=== PATIENT | female | born 1985 | race Two or more races ===

== ENCOUNTER 2024-11-06 15:22 | Emergency (ER) | payer OTHER, SELFPAY ==
[2024-11-06 15:45] VITALS: BP 145/86; PULSE 90; RESP 18; TEMP 36.6; O2SAT 98; BMI 23.2
--- NOTE | 2024-11-06 15:46 | ED_ITS ---
HPI - Eye Problem General Chief complaint: Burn/Smoke Inhalation Stated complaint: eye pain Time Seen by Provider: 11/06/24 16:39 Source: patient Mode of arrival: ambulatory Limitations: language barrier (Jenni speaking, user interface developer utilized) History of Present Illness ED Provider: Jo Ann Victor NP HPI Narrative: Patient is a 39-year-old female who presents emergency department for eval uation. She reports that a proximally 14:00 today she was cooking when hot oil had splattered up from the valentine to her face reports that there was a few areas on her forehead and her nose which were burning initially but she rinsed with cold water and has since stopped. She is complaining particularly of a burning sensation to the right eye with blurred vision. Does not wear contact lenses. She denies history of prior injury or blurred vision to this eye. Related Data Previous Rx's ?Medication ?Instructions ?Recorded ofloxacin 0.3 % eye drops 2 drp ophthalmic (eye) QID 5 days 11/06/24 #5 mL Allergies Allergy/AdvReac Type Severity Reaction Status Date / Time No Known Allergies Allergy Verified 11/06/24 15:50 Review of Systems Review of Systems: Yes all other systems are reviewed and are negative PMFSH Past Medical History Attestation statement: The following information was validated with the patient. Source: old records reviewed Physical Exam Vital Signs: Vital Signs: Last Vital Signs Temp 98 F 11/06/24 15:45 Pulse 90 11/06/24 15:45 Resp 18 11/06/24 15:45 BP 145/86 H 11/06/24 15:45 Pulse Ox 98 11/06/24 15:45 O2 Del Method Room Air 11/06/24 15:45 BMI result Body Mass Index 23.2 Appearance: Alert.?Oriented to person, place and time. No acute distress.?Normal affect. Eyes: Pupils equal, round and reactive to light.? EOMI. No nystagmus. Conjunctival normal. Sclera normal. IOP: Left - 17, Right -18. Visual acuity: Not able to be obtained, she is unable to read Snellen eye chart. Fluorescein staining with uptake at 7-8 o'clock. No chemosis. No hyphema. ENT: Pharynx normal.?? Neck: Normal inspection.? Neck supple.?? CVS: Heart sounds normal. Normal heart rate and rhythm.? Pulses normal.?? Respiratory: No respiratory distress.? Lung sounds clear to auscultation bilaterally?? Skin: Skin warm and dry.? Normal skin color.? Extremities: No lower extremity edema.? Neuro: Moves all extremities spontaneously. Sensation intact bilaterally. CN II- XII intact. No focal neuro deficits. Ambulates with normal steady gait. Course Course Course Narrative: This is an RME: Additional HPI, ROS, PE not included below will be deferred to primary provider. RME assessment and note performed by: Geraldine Wolf PA-C This is a [id number] who presents to the ER with complaints of facial pain. Pt states that while she was cooking, oil splattered up into her right eye and into the right side of her face. No abnormality seen on examination, she states burning sensation in her right eye. States that she does not take any medications at home to treat any medical problems. Plan: Eye examination, visual acuity Medical Decision Making Medical Decision Making MDM Narrative: Patient is a 39-year-old female who presents emergency department for evaluation after having cooking oil splash onto the face resulting in a burning pain to the right eye that is constant. On examination she has a corneal abrasion at 07:00 o'clock-08:00 o'clock. Normal IOP. Conjunctivae normal. No painful hordeolum o r painless chalazion on examination. No evidence of foreign body on examination, lid eversion is negative. No subconjunctival hemorrhage. No associated unilateral headache, fixed pupil, associated vomiting, or increased intra-ocular pressure to suggest acute angle glaucoma. No periorbital edema erythema or warmth to suggest periorbital cellulitis, no painful EOMI to suggest orbital cellulitis. Not described as a severe constant boring pain worse at night in the morning, nonradiating, to suggest scleritis. No ciliary flushing or consensual photophobia to suggest uveitis/iritis. On examination does not have corneal opacity or infiltrate with foreign body sensation, mucopurulent discharge or hypopyon in the setting of a presumed recent conjunctivitis to suggest keratitis. No painless acute loss of vision to suggest retinal detachment, vitreous detachment for hemorrhage. Differential Diagnosis Differential Diagnoses: The differential diagnosis associated with the presentation includes (See narrative above) Independent Historian Clinical information obtained from an independent historian. History obtained from or confirmed by: Spouse External Record Review External record reviewed: Outpatient record Prescription Management I considered prescription management with: Antibiotic Discharge Plan Discharge Clinical Impression: Abrasion, corneal Qualifiers: Encounter type: initial encounter Laterality: right Qualified Code(s): S05.01XA - Injury of conjunctiva and corneal abrasion without foreign body, right eye, initial encounter Patient Disposition: Home, Self-Care Instructions: Corneal Abrasion (ED) Additional Instructions: Examination today indicates that you have a corneal abrasion which is a scratch on the surface of the eye/the cornea. For this you have been given a prescription for antibiotic eyedrops. Place 2 drops into the right eye 4 times daily every 4-6 hours. Be sure that you do not touch the tip of the eyedrop to the surface of the eye. You will need to follow-up with an eye doctor to assure that things are healing normally. I provided contact information for the eye doctor associated with our hospital, Dr. Marie, contact their office on Friday. Return to emergency department with new or worsening symptoms or concerns Prescriptions: New ofloxacin 0.3 % drops 2 drp ophthalmic (eye) QID 5 Days Qty: 5 0RF Referrals: Santos Marie [Physician] - Print Language: Other
[2024-11-06] MEDS: Fluorescein Sodium STRIP 1 STRIP EYE-RIGHT (16:56)
[2024-11-06] MEDS: Tetracaine HCl/PF 0.5% Oph Sol 4 ML DROPS 1 DROP EYE-RIGHT (16:56)
[2024-11-06 18:04] VITALS: BP 146/88; PULSE 88; RESP 18; TEMP 36.8; O2SAT 98
[2024-11-06 18:15] VITALS: BP 146/88; PULSE 88; RESP 18; TEMP 36.8; O2SAT 98
== END 2024-11-06 18:16 | disposition home or self-care (01) ==
PROVIDERS: Emergency Provider Emergency Medicine
DX: S05.01XA Injury of conjunctiva and corneal abrasion without foreign body, right eye, initial encounter (principal); X10.2XXA Contact with fats and cooking oils, initial encounter; H57.11 Ocular pain, right eye; Y93.G3 Activity, cooking and baking; Y92.9 Unspecified place or not applicable; Y99.9 Unspecified external cause status
CPT/HCPCS: 99282; 99283

== ENCOUNTER 2024-11-28 11:55 | Emergency (ER) | payer OTHER, SELFPAY ==
[2024-11-28 11:56] VITALS: BP 115/74; PULSE 92; RESP 18; TEMP 36.9; O2SAT 99; BMI 22.4
--- NOTE | 2024-11-28 11:57 | ED_ITS ---
HPI - General Adult General Chief complaint: General Medical Stated complaint: nausea Time Seen by Provider: 11/28/24 15:19 Source: patient and procedures analyst (Farsi) Mode of arrival: ambulatory Limitations: no limitations History of Present Illness ED Provider: Brandon Herrera HPI narrative: 39-year-old female with pmh of TB and anemia presents to the ED for nausea, vomitting, diarrhea since last night and also had a syncopal episode last night due to diarrhea. patient denies having any chest pain, shortness of breath,headache, or abdominal pain before passing out last night. patient states syncopal episode occurred after having diarrhea. Patient denies hitting head, nausea, or vomiting. Related Data Previous Rx's ?Medication ?Instructions ?Recorded ofloxacin 0.3 % eye drops 2 drp ophthalmic (eye) QID 5 days 11/06/24 #5 mL cephalexin 500 mg capsule 500 mg PO QID 7 days #28 caps 11/28/24 ibuprofen 400 mg tablet 400 mg PO Q6H PRN fever or pain 7 11/28/24 days #28 tabs Allergies Allergy/AdvReac Type Severity Reaction Status Date / Time No Known Allergies Allergy Verified 11/28/24 12:15 Review of Systems 2 Review of Systems: nausea, vomitting, diarrhea, syncope ( last night) Yes all other systems are reviewed and are negative PMFSH Social History Social History Advance Directives: No Advance Directives Information Provided: Yes Physical Exam ED Vital Signs: Vital Signs - 24 hr 11/28/24 11:56 11/28/24 15:59 11/28/24 16:45 Temperature 98.4 F 98.5 F 98.5 F Pulse Rate 92 80 80 Respiratory Rate 18 16 16 Blood Pressure 115/74 112/63 112/63 Pulse Oximetry 99 99 99 Oxygen Delivery Method Room Air Room Air Room Air BMI result Body Mass Index 22.4 Const General: cooperative, healthy appearing, comfortable, no acute distress, well developed, alert, awake and Physically active [facility] Head: Yes normal to inspection, Yes No palpable skull fracture present, Yes normocephalic and Yes atraumatic Ears: hearing grossly normal bilaterally, external ears normal, TM's normal bilaterally, TM normal on the right, TM normal on the left, EAC's normal, mastoids normal and no periauricular adenopathy Throat: Yes posterior oropharynx normal, Yes tonsils normal and Yes uvula midline Eyes General: appearance normal, both eyes and all related structures Neck Neck: Yes normal visual inspection, Yes full ROM, Yes no lymphadenopathy, Yes no meningeal signs, Yes trachea midline, Yes supple, No anterior neck swelling and No tender Chest Chest palpation & inspection: normal inspection of the chest and normal palpation of entire chest wall Resp Effort & Inspection: normal respiratory effort and able to speak in complete sentences Auscultation: clear to auscultation bilaterally Cardio Jugular venous distension: no JVD Heart sounds: S1 normal heart sound present and S2 normal heart sound present GI Inspection: Yes normal to inspection Palpation (GI): Soft to palpation, not firm, nontender, no guarding and not rigid General: Yes no CVA tenderness Back/Spine/Pelvis Back: no CVA tenderness and No back tenderness Skin General skin exam: no rashes or lesions noted, elasticity normal and turgor normal Neuro General: gait normal, tone normal, moves all extremities, Normal light touch and pain sensation, no meningeal signs, no focal motor deficits, CN's II-XI intact bilaterally and normal sensation to monofilament Extrem General: Yes normal to inspection, Yes full ROM and Yes capillary refill normal Psych Appearance: grossly normal, well kempt and not disheveled Course Course Course Narrative: This is an RME performed by Sid Victor CNP: Additional HPI, ROS, PE not included below will be deferred to primary provider. Patient is a 39-year-old female Farsi speaking, with no pertinent past medical history, presents for evaluation of nausea, dizziness, generalized unwell feeling since last night. She reports at 23:00 she went to the bathroom had diarrhea upon getting up she felt weak in her legs and arms she tried to wash her face with cold water and ?then I fell?, believes that she was able to get herself back to bed. Due to language barrier her children were unable to call for EMS. She forgot that this is happened and her child reminded her this morning of what had happened. Remains with dizziness, nausea, and a headache. Denies chest pain or shortness of breath. Denies her children being ill with similar gastrointestinal symptoms. Denies possibility for , reporting last menstrual cycle 5 years ago, reports she was receiving hormonal injections up until 5 months ago when she arrived here from [facility]. Plan: EKG, serum labs, viral serologies, urinalysis, hCG Medical Decision Making Medical Decision Making [facility] Narrative: 39-year-old female presents to ED for nausea vomiting diarrhea and a vasovagal syncopal episode occurred last night. Horseheads head CT score is 0 no need for head CT scan. Not suspecting cervical spine fracture. EKG negative STEMI. Troponin after syncopal episode last night negative. Hear Score 0 Not suspecting PE, myocardial infarction, pericarditis, myocarditis, CHF, cardiac tamponade, or any life threatening etiologies. Patient positive Covid. Patient explained worrisome signs and informed to return to the ED immediately. P Differential Diagnosis Differential Diagnoses: The differential diagnosis associated with the presentation includes (COVID, influenza, RSV, strep, for ectopic , UTI) Admission/Observation Consideration of admission/observation: Escalation of care including admission/observation considered Lab Data [facility] Lab Attestation statement: I reviewed the patient's lab results. 11/28/24 12:29 11/28/24 12:29 Labs: Lab Results 11/28/24 Range/Units 12:29 WBC 6.4 (4.8-10.8) X10*3/uL RBC 4.38 (4.20-5.50) X10*6/uL Hgb 12.9 (12.0-16.0) g/dl Hct 37.3 (37.0-47.0) % MCV 85.2 (80.0-98.0) fL MCH 29.5 (27.0-33.0) pg MCHC 34.6 (31.0-35.0) g/dl RDW 11.2 (11.0-16.0) % Plt Count 334 (160-400) X10*3/uL MPV 9.7 (9.4-12.3) fL Immature Gran % (Auto) 0.3 (0.0-0.4) % Neut % (Auto) 59.9 (45-73) % Lymph % (Auto) 30.7 (20-40) % [place] % (Auto) 6.9 (2-11) % Eos % (Auto) 1.7 (0-4) % Baso % (Auto) 0.5 (0-2) % Lymph # (Auto) 2.0 (1.2-4.9) X10*3/uL [place] # (Auto) 0.4 (0.1-1.2) X10*3/uL Eos # (Auto) 0.1 (0.0-0.4) X10*3/uL Baso # (Auto) 0.0 (0.0-0.2) X10*3/uL Abs Immat Gran (auto) 0.02 (0.00-0.03) X10*3/uL Absolute Neuts (auto) 3.8 (2.0-8.3) x10*3/uL Absolute Nucleated RBC 0.000 (0.0-0.012) X10*3/uL Nucleated RBC % (auto) 0.0 (0.0-0.2) /100WBC PT 12.1 (10.9-12.4) SEC INR 1.0 (0.9-1.1) Sodium 140 (135-145) mmol/L Potassium 4.1 (3.3-5.1) mmol/L Chloride 111 H (96-108) mmol/L Carbon Dioxide 21 L (22-29) mmol/L Anion Gap 12 (12-20) BUN 18 H (9-16) mg/dL Creatinine 0.61 (0.5-1.4) mg/dL Estim Creat Clear Calc 89.8 Estimated GFR > 60 Random Glucose 91 (60-115) mg/dL Calcium 9.3 (8.4-10.2) mg/dL Magnesium 2.0 (1.6-2.6) mg/dL Total Bilirubin 0.5 (0.0-1.0) mg/dL AST 28 (5-31) U/L ALT 20 (0-31) U/L Alkaline Phosphatase 63 (39-117) U/L Troponin I High Sens < 2.7 (<3.5-17.0) ng/L B-Natriuretic Peptide < 10 (<100) pg/mL Total Protein 7.7 (6.5-8.0) g/dL Albumin 4.2 (3.5-5.0) g/dL Lipase 17 (8-78) U/L Urine Color Yellow Urine Appearance Clear Urine pH 6.0 (5.0-9.0) Ur Specific [place] 1.025 (1.005-1.025) Urine Protein Trace (Neg-Trace) mg/dL Urine Glucose (UA) Negative (Negative) mg/dL Urine Ketones Negative (Negative) mg/dL Urine Blood Negative (Negative) Urine Nitrite Negative (Negative) Ur Leukocyte Esterase Moderate (2+) H (Negative) Urine RBC 0-2 (0-2) /HPF Urine WBC 21-50 H (0-5) /HPF Ur Squamous Epith Cells 3-5 (0-2) /HPF Urine Bacteria 1+ (None Seen) Hyaline Casts 0-2 (0-2) /LPF Urine Test NEGATIVE (NEGATIVE) Influenza Type A (PCR) NEGATIVE (Negative) Influenza Type B (PCR) NEGATIVE (Negative) RSV RNA Qual (PCR) NEGATIVE (Negative) SARS-CoV-2 RNA (RT-PCR) POSITIVE A (Negative) Independent Interpretation I performed an independent interpretation of an: EKG (Negative Stemi) Independent Historian Clinical information obtained from an independent historian. History obtained from or confirmed by: Other (patient) Prescription Management I considered prescription management with: Antibiotic Discharge Plan Discharge Clinical Impression: COVID-19, Syncope, UTI (urinary tract infection) Patient Disposition: Home, Self-Care Instructions: Urinary Tract Infection in Women (ED), Syncope (ED), COVID-19 (Coronavirus Disease 2019) (ED) Additional Instructions: Recommend follow-up with primary care provider. Return to the ED immediately for any chest pain, shortness of breath, coughing up blood, leg swelling, calf pain, weakness, severe headache, neck pain, or any other concerning symptoms. Prescriptions: New cephalexin 500 mg capsule 500 mg PO QID 7 Days Qty: 28 0RF ibuprofen 400 mg tablet 400 mg PO Q6H PRN (Reason: fever or pain) 7 Days Qty: 28 0RF No Action ofloxacin 0.3 % drops 2 drp ophthalmic (eye) QID 5 Days Qty: 5 0RF Referrals: [facility] [Provider Group] (COVID) Interventions: ED Discharge Assessment Last Done: 11/28/24 16:45 Discharge Date/Time: 11/28/24 16:45 Print Language: Other
--- NOTE | 2024-11-28 12:16 | ECG_ITS ---
Test Reason : PALPITATIONS Blood Pressure : */* mmHG Vent. Rate : 90 BPM Atrial Rate : 90 BPM P-R Int : 140 ms QRS Dur : 72 ms QT Int : 350 ms P-R-T Axes : 72 81 48 degrees QTcB Int : 428 ms Normal sinus rhythm Normal ECG No previous ECGs available Referred By: Jo Ann Victor Electronically Signed By: MEHUL HERNANDEZ MD
[2024-11-28 12:35] LABS: MANUAL DIFF FLAG NO
[2024-11-28 12:37] LABS: Appearance Urine Clear; Basophils Percent Auto 0.5 % (0-2); Color Urine Yellow; Eosinophils Absolute Auto 0.1 X10*3/uL (0.0-0.4); Eosinophils Percent Auto 1.7 % (0-4); Glucose Urine UA Negative (Negative); Hematocrit 37.3 % (37.0-47.0); Hemoglobin 12.9 g/dl (12.0-16.0); Imm Gran Abs Auto 0.02 X10*3/uL (0.00-0.03); Imm Gran Pct Auto 0.3 % (0.0-0.4); Leukocyte Esterase Urine Moderate (2+) (Negative); Lymphocytes Percent Auto 30.7 % (20-40); Mean Corpuscular HGB Conc 34.6 g/dl (31.0-35.0); Mean Corpuscular Hemoglobin 29.5 pg (27.0-33.0); Mean Corpuscular Volume 85.2 fL (80.0-98.0); Mean Platelet Volume 9.7 fL (9.4-12.3); Monocytes Absolute Auto 0.4 X10*3/uL (0.1-1.2); Monocytes Percent Auto 6.9 % (2-11); Neutrophils Absolute Auto 3.8 x10*3/uL (2.0-8.3); Neutrophils Percent Auto 59.9 % (45-73); Nitrite Urine Negative (Negative); Platelet Count 334 X10*3/uL (160-400); Red Blood Count 4.38 X10*6/uL (4.20-5.50); Red Cell Distribution Width 11.2 % (11.0-16.0); Specific Gravity - Urine 1.025 (1.005-1.025); UMIC TRIGGER UACC YES; UPreg QC Valid YES; Urine Blood Negative (Negative); Urine Ketones Negative (Negative); Urine Protein Trace mg/dL (Neg-Trace); White Blood Count 6.4 X10*3/uL (4.8-10.8)
[2024-11-28 12:39] LABS: Bacteria Urine 1+ (None Seen); Hyaline Casts Urine 0-2 /LPF (0-2); RBC Urine 0-2 /HPF (0-2); UACC Culture Trigger YES; Urine Pregnancy NEGATIVE (NEGATIVE); WBC Urine 21-50 /HPF (0-5)
[2024-11-28 12:42] LABS: Prothrombin Time 12.1 SEC (10.9-12.4)
[2024-11-28 12:52] LABS: Alanine Aminotransferase 20 U/L (0-31); Albumin Level 4.2 g/dL (3.5-5.0); Alkaline Phosphatase 63 U/L (39-117); Anion Gap 12 (12-20); Aspartate Amino Transferase 28 U/L (5-31); Bilirubin Total 0.5 mg/dL (0.0-1.0); Blood Urea Nitrogen 18 mg/dL (9-16); Calcium 9.3 mg/dL (8.4-10.2); Carbon Dioxide 21 mmol/L (22-29); Chloride 111 mmol/L (96-108); Creatinine Clr Calc Pharmacy 89.8; Estimated Glomerular Filt Rate > 60; Glucose Random 91 mg/dL (60-115); Lipase 17 U/L (8-78); Potassium 4.1 mmol/L (3.3-5.1); Sodium 140 mmol/L (135-145); Total Protein 7.7 g/dL (6.5-8.0)
[2024-11-28 12:58] LABS: B Type Natriuretic Peptide < 10 pg/mL (<100)
[2024-11-28 13:01] LABS: Troponin-I High Sensitivity < 2.7 ng/L (<3.5-17.0)
[2024-11-28 13:13] LABS: Influenza A PCR NEGATIVE (Negative); Influenza B PCR NEGATIVE (Negative); Resp Syncy Virus RNA Qual PCR NEGATIVE (Negative); SARS COV2 PCR INHOUSE POSITIVE (Negative)
--- OUTSIDE RECORDS SUMMARY | 2024-11-28 13:43 | XMS_ITS | Encounter Summary ---
Author Organization [facility] Address [address] [place] [address] Care Team Providers Care Flanging Operator Name Role Phone Unavailable Primary Care Provider Unavailabl e Reason for Referral * Ophthalmology (Routine) - Pending Review Specialty Diagnoses / Procedures Referred By Angle t Referred To Contact Ophthalmology Diagnoses Abrasion of right cornea, subsequent encounter Kaylin Thayer FNP-C [address] [place] [phone] Phone: tel: fax: [facility] [address] [place] [address] Phone: tel: fax: Referral ID Status Reason Start Date Expiration Date Visits Requested Visits Authorized [id number] Pending Review Specialty Services Required 11/19/2024 11/19/2025 1 1 Comments Corneal abrasion Reason for Visit * Reason Comments Refugee Follow-Up Encounter Details Date Type Department Care Team (Late st Contact Info) Description 11/19/2024 2:00 PM EST Office Visit [address] [phone] Kaylin Thayer FNP-C [address] [place] [id number] Refugee health examination (Primary Dx); Abrasion of right cornea, subsequent encounter; Nonintractable episodic headache, unspecified headache type; Immunization due Social History Tobacco Use Types Packs/Day Years Used Date Smoking Tobacco: Never Passive Smoke Exposure: Never Smokeless Tobacco: Never Alcohol Use Standard Drinks/Week Comments Never 0 (1 standard drink = 0.6 oz pur e alcohol) Social Connections Answer Date Recorded Connectedness 0 06/23/2024 Financial Resource Strain Answer Date R ecorded Financial Resource Strain 0 2023 Stress Answer Date Recorded Stress 0 06/21/2024 Physical Activity Answer Date Recorded Physical Activity 0 06/21/2024 Food Insecurity Answer Date Recorded Food 0 07/16/2024 Transportation Needs Answer Date Record ed Transportation 0 06/21/2024 Housing Stability Answer Date Recorded Housing 0 06/21/2024 Safety and Environment Answer Date Chong rded Safety 1 06/23/2024 Utilities Answer Date Recorded Utilities 0 06/21/2024 Employment Answer Date Recorded Stress 0 06/23/2024 Comments No Sex and Gender Information Value Date Recorded Sex Assigned at Female 06/23/2024 10:24 AM PDT Legal Sex Female 8:04 AM PDT Gender Identity Female 06/23/2024 10:24 AM PDT Sexual Orientation Straight 06/23/2024 10 :24 AM PDT documented as of this encounter Last Filed Vital Signs Vital Sign Reading Time Taken Comments Blood Pressure 100/70 11/19/2024 2:29 PM EST Pulse 80 11/19/2024 2:29 PM EST Temperature - - Respiratory Rate 16 11/19/2024 2:29 PM EST Oxygen Saturation 98% 11/19/2024 2:29 PM EST Inhaled Oxygen Concentration - - Weight 55.3 kg (122 lb) 11/19/2024 2:29 PM EST Height 152.4 cm (5') 11/19/2024 2:29 PM EST Body Mass Index 23.83 11/19/2024 2:29 PM EST documented in this encounter Progress Notes * GALE Calabrese - 11/19/2024 2:29 PM EST Ursula Alexandre is a 39 year old female who presents for her second refugee visit. Accompanied by self. 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 Concerns: Went to urgent care/emergency room for redness in eye. Diagnosis of corneal abrasion. She never received medications. Vision and EOM intact. Reports redness. Reports chronic headaches, no n/v/d. Reports tension squeezing frontal bilateral Has been off depo for 6 months, and is interested in having her periods return Travel-related: No fever, chills, or malaise No vomiting or diarrhea No rash No cough or night sweats. Interim events: No Belarusian classes: Yes Work: No Health insurance:Yes S-15 completed and reviewed. BP 100/70 (Right Arm, Sitting, Regular Adult) Pulse 80 Resp 16 Ht 5' (1.524 m) Wt 122 lb (55.3 kg) LMP 06/20/2020 (Approximate) SpO2 98% BMI 23.83 kg/m?? OB Status Having periods Smoking Status Never BSA 1.53 m?? Physical Exam Constitutional: General: She is not in acute distress. HENT: Right Ear: Tympanic membrane normal. Left Ear: Tympanic membrane normal. Eyes: General: Scleral icterus present. Right eye: No discharge. Left eye: No discharge. Extraocular Movements: Extraocular movements intact. Conjunctiva/sclera: Conjunctivae normal. Pupils: Pupils are equal, round, and reactive to light. Cardiovascular: Rate and Rhythm: Normal rate and regular rhythm. Pulses: Normal pulses. Heart sounds: Normal heart sounds. Pulmonary: Effort: Pulmonary effort is normal. No respiratory distress. Breath sounds: Normal breath sounds. Abdominal: General: Bowel sounds are normal. Palpations: Abdomen is soft. 1. Adjusting well to life in the [place]: Yes. Referral to : No 2. Nutritional status: Body mass index is 23.83 kg/m??. 4. Patient advised to schedule dental evaluation and cleaning. Referral placed: No 5. Screening labs: Review of labs: Giardia: pending TB screening: positive - asymptomatic Referral placed: Yes HIV screening: negative Urinalysis: negative Hep B:: immune Hep C: negative Varicella immune: immune GC/Chlamydia: negative Syphilis: negative Review of CBC: negative 6. Catch up immunizations underway 7. Health education provided: -dental education -encouraged focus on school success/ learning Belarusian -how to address medical emergencies -health Screening and strategies for managing chronic conditions 8. Family planning discussed/ contraception offered: Yes, declined. Discussed return of periods maytake 1-2 years after penitentiary depo use Follow up for complete physical exam in 3 months or PRN Z02.89 Refugee health examination (primary encounter diagnosis) Plan : HCG URINE MCKESSON (POCT) S05.01XD Abrasion of right cornea, subsequent encounter Plan : OFLOXACIN 0.3 % EYE DROPS - Place 3 Drops into the right eye 4 (four) times daily for 5 days REFERRAL TO OPHTHALMOLOGY R51.9 Nonintractable episodic headache, unspecified headache type Plan : ACETAMINOPHEN 500 MG TABLET - Take 1 Tablet by mouth every 6 (six) hours as needed for pain Z23 Immunization due Plan : SARSCOV2 VACC 30MCG/0.3ML JAHAIRA-SUCROSE IM USE documented in this encounter Miscellaneous Notes * Patient Instructions - GALE Calabrese - 11/19/2024 2:56 PM EST If you are not able to keep your appointment please call 24-48 hours before your appointment to cancel or reschedule. documented in this encounter Plan of Treatment Scheduled Referrals Name Type Priority Associated Diagnoses Orde r Schedule REFERRAL TO OPHTHALMOLOGY Referral Routine Abrasion of right cornea, subsequent encounter Ordered: 11/19/2024 documented as of this encounter Procedures Procedure Name Priority Date/Time Associated Diagnosis Comments HCG URINE MCKESSON (POCT) Routine 11/19/2024 3:19 PM EST Refugee health examination documented in this encounter Results * HCG URINE MCKESSON (POCT) (11/19/2024 3:19 PM EST) URINE HCG NEGATIVE NEGATIVE [facility] BACK OFFICE POCT INTERNAL CONTROL PASS PASS [facility] BACK OFF[facility] POCT Urine Urine specimen / Unknown 11/19/2024 3:19 PM EST [facility] - NO BLOOD DRAW Final Result [facility]- BACK OFFICE POCT documented in this encounter Visit Diagnoses Diagnosis Refugee health examination- Primary Health examination of defined subpopulation Abrasion of right cornea, subsequent encounter Nonintractable episodic headache, unspecified headache type Immunization due Need for prophylactic vaccination and inoculation against unspecified single disease documented in this encounter Additional Health Concerns Assessment Noted Time PHQ-9 Depression Total Score: 0 11/19/19 25 2:30 PM PST documented as of this encounter
--- OUTSIDE RECORDS SUMMARY | 2024-11-28 13:43 | XMS_ITS | Clinical Summary ---
Author Organization [facility] Address [address] [place] [address] Care Team Providers Care Service Observer Chief Name Role Phone Unavailable Primary Care Provider Unavailabl e Source Comments PLEASE NOTE, if this patient is a minor, it may be UNLAWFUL to discuss sensitive information that is contained in these records (such as FAMILY PLANNING, MENTAL HEALTH or SUBSTANCE ABUSE) with the minor patient's parent or other person without the patient's specific authorization.[facility] Allergies No known active allergies Medications acetaminophen (TYLENOL) 500 mg tabletIndication s:Nonintractable episodic headache, unspecified headache type Take 1 Tablet by mouth every 6 (six) hours as needed for pain 30 Tablet 1 5 Active acetaminophen (TYLENOL) 500 mg tabletIndication s:Nonintractable episodic headache, unspecified headache type Take 1 Tablet by mouth every 6 (six) hours as needed for pain 30 Tablet 1 4 11/19/19 25 Discontinue d(Reorder (E-Cancel Not Sent)) ofloxacin (OCUFLOX) 0.3 % ophthalmic solutionIndicati ons:Abrasion of right cornea, subsequent encounter Place 3 Drops into the right eye 4 (four) times daily for 5 days 5 mL 5 11/24/19 25 Active Problems Problem Noted Date Diagnosed Date Hepatitis B immune 07/02/2024 Overview (07/02/2024): Per serology Positive QuantiFERON-TB Gold test 07/02/2024 Nonintractable episodic headache 06/23/2024 Hx of tuberculosis Overview (07/07/2024): 15 years ago positive for TB and took meds. Not hospitalized. Class B; abnormal Chest Xray; there are reticular and nodular opacities in both upper lobes, associated with upward traction of both hilia per refugee paperwork. Encounters Date Type Department Care Team Description 11/19/2024 2:00 PM EST Office Visit [address] [id number] Kaylin Thayer FNP-C Refugee health examination (Primary Dx); Abrasion of right cornea, subsequent encounter; Nonintractable episodic headache, unspecified headache type; Immunization due from Last 3 Months Immunizations Name Administration Dates Next Due COVID-19,SARS-COV-2 VACCINE, UNSPECIFIED (US Adm in) 06/07/2024 HEP B, PED/ADOL 06/07/2024,02/03/2024 INFLUENZA, SEASONAL, INJECTABLE 02/03/2024 IPV 02/03/2024 Influenza (FLUBLOK),recombinant,injectable,preservative Free 06/23/2024 [email or web address] COVID-19 VACCINE 02/03/2024 MMR (MMR II/Priorix) 06/07/2024,02/03/2024 Retroficiency COVID-19 (Comirnaty), Mrna, Lnp-s, Pf, Chidi-sucrose, 30 Mcg/0.3 Ml, 12yr+ 11/19/2024 TDAP 06/07/2024 Td (adult) unspecified 02/03/2024 Varicella, Live Vaccine 06/07/2024,02/03/2024 Family History Medical History Relation Name Comments Other (See Comments) Father killed in war No Known Problems Mother Relation Name Status Comments Father Mother Alive Social History Tobacco Use Types Packs/Day Years Used Date Smoking Tobacco: Never Passive Smoke Exposure: Never Smokeless Tobacco: Never Tobacco Cessation:Counseling Given: Not Answered Alcohol Use Standard Drinks/Week Comments Never 0 [...] Orientation Straight 06/23/2024 10 :24 AM PDT Last Filed Vital Signs Vital Sign Reading Time Taken Comments Blood Pressure 100/70 11/19/2024 2:29 PM EST Pulse 80 11/19/2024 2:29 PM EST Temperature 36.9 ??C (98.4 ??F) 06/23/2024 1:21 PM ED T Respiratory Rate 16 11/19/2024 2:29 PM EST Oxygen Saturation 98% 11/19/2024 2:29 PM EST Inhaled Oxygen Concentration - - Weight 55.3 kg (122 lb) 11/19/2024 2:29 PM EST Height 152.4 cm (5') 11/19/2024 2:29 PM EST Body Mass Index 23.83 11/19/2024 2:29 PM EST Plan of Treatment Health Maintenance Due Date Last Done Comments Diabetes Screening 1986 HPV Screening 1986 Pap + HPV 1986 Cervical Cancer Screening 2007 Pap Smear 2007 Relationship Safety Screening/Counseling 06/23/2025 06/23/2024 Tobacco Screening 11/19/2025 11/19/2024 Hypertension Screening (#1) 11/19/2027 Imm-DTaP/Tdap/Td (2 - Td or Tdap) 06/07/2034 024, 02/03/2024 Imm-Hepatitis B Discontinued 06/07/2024, 02/03/2024 HIV Screening Completed 06/23/2024 Hepatitis B Screening Completed 06/23/2024, Hepatitis C Screening Completed 06/23/2024, Imm-Influenza Completed 06/23/2024, 02/03/2024 Alcohol and Drug Screen Completed 11/19/2024, 06/23 Depression Annual Screen Completed 11/19/2024 [id number] Completed 11/19/2024, 05/20, 02/03/2024 Cervical Ablation/Cold-Knife Conization Discontinued Cervical Cryotherapy Discontinued Colposcopy Discontinued Endometrial Biopsy Discontinued Excision/Leep Discontinued HPV Genotyping Discontinued Vaginal Pap Discontinued Vulvoscopy Discontinued Procedures Procedure Name Priority Date/Time Associated Diagnosis Comments HCG URINE MCKESSON (POCT) Routine 11/19/2024 3:19 PM EST Refugee health examination HIV 1/2 AG & AB W/RFLX (4TH GEN) Routine 06/23/2024 2:26 PM EDT Encounter for health examination of refugee HEPATITIS B SURF ANTIBODY HBSAB Routine 06/23/2024 2:26 PM EDT Encounter for health examination of refugee HEPATITIS C AB W/RFLX HCV RNA, QT, RT PCR Routine 06/23/2024 2:26 PM EDT Encounter for health examination of refugee from Last 3 Months or Most Recently Relevant to Health Maintenance Results * HCG URINE MCKESSON (POCT) (11/19/2024 3:19 PM EST) URINE HCG NEGATIVE NEGATIVE [facility] POCT INTERNAL CONTROL PASS PASS [facility] POCT Urine Urine specimen / Unknown 11/19/2024 3:19 PM EST Kaylin Thayer [employer] LAB - NO BLOOD DRAW Final Result [facility] POCT * HEPATITIS C AB W/RFLX HCV RNA, QT, RT PCR (06/23/2024 2:26 PM EDT) HEPATITIS C ANTIBODY NON-REACT EMILE NON-REACT EMILE [employer] [facility] Comment: HCV antibody was non-reactive. There is no laboratory evidence of HCV infection. In most cases, no further action is required. However, if recent HCV exposure is suspected, a test for HCV RNA (test code 54615) is suggested. For additional information please refer to http://education.Flat.to/faq/XMG43i0 (This link is being provided for informational/ educational purposes only.) Blood Blood / Unknown 06/23/2024 2 :26 PM EDT 06/23/2024 2:27 PM EDT Narrative [facility] - 07/03/2024 1:31 AM EDT SPLIT 06/23/2024 FROM [id number] COLLECTION KIT GIVEN TO PATIENT. PATIENT ADVISED TO RETURN. Teodora Elder [facility] - BLOOD DRAW Edited Result - Final [employer] [address] [address], [employer] [address] [address] * HIV 1/2 AG & AB W/RFLX (4TH GEN) (06/23/2024 2:26 PM EDT) [facility] HIV AG/AB, 4TH GEN NON-REAC TIVE NON-REAC TIVE [facility] [employer] [facility] Comment: HIV-1 antigen and HIV-1/HIV-2 antibodies were not detected. There is no laboratory evidence of HIV infection. PLEASE NOTE: This information has been disclosed to you from records whose confidentiality may be protected by state law. ??If your state requires such protection, then the state law prohibits you from making any further disclosure of the information without the specific written consent of the person to whom it pertains, or as otherwise permitted by law. A general authorization for the release of medical or other information is NOT sufficient for this purpose. ?? For additional information please refer to http://education.Genophen.ActSocial/faq/XDE252 (This link is being provided for informational/ educational purposes only.) The performance of this assay has not been clinically validated in patients less than 2 years old. Blood Blood / Unknown 06/23/2024 2 :26 PM EDT 06/23/2024 2:27 PM EDT Narrative [facility] - 07/03/2024 1:31 AM EDT SPLIT 06/23/2024 FROM [id number] COLLECTION KIT GIVEN TO PATIENT. PATIENT ADVISED TO RETURN. [facility] - BLOOD DRAW Final Result Performing Organization Address City/[facility]/ZIP Co de Phone Number [employer] [address] [address], [employer] [facility] [address] [place] [address] * (ABNORMAL) HEPATITIS B SURF ANTIBODY HBSAB (06/23/2024 2:26 PM EDT) HEPATITIS B SURFACE ANTIBODY QL REACTIVE( A) NON-REACT EMILE [employer] Blood Blood / Unknown 06/23/2024 2 :26 PM EDT 06/23/2024 2:27 PM EDT Narrative [employer] - 07/03/2024 1:31 AM EDT SPLIT 06/23/2024 FROM [id number] COLLECTION KIT GIVEN TO PATIENT. PATIENT ADVISED TO RETURN. [employer] Elder [facility] - BLOOD DRAW Edited Result - Final Performing Organization Address City/[facility] Co de Phone Number [employer] [address] [address], [employer] [address] [address] from Last 3 Months or Most Recently Relevant to Health Maintenance Insurance [place] MEDICAID
--- NOTE | 2024-11-28 15:56 | PC.NURSE ---
Pt states a syncope episode last night, pt complains of fever and chills, NO LOC, No thinners during syncope episode per pt.
[2024-11-28 15:59] VITALS: BP 112/63; PULSE 80; RESP 16; TEMP 36.9; O2SAT 99
[2024-11-28 16:45] VITALS: BP 112/63; PULSE 80; RESP 16; TEMP 36.9; O2SAT 99
== END 2024-11-28 16:45 | disposition home or self-care (01) ==
PROVIDERS: Nurse Practitioner Family; Emergency Provider Emergency Medicine
DX: U07.1 COVID-19 (principal); N39.0 Urinary tract infection, site not specified; R11.2 Nausea with vomiting, unspecified; R00.2 Palpitations; R55 Syncope and collapse; Z51.81 Encounter for therapeutic drug level monitoring; Z79.899 Other long term (current) drug therapy
CPT/HCPCS: 0241U; 80053; 81001; 81025; 83690; 83735; 83880; 84484; 85025; 85610; 87086; 93005; 99283; 99284

== ENCOUNTER → 2024-11-28 12:16 | Outpatient (BNV) | payer OTHER, SELFPAY | PROVIDERS: Emergency Provider Emergency Medicine; Visit Provider Internal Medicine Cardiovascular Disease | DX: R00.2 Palpitations (principal) | CPT/HCPCS: 93010 ==

== ENCOUNTER 2025-01-06 22:44 | Emergency (ER) | payer MEDICAID, SELFPAY ==
--- NOTE | ~2025-01-06 | XR_ITS ---
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 No displaced fracture or dislocation. Mild atelectasis in the [id number]. Also question mild pneumonitis in the left lung apex. No radiopaque retained foreign body. IMPRESSION: 1. No acute fracture or dislocation of the left shoulder. 2. Mild atelectasis and/or pneumonitis in partially imaged left upper lobe. This document has been electronically signed by: Drake Padilla MD on 01/07/2025 01:03:40
--- NOTE | ~2025-01-06 | XR_ITS ---
CLINICAL HISTORY: fall, left elbow pain 3 view left elbow Comparison: None Findings: No acute displaced fractures or dislocations. Small effusion suggested. No erosions. No large effusion. No radiopaque foreign body. IMPRESSION: 1. No acute fracture or dislocation. This document has been electronically signed by: Drake Padilla MD on 01/06/2025 23:34:12
[2025-01-06 22:49] VITALS: BP 124/81; PULSE 72; RESP 16; TEMP 36.6; O2SAT 99; BMI 18.9
[2025-01-06 23:33] VITALS: BP 110/71; PULSE 86; RESP 16; O2SAT 97
--- NOTE | 2025-01-07 00:08 | PC.NURSE ---
MD at bedside. Plan for shoulder xray.
[2025-01-07] MEDS: Acetaminophen 325 MG TABLET 975 MG PO (00:09)
[2025-01-07] MEDS: Ibuprofen 400 MG TABLET PO (00:09)
--- NOTE | 2025-01-07 00:14 | PC.NURSE ---
XRay at bedside for imaging of shoulder.
--- NOTE | 2025-01-07 00:37 | ED_ITS ---
HPI - Extremity Problem General Chief complaint: Extremity Injury, Upper Stated complaint: left arm inj Time Seen by Provider: 01/06/25 23:50 Source: patient Mode of arrival: ambulatory Limitations: no limitations History of Present Illness ED Provider: JUAREZ HPI Narrative: 39 yo female with no PMH and not on thinners states she tripped and fell on her stairs while taking out trash. She had no LOC or headstrike she states all of her weight went on L shoulder and L elbow - she is R handed. She has no chest / abdomen / back pain. She did not take any medications prior to arrival - denies any other trauma able to walk. MD Complaint: extremity pain and joint pain Onset (ago): hour(s) (SALES INTERN) Pain Consistency: constant Location: left and upper extremity Quality: aching Radiation: distal Relieving factors: immobilization Exacerbating factors: range of motion and palpation Associated symptoms: denies other symptoms Context: other (trauma) Related Data Previous Rx's ?Medication ?Instructions ?Recorded ofloxacin 0.3 % eye drops 2 drp ophthalmic (eye) QID 5 days 11/06/24 #5 mL cephalexin 500 mg capsule 500 mg PO QID 7 days #28 caps 11/28/24 ibuprofen 400 mg tablet 400 mg PO Q6H PRN fever or pain 7 11/28/24 days #28 tabs Allergies Allergy/AdvReac Type Severity Reaction Status Date / Time No Known Allergies Allergy Verified 01/06/25 22:53 Review of Systems Review of Systems: Constitutional : No Fever, No Chills ENT/Mouth : No Ear Pain, No Hoarseness, No sore throat Eyes: No Eye Pain, No Swelling, No Redness, No Foreign Body Cardiovascular : No Chest Pain, No SOB Respiratory : No Cough, No Dyspnea Gastrointestinal : No Nausea, No Vomiting, No Diarrhea, No abdominal Pain Genitourinary : No Dysuria, No Hematuria Musculoskeletal : positive joint pain, No Myalgias, No Joint Swelling Skin : No Skin lacerations, No rash Neuro : No Weakness, No Numbness, No Loss of Consciousness, No Dizziness, No Headache All other systems reviewed and are negative [facility] Past Medical History Attestation statement: The following information was validated with the patient. Source: old records reviewed Medical History (Updated 01/07/25 @ 00:56 by Ambre Ware DO) COVID-19 Social History Social History (Updated 01/07/25 @ 00:39 by Amber Ware DO) Patient Tobacco Use Status: Never used Tobacco Advance Directives: No Do you have a plan to hurt others: No Plan Physical Exam Vital Signs: Vital Signs: Last Vital Signs Temp 97.8 F 01/06/25 22:49 Pulse 86 01/06/25 23:33 Resp 16 01/06/25 23:33 BP 110/71 01/06/25 23:33 Pulse Ox 97 01/06/25 23:33 O2 Del Method Room Air 01/06/25 23:33 BMI result Body Mass Index 18.9 Appearance: Alert. Oriented X3. No acute distress. Eyes: Pupils equal, round and reactive to light. ENT: Pharynx normal. Atraumatic Neck: Normal inspection. Neck supple. CVS: Normal heart rate and rhythm. Pulses normal. Respiratory: No respiratory distress. Breath sounds normal. Abdomen: Soft and non-tender. atraumtic Back: atraumatic Skin: Skin warm and dry. Normal skin color. Normal skin turgor. Extremities: No lower extremity edema. no pain/deformity to hand or wrist c/o pain posterior elbow - 2+ radial pulse, grasp and SILT intact, L shoulder pain no clavicular pain. Neuro: Oriented X 3. No motor deficit. No sensory deficit. CN2-12 intact Course Course Course Narrative: shoulder read - no chest pain/dyspnea, clear lungs and she has no chest wall trauma doubt pneumonitis/contusion Medications Administered Discontinued Medications Generic Name Dose Route Start Last Admin Trade Name Nayanq PRN Reason Stop Dose Admin Acetaminophen 975 mg 01/07/25 00:05 01/07/25 00:09 Acetaminophen 325 Mg Tablet PO 01/07/25 00:06 975 mg ONCE ONE Administration Ibuprofen 400 mg 01/07/25 00:05 01/07/25 00:09 Ibuprofen 400 Mg Tablet PO 01/07/25 00:06 400 mg ONCE ONE Administration Medical Decision Making Medical Decision Making [facility] Narrative: 39 yo female with fall no headstrike no neck pain she has isolated L elbow and shoulder pain she is NV intact, denies trunk injury or leg injury at this time xrays of L elbow and shoulder and place in sling - she is NV intact, PO pain control Differential Diagnosis Differential Diagnoses: The differential diagnosis associated with the presentation includes sprain, strain, fracture Admission/Observation Consideration of admission/observation: Escalation of care including admission/observation considered xrays negative Independent Interpretation I performed an independent interpretation of an: Plain X-Ray (no fracture) Radiology Impression Discussion of test interpretation with radiology: I have reviewed the radiologist's reading. Prescription Management I considered prescription management with: Pain Medication Procedures Orthopedic Splinting/Casting Injury #1: Side: left Upper Extremity Injury Location: shoulder and elbow Upper Extremity Immobilizer: sling/shoulder immobilizer Additional Comments: NV intact Discharge Plan Discharge Clinical Impression: Elbow sprain Qualifiers: Encounter type: initial encounter Laterality: left Qualified Code(s): S53.402A - Unspecified sprain of left elbow, initial encounter Shoulder sprain Qualifiers: Encounter type: initial encounter Shoulder sprain type: unspecified sprain Laterality: left Qualified Code(s): S43.402A - Unspecified sprain of left shoulder joint, initial encounter Patient Disposition: Home, Self-Care Instructions: Elbow Sprain (ED), Shoulder Sprain (ED) Additional Instructions: negative xrays for broken bones please wear sling for 5 days for pain - move wrist and hand return for numbness, weakness or any other concerns call orthopedics in morning to follow up Prescriptions: No Action ofloxacin 0.3 % drops 2 drp ophthalmic (eye) QID 5 Days Qty: 5 0RF cephalexin 500 mg capsule 500 mg PO QID 7 Days Qty: 28 0RF ibuprofen 400 mg tablet 400 mg PO Q6H PRN (Reason: fever or pain) 7 Days Qty: 28 0RF Referrals: [facility] [place] Orthopedic Surgeons [Provider Group] Print Language: Other
[2025-01-07 01:19] VITALS: BP 112/74; PULSE 74; RESP 16; O2SAT 97
--- NOTE | 2025-01-07 01:19 | PC.NURSE ---
Paul applied. [place] paperwork provided.
[2025-01-07 01:20] VITALS: BP 0/0; PULSE 0; RESP 0; TEMP -17.7; TEMP 0; O2SAT 0
== END 2025-01-07 01:21 | disposition home or self-care (01) ==
PROVIDERS: Emergency Provider Emergency Medicine
DX: S53.402A Unspecified sprain of left elbow, initial encounter (principal); S43.402A Unspecified sprain of left shoulder joint, initial encounter; W10.8XXA Fall (on) (from) other stairs and steps, initial encounter; Y93.E9 Activity, other interior property and clothing maintenance; Y92.018 Other place in single-family (private) house as the place of occurrence of the external cause; Y99.9 Unspecified external cause status
CPT/HCPCS: 73030; 73080; 99283; 99284

== ENCOUNTER → 2025-01-06 23:13 | Outpatient (BNV) | payer MEDICAID, SELFPAY | PROVIDERS: Emergency Provider Emergency Medicine; Visit Provider Radiology Neuroradiology | DX: M25.522 Pain in left elbow (principal); W19.XXXA Unspecified fall, initial encounter | CPT/HCPCS: 73080 ==

== ENCOUNTER → 2025-01-07 00:05 | Outpatient (BNV) | payer MEDICAID, SELFPAY | PROVIDERS: Emergency Provider Emergency Medicine; Visit Provider Radiology Neuroradiology | DX: M25.512 Pain in left shoulder (principal); W19.XXXA Unspecified fall, initial encounter | CPT/HCPCS: 73030 ==

== ENCOUNTER 2025-01-31 14:56 | Emergency (ER) | payer MEDICAID, SELFPAY ==
--- NOTE | ~2025-01-31 | CT_ITS ---
CLINICAL HISTORY: L mastoid tenderness, decreased tearing CT temporal bones without contrast Comparison: None Findings: Right temporal bone: The middle ear cavity ossicles are surrounded with inflammatory tissue which extends into the epi tympanum and petrous bone. The posterior tympanic tympanic membrane, and internal auditory canals are unremarkable. The scutum is sharp. There is erosion of the left facial nerve canal. There is erosion of the semicircular canals. Visualized paranasal sinuses and mastoid air cells are clear. Temporomandibular joints are intact. No acute fracture or dislocation. Left temporal bone: The middle ear ossicles are surrounded with soft tissue inflammatory soft tissue which extends into the epitympanum , hypotympanum and petrous bone. The tympanic membranes are unremarkable. There is erosion of the facial nerve canal There is erosion of semicircular canals with inflammatory soft tissue extending to the middle ear cavity, image 76 -77/289, series 2, and image 123/289, series 2. Scutum is sharp. Visualized paranasal sinuses and mastoid air cells are clear. Temporomandibular joints are intact. No acute fracture or dislocation. Impression: Left otitis media. Right otitis media. 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
[2025-01-31 15:08] VITALS: BP 120/81; PULSE 96; RESP 16; TEMP 36.6; O2SAT 98; BMI 21.1
--- NOTE | 2025-01-31 15:13 | ED.GENADULT ---
HPI - General Adult General Chief complaint: Ear Problems Stated complaint: Severe Ear Pain Time Seen by Provider: 01/31/25 19:10 Source: patient Mode of arrival: ambulatory Limitations: language barrier (Patient was from [place] and speaks [place]) History of Present Illness ED Provider: Dr. Chip Donis HPI narrative: 39-year-old female with no significant past medical history who presents emergency department for evaluation of bilateral ear pain with decreased hearing since last night. She states that she was having pain in both ears right greater than left. She states that she has significant decreased hearing in her right ear compared to her left ear. The patient states that while she was in [place], she was having problems with her ears over to your. With intermittent pain and intermittent loss of hearing but she never had any treatment. She states that last night the pain in both ears came on gradually but became severe. She denied fever, chills, headache, nausea, vomiting or diarrhea. Provider at triage noted the following: PE/vitals: pain on manipulation of left pinna. +mastoid tenderness, no fluctuance. no protrusion of the auricle. left EAC erythematous, partially visualize left TM erythematous CT scan of the Head/mastoids was obtained with the radiology impression below: Impression: Left otitis media. Right otitis media. 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 This document has been electronically signed by: Michael Ray MD on 01/31/2025 18:05:01 Related Data Previous Rx's ?Medication ?Instructions ?Recorded ofloxacin 0.3 % eye drops 2 drp ophthalmic (eye) QID 5 days 11/06/24 #5 mL cephalexin 500 mg capsule 500 mg PO QID 7 days #28 caps 11/28/24 ibuprofen 400 mg tablet 400 mg PO Q6H PRN fever or pain 7 11/28/24 days #28 tabs acetaminophen 500 mg tablet 1,000 mg (2 x 500 mg) PO Q6H PRN 01/31/25 (Tylenol Extra Strength) pain #20 tabs amoxicillin 875 mg-potassium 1 tab PO Q12H 14 days #28 tabs 01/31/25 clavulanate 125 mg tablet ibuprofen 400 mg tablet 400 mg PO TID PRN fever or pain 01/31/25 #30 tabs Allergies Allergy/AdvReac Type Severity Reaction Status Date / Time No Known Allergies Allergy Verified 01/31/25 15:16 Review of Systems Review of Systems: Yes all other systems are reviewed and are negative [facility] Past Medical History Medical History (Updated 01/31/25 @ 21:56 by Chip Donis MD) COVID-19 Social History Social History (Updated 01/07/25 @ 00:39 by Amber Ware DO) Patient Tobacco Use Status: Never used Tobacco Smoked in Last 30 Days: No Use of substances other than those prescribed or required for medical reasons: No Advance Directives: No Advance Directives Information Provided: No Do you have a plan to hurt others: No Plan Physical Exam ED Vital Signs: Vital Signs - 24 hr 01/31/25 15:08 01/31/25 19:18 Temperature 98 F 98.6 F Pulse Rate 96 87 Respiratory Rate 16 16 Blood Pressure 120/81 109/65 Pulse Oximetry 98 98 Oxygen Delivery Method Room Air Room Air BMI result Body Mass Index 21.1 Vital signs were normal Exam: General: Awake, alert in no distress Head: Normocephalic, atraumatic EENT: Mouth revealed moist membranes with no erythema or exudates. External ears appear to be normal. Patient does have tenderness palpation pinna left ear as well as tenderness palpation of the left mastoid area. Both tympanic membranes appear to very erythematous with loss of landmarks. Hearing tuning fork test: Yuen exam: Localizes to the left ear Air versus bone conduction: Bone conduction greater than air conduction in both ears. Neck: Supple with no adenopathy Lungs: Breath sounds symmetric bilaterally, no wheezing, rales or rhonchi Chest: symmetric movement, nontender Heart: regular rate and rhythm, normal S1, S2 no murmurs or rubs Abdomen: soft, non-tender, nondistended, normal bowel sounds Back: no vertebral tenderness, no CVAT Extremities: no deformities, moves all extremities symmetrically Neuro: Awake, alert, oriented, normal speech, cranial nerves intact, moves all extremities symmetrically Psych: Pleasant, cooperative Course Course Course Narrative: This is a Rapid Medical Examination (RME) performed by Bela Fernandes PA-C in triage. Full HPI, ROS, assessment and treatment plan per primary provider in the Main ED. 01/31/25 [id number] JADIEL Miles Hx: 39 yo jenni speaking female here for eval of severe left ear pain and decreased hearing since last night. pain to entire ear. reports posterior ear pain. 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 PE/vitals: pain on manipulation of left pinna. +mastoid tenderness, no fluctuance. no protrusion of the auricle. left EAC erythematous, partially visualize left TM erythematous Plan: ct mastoid Medications Administered Generic Name Dose Route Start Last Admin Trade Name Freq PRN Reason Stop Dose Admin Azithromycin 500 mg/ Sodium 250 mls @ 125 mls/hr 01/31/25 19:55 01/31/25 20:27 Chloride IV 01/31/25 21:54 125 mls/hr ONCE ONE Administration Discontinued Medications Generic Name Dose Route Start Last Admin Trade Name Freq PRN Reason Stop Dose Admin Ceftriaxone Sodium 1 gm 01/31/25 19:55 01/31/25 20:27 Ceftriaxone Sodium 1 Gm Vial IVPUSH 01/31/25 19:56 1 gm ONCE ONE Administration Ketorolac Tromethamine 30 mg 01/31/25 19:55 01/31/25 20:27 Ketorolac Tromethamine 15 Mg/Ml Vial IVPUSH 01/31/25 19:56 30 mg ONCE STA Administration Medical Decision Making Medical Decision Making MDM Narrative: 39-year-old female with no significant past medical history who presents emergency department for evaluation of bilateral ear pain with decreased hearing since last night. She states that she was having pain in both ears right greater than left. She states that she has significant decreased hearing in her right ear compared to her left ear. The patient states that while she was in [place], she was having problems with her ears over to your. With intermittent pain and intermittent loss of hearing but she never had any treatment. She states that last night the pain in both ears came on gradually but became severe. Review of systems were negative. Vital signs were normal. Both tympanic membranes were erythematous with loss of landmarks, patient did have tenderness palpation of the pinna of the left ear and tenderness over the left mastoid area. Yuen test localized to the left ear. Bone conduction was louder than your conduction in both ears. Differential diagnosis: ?Includes but is not limited to bilateral otitis media, left otitis externa, left mastoiditis, anemia, electrolyte abnormalities Course: 20:[address] scan of the patient's head and mastoids was concerning for both left and right otitis media with the erosion of the bilateral facial nerve canals and semicircular canals. I ordered ceftriaxone 1 g IV and Toradol 15 mg IV for the patient. Given the unexpected finding on the CT scan, I will contact [facility] to try to discuss this finding with their ENT since we do not have ENT coverage. 21:49 I did discuss the patient was presentation with the ENT at [facility], Dr. Knight. After this discussion, it was felt that the patient can be treated as an outpatient with close follow-up. The patient will be started on Augmentin 875/125 q.12 hours times 14 days. She was also prescribed Tylenol and ibuprofen for pain. Dr. Knight recommended against steroids at this time. The patient has an appointment in the [facility], [address] [place] [address] at 09:00. I did discuss this with the patient, she was not sure if she can get a ride to the office. I did have our case assistant talk to the patient to see if we can facilitate a ride for her. Admission/Observation Consideration of admission/observation: Escalation of care including admission/observation considered (Yes) Consult Healthcare Provider Management of the patient was discussed with: Lumber Tallier (EENT physician at [facility], Dr. Knight) Lab Data MDM Lab Attestation statement: I reviewed the patient's lab results. Labs: Lab Results 01/31/25 Range/Units 15:29 Beta HCG, Quant < 2 mIU/mL Radiology Impression Discussion of test interpretation with radiology: I have reviewed the radiologist's reading. Radiologist Impression: CLINICAL HISTORY: L mastoid tenderness, decreased tearing CT temporal bones without contrast Comparison: None Findings: Right temporal bone: The middle ear cavity ossicles are surrounded with inflammatory tissue which extends into the epi tympanum and petrous bone. The posterior tympanic tympanic membrane, and internal auditory canals are unremarkable. The scutum is sharp. There is erosion of the left facial nerve canal. There is erosion of the semicircular canals. Visualized paranasal sinuses and mastoid air cells are clear. Temporomandibular joints are intact. No acute fracture or dislocation. Left temporal bone: The middle ear ossicles are surrounded with soft tissue inflammatory soft tissue which extends into the epitympanum , hypotympanum and petrous bone. The tympanic membranes are unremarkable. There is erosion of the facial nerve canal There is erosion of semicircular canals with inflammatory soft tissue extending to the middle ear cavity, image 76 -77/289, series 2, and image 123/289, series 2. Scutum is sharp. Visualized paranasal sinuses and mastoid air cells are clear. Temporomandibular joints are intact. No acute fracture or dislocation. Impression: Left otitis media. Right otitis media. 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 You do have erosions of the facial nerve and semicircular canal bone around your ears. Take Augmentin 875/125, 1 pill every 12 hours for 14 days Take ibuprofen 400 mg pills, 1 pills every 6 hours as needed for pain or fever. Take Tylenol (acetaminophen) 500 mg pills, 2 pills every 6 hours as needed for pain or fever. I spoke to the [facility] ENT physician,Dr. Valenzuela. She made you an appointment in her office for 09:00 a.m. in [address] I gave her your contact phone number of CT scan had/mastoid Impression: Left otitis media. Right otitis media. 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 This document has been electronically signed by: Michael Ray MD on 01/31/2025 18:05:01 Prescriptions: New acetaminophen [Tylenol Extra Strength] 500 mg tablet 1,000 mg PO Q6H PRN (Reason: pain) Qty: 20 0RF ibuprofen 400 mg tablet 400 mg PO TID PRN (Reason: fever or pain) Qty: 30 0RF amoxicillin-pot clavulanate 875-125 mg tablet 1 tab PO Q12H 14 Days Qty: 28 0RF No Action ofloxacin 0.3 % drops 2 drp ophthalmic (eye) QID 5 Days Qty: 5 0RF cephalexin 500 mg capsule 500 mg PO QID 7 Days Qty: 28 0RF ibuprofen 400 mg tablet 400 mg PO Q6H PRN (Reason: fever or pain) 7 Days Qty: 28 0RF Print Language: Other
[2025-01-31 16:01] LABS: HCG Quantitative < 2 mIU/mL
[2025-01-31 19:18] VITALS: BP 109/65; PULSE 87; RESP 16; TEMP 37; O2SAT 98
[2025-01-31] MEDS: cefTRIAXone sodium 1 GM VIAL IVPUSH (20:27)
[2025-01-31] MEDS: Ketorolac Tromethamine 15 MG/ML VIAL 30 MG IVPUSH (20:27)
[2025-01-31] MEDS: Azithromycin 500 MG in 0.9 % Sodium Chloride 250 ML 125 MG IV (20:27)
[2025-01-31 22:51] VITALS: BP 106/71; PULSE 81; RESP 16; TEMP 36.6; O2SAT 99
== END 2025-01-31 22:52 | disposition home or self-care (01) ==
PROVIDERS: Physician Assistant Medical; Emergency Provider Emergency Medicine Emergency Medical Services
DX: H66.93 Otitis media, unspecified, bilateral (principal); R10.2 Pelvic and perineal pain; H92.03 Otalgia, bilateral; Z79.899 Other long term (current) drug therapy
CPT/HCPCS: 36415; 70481; 84702; 96374; 96375; 99284; J0456; J0696; J1885

== ENCOUNTER → 2025-01-31 15:18 | Outpatient (BNV) | payer MEDICAID, SELFPAY | PROVIDERS: Visit Provider Radiology Diagnostic Radiology | DX: H66.93 Otitis media, unspecified, bilateral (principal); G51.8 Other disorders of facial nerve; H83.8X3 Other specified diseases of inner ear, bilateral | CPT/HCPCS: 70481 ==

== ENCOUNTER 2025-02-08 16:12 | Emergency (ER) | payer MEDICAID, SELFPAY ==
[2025-02-08 17:16] VITALS: BP 115/73; PULSE 78; RESP 16; TEMP 36.7; O2SAT 98; BMI 20.4
--- NOTE | 2025-02-08 17:33 | ED.GENADULT ---
HPI - General Adult General Chief complaint: Vaginal Bleeding Stated complaint: Vaginal bleeding History of Present Illness HPI narrative: Seen by Dr. Brown. Related Data Previous Rx's ?Medication ?Instructions ?Recorded ofloxacin 0.3 % eye drops 2 drp ophthalmic (eye) QID 5 days 11/06/24 #5 mL cephalexin 500 mg capsule 500 mg PO QID 7 days #28 caps 11/28/24 ibuprofen 400 mg tablet 400 mg PO Q6H PRN fever or pain 7 11/28/24 days #28 tabs acetaminophen 500 mg tablet 1,000 mg (2 x 500 mg) PO Q6H PRN 01/31/25 (Tylenol Extra Strength) pain #20 tabs amoxicillin 875 mg-potassium 1 tab PO Q12H 14 days #28 tabs 01/31/25 clavulanate 125 mg tablet ibuprofen 400 mg tablet 400 mg PO TID PRN fever or pain 01/31/25 #30 tabs Allergies Allergy/AdvReac Type Severity Reaction Status Date / Time No Known Allergies Allergy Verified 02/08/25 23:14 [facility] Past Medical History Medical History COVID-19 Social History Social History Patient Tobacco Use Status: Never used Tobacco Smoked in Last 30 Days: No Use of substances other than those prescribed or required for medical reasons: No Advance Directives: No Do you have a plan to hurt others: No Plan Patient : No Physical Exam ED Vital Signs: Vital Signs - 24 hr 02/08/25 17:16 Temperature 98.1 F Pulse Rate 78 Respiratory Rate 16 Blood Pressure 115/73 Pulse Oximetry 98 Oxygen Delivery Method Room Air BMI result Body Mass Index 20.4 Course Course Course Narrative: RME: 39-year-old female presents to ED for abdominal pain and vaginal bleeding for the past 3 weeks. Patient states last menstruation was 2 weeks ago and now she is bleeding again. Patient states this happened before in the past. Labs ordered. Medical Decision Making Lab Data 02/08/25 17:40 02/08/25 17:40 Labs: Lab Results 02/08/25 Range/Units 17:40 WBC 6.8 (4.8-10.8) X10*3/uL RBC 4.21 (4.20-5.50) X10*6/uL Hgb 12.2 (12.0-16.0) g/dl Hct 36.2 L (37.0-47.0) % MCV 86.0 (80.0-98.0) fL MCH 29.0 (27.0-33.0) pg MCHC 33.7 (31.0-35.0) g/dl RDW 11.9 (11.0-16.0) % Plt Count 306 (160-400) X10*3/uL MPV 10.1 (9.4-12.3) fL Immature Gran % (Auto) 0.3 (0.0-0.4) % Neut % (Auto) 58.8 (45-73) % Lymph % (Auto) 31.8 (20-40) % [place] % (Auto) 6.6 (2-11) % Eos % (Auto) 1.8 (0-4) % Baso % (Auto) 0.7 (0-2) % Lymph # (Auto) 2.2 (1.2-4.9) X10*3/uL [place] # (Auto) 0.5 (0.1-1.2) X10*3/uL Eos # (Auto) 0.1 (0.0-0.4) X10*3/uL Baso # (Auto) 0.1 (0.0-0.2) X10*3/uL Abs Immat Gran (auto) 0.02 (0.00-0.03) X10*3/uL Absolute Neuts (auto) 4.0 (2.0-8.3) x10*3/uL Absolute Nucleated RBC 0.000 (0.0-0.012) X10*3/uL Nucleated RBC % (auto) 0.0 (0.0-0.2) /100WBC PT 11.6 (10.9-12.4) SEC INR 1.0 (0.9-1.1) APTT 31.6 (26.0-36.8) SEC Sodium 138 (135-145) mmol/L Potassium 4.3 (3.3-5.1) mmol/L Chloride 106 (96-108) mmol/L Carbon Dioxide 25 (22-29) mmol/L Anion Gap 11 L (12-20) BUN 19 H (9-16) mg/dL Creatinine 0.61 (0.5-1.4) mg/dL Estim Creat Clear Calc 102.9 Estimated GFR > 60 Random Glucose 95 (60-115) mg/dL Calcium 9.6 (8.4-10.2) mg/dL Total Bilirubin 0.3 (0.0-1.0) mg/dL AST 23 (5-31) U/L ALT 17 (0-31) U/L Alkaline Phosphatase 54 (39-117) U/L Total Protein 7.5 (6.5-8.0) g/dL Albumin 4.4 (3.5-5.0) g/dL Beta HCG, Quant < 2 mIU/mL Discharge Plan Discharge Clinical Impression: Dysfunctional uterine bleeding, Abnormal vaginal bleeding Patient Disposition: Home, Self-Care Prescriptions: No Action ofloxacin 0.3 % drops 2 drp ophthalmic (eye) QID 5 Days Qty: 5 0RF acetaminophen [Tylenol Extra Strength] 500 mg tablet 1,000 mg PO Q6H PRN (Reason: pain) Qty: 20 0RF ibuprofen 400 mg tablet 400 mg PO TID PRN (Reason: fever or pain) Qty: 30 0RF amoxicillin-pot clavulanate 875-125 mg tablet 1 tab PO Q12H 14 Days Qty: 28 0RF cephalexin 500 mg capsule 500 mg PO QID 7 Days Qty: 28 0RF ibuprofen 400 mg tablet 400 mg PO Q6H PRN (Reason: fever or pain) 7 Days Qty: 28 0RF Discharge Date/Time: 02/08/25 20:14 Print Language: Other
[2025-02-08 17:44] LABS: MANUAL DIFF FLAG NO
[2025-02-08 17:46] LABS: Basophils Absolute Auto 0.1 X10*3/uL (0.0-0.2); Basophils Percent Auto 0.7 % (0-2); Eosinophils Absolute Auto 0.1 X10*3/uL (0.0-0.4); Eosinophils Percent Auto 1.8 % (0-4); Hematocrit 36.2 % (37.0-47.0); Hemoglobin 12.2 g/dl (12.0-16.0); Imm Gran Abs Auto 0.02 X10*3/uL (0.00-0.03); Imm Gran Pct Auto 0.3 % (0.0-0.4); Lymphocytes Absolute Auto 2.2 X10*3/uL (1.2-4.9); Lymphocytes Percent Auto 31.8 % (20-40); Mean Corpuscular HGB Conc 33.7 g/dl (31.0-35.0); Mean Platelet Volume 10.1 fL (9.4-12.3); Monocytes Absolute Auto 0.5 X10*3/uL (0.1-1.2); Monocytes Percent Auto 6.6 % (2-11); Neutrophils Percent Auto 58.8 % (45-73); Platelet Count 306 X10*3/uL (160-400); Red Blood Count 4.21 X10*6/uL (4.20-5.50); Red Cell Distribution Width 11.9 % (11.0-16.0); White Blood Count 6.8 X10*3/uL (4.8-10.8)
[2025-02-08 17:55] LABS: Prothrombin Time 11.6 SEC (10.9-12.4)
[2025-02-08 17:57] LABS: Partial Thromboplastin Time 31.6 SEC (26.0-36.8)
[2025-02-08 18:17] LABS: Alanine Aminotransferase 17 U/L (0-31); Albumin Level 4.4 g/dL (3.5-5.0); Anion Gap 11 (12-20); Aspartate Amino Transferase 23 U/L (5-31); Bilirubin Total 0.3 mg/dL (0.0-1.0); Blood Urea Nitrogen 19 mg/dL (9-16); Calcium 9.6 mg/dL (8.4-10.2); Carbon Dioxide 25 mmol/L (22-29); Chloride 106 mmol/L (96-108); Creatinine Clr Calc Pharmacy 102.9; Estimated Glomerular Filt Rate > 60; Glucose Random 95 mg/dL (60-115); HCG Quantitative < 2 mIU/mL; Potassium 4.3 mmol/L (3.3-5.1); Sodium 138 mmol/L (135-145); Total Protein 7.5 g/dL (6.5-8.0)
--- OUTSIDE RECORDS SUMMARY | 2025-02-08 19:24 | XMS_ITS | Data Portability ---
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 Primary Care Provider Assessment Encounter Date Assessment Date Assessment LastModified by Organization Details LastModified Time 02/01/2025 02/01/2025 39-year-old female with longstanding recurrent ear infections and pain which have not always been treated, presents with worsening right-sided otalgia and hearing loss, not associated with dizziness, for which she was seen in the emergency department at [place] with CT showing otitis media with erosion of the bilateral facial nerve canals and semicircular canals. She was started on Augmentin. On exam today, she is well-appearing. There is no facial nerve weakness. She has TM perforations bilaterally, larger on the right, without any active drainage. There is some tenderness to palpation over the right mastoid without any underlying fluctuance or erythema with the pain extending into the neck. On review of the imaging, there was no erosion of the outer cortex of the mastoid. Audiometric testing showed a mixed loss bilaterally, worse on the right, with primarily conductive components. I recommended continuing the antibiotics. I sent in some otic topical drops with steroids in hopes this may provide some symptomatic relief. Will see her back in the short-term to ensure symptomatic improvement. I recmmended strict dry ear precautions. I suspect most of the CT findings are chronic given her history. In the long-term, recommend evaluation with Dr. Stuart. The perforations are likely physiologic. She will probably benefit from amplification whether with standard hearing aids or [place]. [email or web address] Not available 02/03/2025 16:52:54 Plan of Treatment Reminders Order Date Submit Date Provider Last Modified By Organization Details Last Modified Time Details Appointments Establish ed 15 2024 02:00P M DAISY YOUNGER PA-C Not available Not available Not available Otology Referral 2024 01:00P M PAKO STUART MD Not available Not available Not available Lab None recorded. Referral None recorded. Procedures None recorded. Surgeries None recorded. Imaging None recorded. Medication Orders TobraDex 0.3 %-0.1 % eye drops,woo pension 2024 025 [id number] [employer], [address] [place], [address], 02/01/2025 11:16:22 Patient TargetsNo targets recorded. Patient InstructionsNo instructions recorded. Reason for Referral None Reported. Results Created Date Observation Date Name Description Value Unit Range Abnormal Flag Note LastModifiedBy Organization Detail LastModifiedTime 02/02/2001/31/2025 CT, tempo ral bone, w/o contr ast No observ ation record ed. [facility] Radiology ([facility]) [address] [facility] [address], [place], [address], 02/02/2025 10:16:19 02/09/2001/31/2025 CT, tempo ral bone, w/o contr ast No observ ation record ed. [email or web address] Not Available 01/19 10:39:51 Result Notes None recorded. Problems Name Problem SNOMED Code Status Onset Date Resolution Date Notes Provider Name and Address Organization Details Recorded Time Marginal perforation of right tympanic membrane 5388822551336 109 Active 2024 PAYTON OVALLES MD [address] [address], [place], [address], [facility] - [facility] 5 11:14:41 Central perforation of left tympanic membrane 2217679995599 107 Active 2024 PAYTON OVALLES MD 100 [facility] [address], [place], [address], [facility] - [facility] 5 11:14:46 Central perforation of right tympanic membrane 5999669260965 101 Active 2024 PAYTON OVALLES MD 100 [facility] [address], [place], [address], [facility] 11:14:51 Mixed conductive and sensorineur al hearing loss, bilateral 659628107 Active 2024 ACACIA KAHN, AuD [address] [facility] [address], [place], [address], [facility] 11:36:16 Problem Notes None recorded. Procedures Surgical History Date Name Laterality Status Provider Name and Address Organization Details Recorded Time 02/02/20 25 Tympanometry (35884) completed ACACIA KAHN, [facility] [address] [facility],[address] [address], [place], [address], [facility] 02/01/2025 11:31:13 02/02/20 25 [employer] (99392) completed ACACIA KAHN [facility] [address] [facility],[address] [address], [place], [address], [facility] 02/01/2025 11:30:45 Imaging Results Imaging Date Name Status LastModified by Organiz ation Details LastModified Time 01/31/2025 CT, temporal bone, w/o contrast completed [facility] Radiology (Centralized) [address] [facility] [address], [place], [address], 02/02/2025 10:16:19 01/31/2025 CT, temporal bone, w/o contrast [facility] Information not available 02/08/2025 10:39:51 Procedure Notes None recorded. Medical Equipment None Reported. Medications Name Sig Start Date Stop Date Status Note LastModified by Organization Details LastModified Time ofloxacin 0.3 % eye drops PLACE THREE DROP IN THE RIGHT EYE FOUR TIMES DAILY FOR FIVE DAYS 02/01 completed Not Available Not Available Not Available acetaminophe n 500 mg tablet TAKE ONE TABLET BY MOUTH EVERY 6 HOURS NEEDED FOR PAIN active Not Available Not Available No t Available cephalexin 500 mg capsule TAKE ONE CAPSULE BY MOUTH FOUR TIMES DAILY 02/01 completed Not Available Not Available Not Available ibuprofen 400 mg tablet TAKE 1 TABLET BY MOUTH EVERY 6 HOURS NEEDED FOR FEVER OR PAIN active Not Available Not Available No t Available TobraDex 0.3 %-0.1 % eye drops,suspen jack 3 drops into each ear twice a day for 2 weeks 2024 active Not Available Not Available Not Avai lable Vitals Date Recorded Body height Body mass index (BMI) Body weight Provider Name and Address Organization Details Last Updated DateTime 02/01/2025 157.48 cm 20.1 kg/m2 60556.16 g Oly Melissa [place] - [facility] 02/01/2025 10:45:54 Social History None recorded. Functional Status None recorded. Mental Status None recorded. Family History Nothing Reported. Medical History No medical history recorded. Gynecological HistoryNo gynecological history recorded. Obstetrics History GPAL:G 0 P 0 0 0 0 Past Encounters Encounter ID Performer Location Encounter Start Date Encounter Closed Date Diagnosis/Indication Diagnosis SNOMED-CT Code Diagnosis ICD10 Code Diagnosis Note [id number] PAYTON OVALLES MD [facility] [address] [address] 02/01/2025 10:33:32 02/01/2025 12:10:44 Central perforation of left tympanic membrane 4562769904 896538 H72.02 Central pe rforation of right tympanic membrane 0588662895 835814 H72.01 Mixed cond uctive and sensorineural hearing loss, bilateral 547854296 H90.6 Audiologic al evaluation results:Ri ght ear:{{Norm al Normal through 2 kHz Mild M oderate Mo derately-s evere Emily re* Profou nd}} {{hearing hearing. s loping to a mild slopi ng to a moderate s loping to moderately severe slo ping to severe slo ping to profound f lat* high frequency low frequency mid frequency cookie bite phillips curve}} {{with sen sorineural hearing loss with condu ctive hearing loss with mixed hearing loss with mixed hearing loss.#}}Le ft ear:{{Norm al Normal through 2 kHz Mild M oderate Mo derately-s evere Emily re* Profou nd}} {{hearing hearing. s loping to a mild slopi ng to a moderate s loping to moderately severe slo ping to severe slo ping to profound f lat high frequency low frequency mid frequency cookie bite phillips curve risi ng to a moderate#} } {{with sen sorineural hearing loss with condu ctive hearing loss with mixed hearing loss with mixed hearing loss.#}} Tympanomet ry:Right Ear:{{Type A Type A with rounded peak Type A with double peak Type As Type As with rounded peak Type Ad Type C Type C, shallow & rounded peak Type B* Type B with large volume Cou ld not maintain a hermetic seal}}Left Ear:{{Type A Type A with rounded peak Type A with double peak Type As Type As with rounded peak Type Ad Type C Type C, shallow & rounded peak Type B* Type B with large volume Cou ld not maintain a hermetic seal}} Health Concerns Section Related Observation LastModified by Organization Detai ls LastModified Time None Recorded Concern Status LastModified by Organization Details LastModified Time None Recorded Advance Directives Directive None Recorded Payers Encounter Date Sequence Insurance Name Policy Number Policy Sanchez Covered Member ID Sanchez Member ID Guarantor Name 02/01/2025 1 [place] [facility] Ursula Alexandre [id number] Ursula Alexandre Notes Date Note Type Note Provider Name and Address Organization Details Recorded Time 02/01/2025 text/html 39-year-old dewey moreira presents today for ear painED last night in [place] with hearing loss and painShe had a CT of the temporal bone showing left otitis media, right otitis media with erosion of bilateral facial nerve canals and semicircular canals There is inflammatory tissue surrounding the middle ear ossicles extending to the epitympanum and petrous boneImaging reviewed through [facility] showing contracted mastoid bones bilaterally had some drainage from the bilateral ears, right is worse has had trouble with the ears for years, had multiple infections in [place] hearing poor at baseline has not been treated for the infections no ear surgeryhad infections in childhood tinnitus more on the rightdoes not remember how longno dizzinessno headaches still ear pain worse on the right PAYTON OVALLES MD [address] [place] [address],[address] [address], [place], [address], [place] - [facility] 02/03/2025 16:54:07 OBGyn Episode No OBEpisode recorded.
[2025-02-08 19:25] LABS: Alkaline Phosphatase 54 U/L (39-117)
== END 2025-02-08 20:14 | disposition home or self-care (01) ==
PROVIDERS: Physician Assistant; Emergency Provider Emergency Medicine
DX: N93.8 Other specified abnormal uterine and vaginal bleeding (principal); R10.2 Pelvic and perineal pain
CPT/HCPCS: 36415; 80053; 84702; 85025; 85610; 85730; 99281; 99283

== ENCOUNTER 2025-02-08 22:45 | Emergency (ER) | payer MEDICAID, SELFPAY ==
[2025-02-08 23:12] VITALS: BP 107/72; PULSE 81; RESP 16; TEMP 36.6; O2SAT 99; BMI 21.1
[2025-02-09 00:32] VITALS: BP 114/69; PULSE 78; RESP 16; TEMP 36.6; O2SAT 98
[2025-02-09 00:48] LABS: Appearance Urine Clear; Color Urine Yellow; Glucose Urine UA Negative (Negative); Leukocyte Esterase Urine Negative (Negative); Nitrite Urine Negative (Negative); PH 5.5 (5.0-9.0); Specific Gravity - Urine 1.025 (1.005-1.025); UMIC TRIGGER UACC YES; Urine Blood Trace (Negative); Urine Ketones Trace mg/dL (Negative); Urine Protein Negative (Neg-Trace)
[2025-02-09 00:53] LABS: Bacteria Urine None Seen (None Seen); Hyaline Casts Urine 0-2 /LPF (0-2); Squamous Epithelial Cell Urine 0-2 /HPF (0-2); WBC Urine 0-5 /HPF (0-5)
--- NOTE | 2025-02-09 01:57 | ED_ITS ---
HPI - Female Genitourinary General Chief complaint: Urogenital-Female Stated complaint: Vaginal bleeding Time Seen by Provider: 02/09/25 01:24 Source: patient and associate professor of chemistry (Faroese) Mode of arrival: ambulatory Limitations: no limitations History of Present Illness ED Provider: DR. Sandhu HPI Narrative: 39-year-old female who speak belarusian came in for evaluation of abnormal vaginal bleeding for the past 3 days, no CP, no SOB, no dizziness, stated that she change about 5 pads this morning, patient just moved to the [facility] from [place] used to take contraception injection every 3 months that she did not take it for the last 7 months. Patient has no doctor or OBGYN yet. Declined chance of being . Related Data Previous Rx's ?Medication ?Instructions ?Recorded ofloxacin 0.3 % eye drops 2 drp ophthalmic (eye) QID 5 days 11/06/24 #5 mL cephalexin 500 mg capsule 500 mg PO QID 7 days #28 caps 11/28/24 ibuprofen 400 mg tablet 400 mg PO Q6H PRN fever or pain 7 11/28/24 days #28 tabs acetaminophen 500 mg tablet 1,000 mg (2 x 500 mg) PO Q6H PRN 01/31/25 (Tylenol Extra Strength) pain #20 tabs amoxicillin 875 mg-potassium 1 tab PO Q12H 14 days #28 tabs 01/31/25 clavulanate 125 mg tablet ibuprofen 400 mg tablet 400 mg PO TID PRN fever or pain 01/31/25 #30 tabs Allergies Allergy/AdvReac Type Severity Reaction Status Date / Time No Known Allergies Allergy Verified 02/08/25 23:14 Review of Systems Review of Systems: All other systems are reviewed and are negative Constitutional: Reports as per HPI and Reports no additional constitutional complaints Eyes: Reports as per HPI and Reports no additional eye complaints Reports system reviewed and no additional complaints, except as documented Cardiovascular: Reports as per HPI and Reports no additional cardiovascular complaints Respiratory: Reports as per HPI and Reports no additional respiratory complaints Gastrointestinal: Reports as per HPI and Reports no additional gastrointestinal complaints Genitourinary: Reports no additional female genitourinary complaints Musculoskeletal: Reports no additional musculoskeletal complaints Skin/Breast: Reports system reviewed and no additional complaints, except as docu Psychiatric: Reports no additional psychiatric complaints Endocrine: Reports no additional endocrine complaints Hematologic/Lymphatic: Reports no additional hematologic/lymphatic complaints Allergic/Immunologic: Reports no additional allergic/immunologic complaints Reports system reviewed and no additional complaints, except as documented and Reports Abnormal speech present [facility] Past Medical History Medical History COVID-19 Social History Social History Patient Tobacco Use Status: Never used Tobacco Smoked in Last 30 Days: No Use of substances other than those prescribed or required for medical reasons: No Advance Directives: No Do you have a plan to hurt others: No Plan Patient : No Physical Exam Vital Signs: Vital Signs: Last Vital Signs Temp 97.9 F 02/09/25 00:32 Pulse 78 02/09/25 00:32 Resp 16 02/09/25 00:32 BP 114/69 02/09/25 00:32 Pulse Ox 98 02/09/25 00:32 O2 Del Method Room Air 02/09/25 00:32 BMI result Body Mass Index 21.1 Vital signs have been reviewed and appear to be correct. Blood pressure elevated. Heart rate normal. Respiratory rate normal. Temperature normal. Oxygen saturation normal. Appearance: Alert. Oriented X3. No acute distress. Head: Normal external exam. Normocephalic. Atraumatic. No Masterson signs noted. No raccoon eyes noted Eyes: PERRLA. EOMI. Conjunctiva and sclera normal. Eyelids normal. ENT: TM's Normal. Pharynx normal. Uvula midline. Moist mucous membranes. No trismus noted. No drooling noted. No muffled voice noted. Neck: Normal inspection. Neck supple. FROM. No adenopathy. Thyroid Normal. No meningeal signs. No neck mass noted. CVS: Normal heart rate and rhythm. Heart sound normal. No murmurs noted. Pulses normal throughout. Respiratory: No respiratory distress. Painless inspiration. Breath sounds norm al. No wheezes/rales/rhonchi noted. Chest nontender. No accessory muscle usage noted or decreased air movement noted. Abdomen: Soft and nontender. Bowel sounds normal in all 4 quadrants. No distenti on noted. No organomegaly noted. No visible injury noted. Pelvic exam: Patient declined pelvic exam and will follow-up with OBGYN. Back: No CVA tenderness. Full range of motion noted. Skin: Skin warm and dry. Normal skin color. Normal skin turgor. No rashes/lesions/lacerations noted. Extremities: No lower extremity edema. Extremities exhibit normal range of motion. Extremities nontender. Neuro: Oriented X 3. Cranial nerve exam: II-XII are grossly intact No motor deficit. No sensory deficit. Reflexes normal. Course Reevaluation(s) Reevaluation #1: Abnormal vaginal bleeding, hemodynamically, CBC is at baseline. Patient declined pelvic exam tonight hand will follow-up with Dr. Cruz. Faroese associate professor of chemistry was used throughout the evaluation made sure patient fully understand instruction. Time: 02:05 Medical Decision Making Differential Diagnosis Differential Diagnoses: The differential diagnosis associated with the presentation includes (, abnormal vaginal bleeding, severe anemia, hemodynamic instability) Admission/Observation Consideration of admission/observation: Escalation of care including adm ission/observation considered Lab Data MDM Lab Attestation statement: I reviewed the patient's lab results. Labs: Lab Results 02/09/25 Range/Units 00:40 Urine Color Yellow Urine Appearance Clear Urine pH 5.5 (5.0-9.0) Ur Specific [place] 1.025 (1.005-1.025) Urine Protein Negative (Neg-Trace) mg/dL Urine Glucose (UA) Negative (Negative) mg/dL Urine Ketones Trace (Negative) mg/dL Urine Blood Trace H (Negative) Urine Nitrite Negative (Negative) Ur Leukocyte Esterase Negative (Negative) Urine RBC 3-5 H (0-2) /HPF Urine WBC 0-5 (0-5) /HPF Ur Squamous Epith Cells 0-2 (0-2) /HPF Urine Bacteria None Seen (None Seen) Hyaline Casts 0-2 (0-2) /LPF Discharge Plan Discharge Clinical Impression: Abnormal vaginal bleeding Patient Disposition: Home, Self-Care Instructions: Menorrhagia (ED) Prescriptions: No Action ofloxacin 0.3 % drops 2 drp ophthalmic (eye) QID 5 Days Qty: 5 0RF acetaminophen [Tylenol Extra Strength] 500 mg tablet 1,000 mg PO Q6H PRN (Reason: pain) Qty: 20 0RF ibuprofen 400 mg tablet 400 mg PO TID PRN (Reason: fever or pain) Qty: 30 0RF amoxicillin-pot clavulanate 875-125 mg tablet 1 tab PO Q12H 14 Days Qty: 28 0RF cephalexin 500 mg capsule 500 mg PO QID 7 Days Qty: 28 0RF ibuprofen 400 mg tablet 400 mg PO Q6H PRN (Reason: fever or pain) 7 Days Qty: 28 0RF Referrals: Felipe Cruz MD [Physician] - Print Language: Other
[2025-02-09 02:20] VITALS: BP 116/79; PULSE 78; RESP 16; TEMP 36.4; O2SAT 98
== END 2025-02-09 02:22 | disposition home or self-care (01) ==
PROVIDERS: Emergency Provider Emergency Medicine
DX: N93.9 Abnormal uterine and vaginal bleeding, unspecified (principal)
CPT/HCPCS: 81001; 99283; 99284

== ENCOUNTER 2025-02-16 17:11 | Emergency (ER) | payer MEDICAID, SELFPAY ==
--- NOTE | ~2025-02-16 | XR_ITS ---
CLINICAL HISTORY: fall right ankle pain swelling Radiographs of the right ankle, 3 views Comparison: None Findings: There is no fracture or dislocation. The ankle mortise is congruent. The joint spaces are preserved without osteophytosis. Bone mineralization is normal. Soft tissue swelling. Impression: No fracture. This document has been electronically signed by: Bee Woodruff MD on 02/16/2025 18:28:22
--- NOTE | ~2025-02-16 | XR_ITS ---
CLINICAL HISTORY: fall right knee pain Radiographs of the right knee, 4 views Comparison: None Findings: There is no fracture or dislocation. No joint space narrowing or osteophytosis. Bone mineralization is normal. No knee joint effusion. Soft tissue swelling. Impression: No fracture or joint effusion. This document has been electronically signed by: Bee Woodruff MD on 02/16/2025 18:27:25
--- NOTE | ~2025-02-16 | XR_ITS ---
CLINICAL HISTORY: fall right foot pain swelling Radiographs of the right foot, 3 views Comparison: None Findings: No fracture or dislocation. The joint spaces are preserved without osteophytosis. Bone mineralization is normal. Soft tissue swelling. Impression: No fracture. This document has been electronically signed by: Bee Woodruff MD on 02/16/2025 18:27:05
[2025-02-16 17:20] VITALS: BP 107/69; PULSE 73; RESP 16; TEMP 36.3; O2SAT 99; BMI 21.5
--- NOTE | 2025-02-16 17:24 | ED.LOWEXIN ---
HPI - Extremity Injury (Lower) General Chief Complaint: Extremity Injury, Lower Stated Complaint: Right foot pain (Fall) Time Seen by Provider: 02/16/25 17:51 Source: patient Mode of arrival: wheelchair Limitations: no limitations History of Present Illness ED Provider: Dr. 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 Patient only speaks Jenni. According to the patient, yesterday patient states that she was feeling a bit weak which she usually does when she does not eat the whole day. Patient states that when she was walking down the stairs, patient missed a step and fell down the stairs. Patient states that she injured her right ankle and has been unable to bear weight since then. According to the patient she did not have any other injuries. She did not hit her head and did not lose consciousness. Patient denies any chest pain or shortness of breath. Related Data Previous Rx's ?Medication ?Instructions ?Recorded ofloxacin 0.3 % eye drops 2 drp ophthalmic (eye) QID 5 days 11/06/24 #5 mL cephalexin 500 mg capsule 500 mg PO QID 7 days #28 caps 11/28/24 ibuprofen 400 mg tablet 400 mg PO Q6H PRN fever or pain 7 11/28/24 days #28 tabs acetaminophen 500 mg tablet 1,000 mg (2 x 500 mg) PO Q6H PRN 01/31/25 (Tylenol Extra Strength) pain #20 tabs amoxicillin 875 mg-potassium 1 tab PO Q12H 14 days #28 tabs 01/31/25 clavulanate 125 mg tablet ibuprofen 400 mg tablet 400 mg PO TID PRN fever or pain 01/31/25 #30 tabs acetaminophen 500 mg tablet 500 mg PO Q6H PRN fever or pain 02/16/25 #20 tabs ibuprofen 600 mg tablet 600 mg PO TID PRN pain #14 tabs 02/16/25 Allergies Allergy/AdvReac Type Severity Reaction Status Date / Time No Known Allergies Allergy Verified 02/16/25 17:21 Review of Systems Review of Systems: Constitutional : No Weight loss, No Fever, No Chills, No Night Sweats, No Fatigue, No Malaise ENT/Mouth : No Hearing loss, No Ear Pain, No Nasal Congestion, No Sinus Pain, No Hoarseness, No sore throat, No Rhinorrhea, No Swallowing Difficulty Eyes: No Eye Pain, No Swelling, No Redness, No Foreign Body, No Discharge, No Vision Changes Cardiovascular : No Chest Pain, No SOB, No Dyspnea on Exertion, No Orthopnea, No Edema, No Palpitations Respiratory : No Cough, No Sputum, No Wheezing, No Smoke Exposure, No Dyspnea Gastrointestinal : No Nausea, No Vomiting, No Diarrhea, No Constipation, No abdominal Pain, No Hematochezia, No Melena Genitourinary : no irregular bleeding, No Dysuria, No Urinary Frequency, No Hematuria, No Urinary Incontinence, No Urgency, No Flank Pain, No Urinary Flow Changes, No Hesitancy Musculoskeletal : Complaining of right ankle pain No Myalgias, No Joint Swelling Skin : No Skin Lesions, No rash Neuro : No Weakness, No Numbness, No Paresthesias, No Loss of Consciousness, No Dizziness, No Headache Psych : No Anxiety/Panic, No Depression, No SI/HI/AH/VH, No Social Issues, Heme/Lymph: No Bruising, No Bleeding,No Lymphadenopathy Endocrine : No Polyuria, No Polydipsia, No Temperature Intolerance [facility] Past Medical History Medical History COVID-19 Social History Social History Patient Tobacco Use Status: Never used Tobacco Advance Directives: No Advance Directives Information Provided: Yes Physical Exam Vital Signs: Vital Signs: Last Vital Signs Temp 97.4 F 02/16/25 17:20 Pulse 86 02/16/25 18:58 Resp 16 02/16/25 17:20 BP 122/72 02/16/25 18:58 Pulse Ox 99 02/16/25 17:20 O2 Del Method Room Air 02/16/25 17:20 BMI result Body Mass Index 21.5 Const: Other: Appearance: Alert. Oriented X3. No acute distress. Eyes: Pupils equal, round and reactive to light. ENT: Pharynx normal. Neck: Normal inspection. Neck supple. No lymph nodes noted. No crepitus CVS: Normal heart rate and rhythm. Pulses normal. Normal S1 and S2 Respiratory: No respiratory distress. Breath sounds normal. No Wheezing. No rales Abdomen: Soft and nontender. No rigidity. No distention. Skin: Skin warm and dry. Normal skin color. Normal skin turgor. Extremities: Pain to palpation over the lateral malleolus of the right foot, patient unable to bear weight, minimal swelling over the malleolus, little ecchymosis Neuro: Oriented X 3. No motor deficit. No sensory deficit. Moving all extremities. No slurred speech. CN 2 through 12 grossly intact Psych: calm, cooperative, normal affect Course Course Course Narrative: This is a Rapid Medical Examination (RME) performed by Bela Fernandes PA-C in triage. Full HPI, ROS, assessment and treatment plan per primary provider in the Main ED. 02/16/25 1725 JADIEL Miles Hx: 39 yo jenni speaking female here for eval of right ankle/foot/knee and low back pain s/p fall down 13 stairs last night. Patient states that she was descending the stairs in her home when her vision went black causing her to fall down the stairs. She denies head strike or LOC. Reports pain to her right lower extremity and low back. No thinners. Patient states she had blood work done yesterday. States her blood pressure may have been affected causing her to fall. PE/vitals: Tender to palpation over right ankle and right knee. Ambulating with limping gait. Neurovascularly intact distally. Tender to palpation of midline lumbar spine without palpable step-off deformity Plan: Labs, ortho vitals, EKG, imaging Medical Decision Making Medical Decision Making [facility] Narrative: My interpretation of labs: No significant abnormality in patient's hematology and chemistry, hCG negative, troponin negative EKG: Sinus rhythm, heart rate 72, no ST segment depression or elevation, no T-wave inversion, QTC 422 X-rays negative for fracture I discussed the above findings with the patient, patient will follow-up with orthopedics if she does not improve within a week. Patient was giving a dose of IM ketorolac Patient was provided with crutches and taught how to use them Differential Diagnosis Differential Diagnoses: The differential diagnosis associated with the presentation includes (Ankle fracture, contusion, dislocation, sprain) Lab Data [facility] Lab Attestation statement: I reviewed the patient's lab results. 02/16/25 18:04 02/16/25 18:04 Labs: Lab Results 02/16/25 Range/Units 18:04 WBC 8.4 (4.8-10.8) X10*3/uL RBC 3.96 L (4.20-5.50) X10*6/uL Hgb 11.4 L (12.0-16.0) g/dl Hct 34.1 L (37.0-47.0) % MCV 86.1 (80.0-98.0) fL MCH 28.8 (27.0-33.0) pg MCHC 33.4 (31.0-35.0) g/dl RDW 11.7 (11.0-16.0) % Plt Count 306 (160-400) X10*3/uL MPV 10.2 (9.4-12.3) fL Immature Gran % (Auto) 0.2 (0.0-0.4) % Neut % (Auto) 60.4 (45-73) % Lymph % (Auto) 31.3 (20-40) % [place] % (Auto) 6.1 (2-11) % Eos % (Auto) 1.4 (0-4) % Baso % (Auto) 0.6 (0-2) % Lymph # (Auto) 2.6 (1.2-4.9) X10*3/uL [place] # (Auto) 0.5 (0.1-1.2) X10*3/uL Eos # (Auto) 0.1 (0.0-0.4) X10*3/uL Baso # (Auto) 0.1 (0.0-0.2) X10*3/uL Abs Immat Gran (auto) 0.02 (0.00-0.03) X10*3/uL Absolute Neuts (auto) 5.0 (2.0-8.3) x10*3/uL Absolute Nucleated RBC 0.000 (0.0-0.012) X10*3/uL Nucleated RBC % (auto) 0.0 (0.0-0.2) /100WBC Sodium 140 (135-145) mmol/L Potassium 4.5 (3.3-5.1) mmol/L Chloride 109 H (96-108) mmol/L Carbon Dioxide 24 (22-29) mmol/L Anion Gap 12 (12-20) BUN 26 H (9-16) mg/dL Creatinine 0.60 (0.5-1.4) mg/dL Estim Creat Clear Calc 91.3 Estimated GFR > 60 Random Glucose 90 (60-115) mg/dL Calcium 9.4 (8.4-10.2) mg/dL Magnesium 2.0 (1.6-2.6) mg/dL Total Bilirubin 0.2 (0.0-1.0) mg/dL AST 29 (5-31) U/L ALT 23 (0-31) U/L Alkaline Phosphatase 51 (39-117) U/L Troponin I High Sens < 2.7 (<3.5-17.0) ng/L Total Protein 7.1 (6.5-8.0) g/dL Albumin 4.3 (3.5-5.0) g/dL Beta HCG, Quant < 2 mIU/mL Independent Interpretation I performed an independent interpretation of an: Plain X-Ray Radiology Impression Discussion of test interpretation with radiology: I have reviewed the radiologist's reading. Radiologist Impression: There is no fracture or dislocation. The ankle mortise is congruent. The joint spaces are preserved without osteophytosis. Bone mineralization is normal. Soft tissue swelling. There is no fracture or dislocation. No joint space narrowing or osteophytosis. Bone mineralization is normal. No knee joint effusion. Soft tissue swelling. No fracture or dislocation. The joint spaces are preserved without osteophytosis. Bone mineralization is normal. Soft tissue swelling. Discharge Plan Discharge Clinical Impression: Ankle sprain and strain Patient Disposition: Home, Self-Care Instructions: Ankle Sprain (ED) Additional Instructions: Please follow-up with your primary care physician tomorrow. If you have any worsening or new symptoms, please return to the emergency room or call 911 Prescriptions: New ibuprofen 600 mg tablet 600 mg PO TID PRN (Reason: pain) Qty: 14 0RF acetaminophen 500 mg tablet 500 mg PO Q6H PRN (Reason: fever or pain) Qty: 20 0RF No Action ofloxacin 0.3 % drops 2 drp ophthalmic (eye) QID 5 Days Qty: 5 0RF acetaminophen [Tylenol Extra Strength] 500 mg tablet 1,000 mg PO Q6H PRN (Reason: pain) Qty: 20 0RF ibuprofen 400 mg tablet 400 mg PO TID PRN (Reason: fever or pain) Qty: 30 0RF amoxicillin-pot clavulanate 875-125 mg tablet 1 tab PO Q12H 14 Days Qty: 28 0RF cephalexin 500 mg capsule 500 mg PO QID 7 Days Qty: 28 0RF ibuprofen 400 mg tablet 400 mg PO Q6H PRN (Reason: fever or pain) 7 Days Qty: 28 0RF Referrals: Junie Munoz PA-C [Physician Shirt Finisher] - 1 week Print Language: Other
--- NOTE | 2025-02-16 17:39 | ECG_ITS ---
Test Reason : DIZZNESS Blood Pressure : */* mmHG Vent. Rate : 72 BPM Atrial Rate : 72 BPM P-R Int : 152 ms QRS Dur : 76 ms QT Int : 386 ms P-R-T Axes : 64 81 63 degrees QTcB Int : 422 ms Normal sinus rhythm with sinus arrhythmia Normal ECG When compared with ECG of 28-Nov-2024 12:25, No significant change was found Referred By: Enid Fernandes Electronically Signed By: Hayes Herrera
[2025-02-16 18:09] LABS: MANUAL DIFF FLAG NO
--- OUTSIDE RECORDS SUMMARY | 2025-02-16 18:09 | XMS_ITS | Data Portability ---
Author Organization [place] - [facility], Allergy Address [address] [address] Care Team Providers Care Dough Catcher Name Role Phone [facility] Primary Care Provider Assessment Encounter Date Assessment Date Assessment LastModified by Organization Details LastModified Time 02/01/2025 02/01/2025 39-year-old female with longstanding recurrent ear infections and pain which have not always been treated, presents with worsening right-sided otalgia and hearing loss, not associated with dizziness, for which she was seen in the emergency department at [place] with CT showing otitis media with erosion [...] eye drops,woo pension 2024 025 [id number] [employer], [address] [place], [address], 02/01/2025 11:16:22 Patient TargetsNo targets recorded. Patient InstructionsNo instructions recorded. Reason for Referral None Reported. Results Created Date Observation Date Name Description Value Unit Range Abnormal Flag Note LastModifiedBy Organization Detail LastModifiedTime 02/02/2001/31/2025 CT, tempo ral bone, w/o contr ast No observ ation record ed. [facility] ([facility]) [address] [facility] [address], [place], [address], 02/02/2025 10:16:19 02/09/2001/31/2025 CT, tempo ral bone, w/o contr ast No observ ation record ed. [email or web address] Not Available 01/19 10:39:51 Result Notes None recorded. Problems Name Problem SNOMED Code Status Onset Date Resolution Date Notes Provider Name and Address Organization Details Recorded Time Marginal perforation of right tympanic membrane 9764512006968 109 Active 2024 PAYTON OVALLES MD [address] [address], [place], [address], [facility] - [facility] 5 11:14:41 Central perforation of left tympanic membrane 4996505751885 107 Active 2024 PAYTON OVALLES MD [address] [facility] [address], [facility] [place], [address], [facility] - [facility] 5 11:14:46 Central perforation of right tympanic membrane 1999773020355 101 Active 2024 PAYTON OVALLES MD [address] [facility] [address], [place], [address], [facility] 11:14:51 Mixed conductive and sensorineur al hearing loss, bilateral 243671028 Active 2024 ACACIA KAHN, AuD [address] [facility] [address], [place], [address], [facility] 11:36:16 Problem Notes None recorded. Procedures Surgical History Date Name Laterality Status Provider Name and Address Organization Details Recorded Time 02/02/20 25 Tympanometry (03230) completed ACACIA KAHN, [facility] [address] [facility],[address] [address], [place], [address], [facility] 02/01/2025 11:31:13 02/02/20 [employer] (70544) completed ACACIA KAHN [facility] [address] [facility],[address] [address], [place], [address], [facility] 02/01/2025 11:30:45 Imaging Results Imaging Date Name Status LastModified by Organiz ation Details LastModified Time 01/31/2025 CT, temporal bone, w/o contrast completed [facility] ([facility]) [address] [facility] [address], [place], [address], 02/02/2025 10:16:19 01/31/2025 CT, [facility], w/[facility] Information not available 02/08/2025 10:39:51 Procedure Notes [...] ibuprofen 400 mg tablet TAKE 1 TABLET ORALLY 3 TIMES A DAY NEEDED FOR FEVER OR PAIN active Not Available Not Available No t Available amoxicillin 875 mg-potassium clavulanate 125 mg tablet TAKE 1 TABLET BY MOUTH EVERY 12 HOURS FOR 14 DAYS active Not Available Not Available No t Available tobramycin 0.3 %-dexamethas one 0.1 % eye drops,suspen jack INSTILL 3 DROPS INTO EACH EAR TWICE A DAY FOR 2 WEEKS active Not Available Not Available No t Available Vitals Date Recorded Body height Body mass index (BMI) Body weight Provider Name and Address Organization Details Last Updated DateTime 02/01/2025 157.48 cm 20.1 kg/m2 01976.16 g Oly Melissa [place] - [facility] 02/01/2025 10:45:54 Social History None recorded. Functional Status None recorded. Mental Status None recorded. Family History Nothing Reported. Medical History No medical history recorded. Gynecological HistoryNo gynecological history recorded. Obstetrics History GPAL:G 0 P 0 0 0 0 Past Encounters Encounter ID Performer Location Encounter Start Date Encounter Closed Date Diagnosis/Indication Diagnosis SNOMED-CT Code Diagnosis ICD10 Code Diagnosis Note [id number] PAYTON OVALLES MD [facility] on [address] [place] [address] 02/01/2025 10:33:32 02/01/2025 12:10:44 Central perforation of left tympanic membrane 4173293246 330718 H72.02 Central pe rforation of right tympanic membrane 4554407463 621397 H72.01 Mixed cond uctive and sensorineural hearing loss, bilateral 246528824 H90.6 Audiologic al evaluation results:Ri ght ear:{{Norm [...] Sanchez Member ID Guarantor Name 02/01/2025 1 [place]: [facility] Ursula Alexandre [id number] Ursula Alexandre Notes Date Note Type Note Provider Name and Address Organization Details Recorded Time 02/01/2025 text/html 39-year-old dewey moreira presents today for ear painED last night in [place] with hearing loss and painShe had a [...] worse on the right PAYTON OVALLES MD [address] [place] [address],[address] [address], [place], [address], [place] - [facility] 02/03/2025 16:54:07 OBGyn Episode No OBEpisode recorded.
--- OUTSIDE RECORDS SUMMARY | 2025-02-16 18:09 | XMS_ITS | Encounter Summary ---
Author Organization [facility] Address [address] [place] [address] Care Team Providers Care Porcelain Technician Name Role Phone Kaylin Thayer Primary Care Provider [phone] Reason for Referral * Gynecology (Routine) - Authorized Specialty Diagnoses / Procedures Referred By Angle sanderson Referred To Contact Obstetrics & Gynecology / Family Practice Diagnoses Irregular menstrual bleeding Kaylin Thayer FNP-C [address] [place] [address] Phone: tel: fax: [facility] [address] [place] [phone] Phone: tel: fax: Referral ID Status Reason Start Date Expiration Date Visits Requested Visits Authorized [id number] Authorized Continuity of Care 02/15/2025 02/15/2026 1 1 Comments Reason for Referral: CONTRACEPTION: N/A COUNSELING/TESTING: N/A EVALUATION/TREATMENT: Pap Smear/Cervical Cancer Screening, Menstrual Pain/Irregularity, and Abnormal Bleeding Comments/Additional Information: Irregular bleeding - also due for PAP smear Reason for Visit * Reason Comments Complete Physical Exam Encounter Details Date Type Department Care Team (Latest Contact Info) Description 02/15/2025 3:00 PM EDT Office Visit [facility] [address] [place] [phone] Kaylin Thayer FNP-C [address] [place] [phone] Routine general medical examination at a health care facility (Primary Dx); Irregular menstrual bleeding; Dysuria; Encounter for Depo-Provera contraception Social History Tobacco Use Types Packs/Day Years [...] Sign Reading Time Taken Comments Blood Pressure 106/70 02/15/2025 2:32 PM EDT Pulse 76 02/15/2025 2:32 PM EDT Temperature 36.7 ??C (98.1 ??F) 02/15/2025 2:32 PM ED T Respiratory Rate 16 02/15/2025 2:32 PM EDT Oxygen Saturation - - Inhaled Oxygen Concentration - - Weight 50.8 kg (112 lb) 02/15/2025 2:32 PM EDT Height 152.4 cm (5') 02/15/2025 2:32 PM EDT Body Mass Index 21.87 02/15/2025 2:32 PM EDT documented in this encounter Progress Notes * Ondina Kelley RN - 02/15/2025 3:01 PM EDT Buy and bill stock used. [facility]: [id number] Lot: [id number] EXP: 10/19/2027 * Kaylin Thayer, TEST SPECIALIST-C - 02/15/2025 2:36 PM EDT SUBJECTIVE Interpreting services provided by Harry nitrator operator interpreted for today's visit. via telephone. HPI: Ursula Alexandre is a 39 year old female who presents to clinic today for annual physical. Reports abnormal menstrual bleeding- reports heavy bleeding. Reports in the last 2 month, had 3 periods. Each episode lasted 10 days. She reports bleeding was heavy the whole episode., with pelvic cramping She went to ER for this concern- she was neg for hcg and UA. She reports being on depo about 7 months ago Reports concern for urinary infection- reports this occurs every time when she starts her period Reports vaginal burning symptoms, no urgency or frequency. Health Maintenance: Patient's last menstrual period was 02/11/2025 (approximate). 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 Not hospitalized. Class B; abnormal Chest Xray; there are reticular and nodular opacities in both upper lobes, associated with upward traction of both hilia per refugee paperwork. Past Medical History: Diagnosis Date Hepatitis B immune 07/02/2024 Per serology Hx of tuberculosis 15 years ago positive for TB and took meds. Not hospitalized. Positive QuantiFERON-TB Gold test 07/02/2024 No past surgical history on file. Social Documentation as of 02/15/2025 None Social History Tobacco Use Smoking status: Never Passive exposure: Never Smokeless tobacco: Never Vaping Use Vaping status: Never Used Substance Use Topics Alcohol use: Never Drug use: Never Family History Problem Relation Name Age of Onset No Known Problems Mother Other (See Comments) Father killed in war Current Outpatient Medications Medication Sig Dispense Refill medroxyPROGESTERone (DEPO-PROVERA) 150 mg/mL syringe Inject 1 mL into the muscle every 3 (three) months 1 mL 3 acetaminophen (TYLENOL) 500 mg tablet Take 1 Tablet by mouth every 6 (six) hours as needed for pain30 Tablet 1 Current Facility-Administered Medications Medication Dose Route Frequency Provider Last Rate Last Admin medroxyPROGESTERone (Depo-Provera) injection syringe 150 mg 150 mg intramuscular Every 3 months Kaylin Thayer TEST SPECIALIST-C 150 mg at 02/15/25 1500 No Known Allergies Depression screen: PHQ-9 Total Score (Auto Calculated) 0 at 11/19/2024 2:30 PM 11/19/2024 2:30 PM How many times in the past year have you had 4 or more drinks in a day? NONE How many times in the past year have you used a recreational drug or used a prescription medicationfor nonmedical reasons? NONE Did patient decline PHQ screening? No Little interest or pleasure in doing things Not at all Feeling down, depressed or hopeless [include irritable if under 18] Not at all PHQ2 Score 0 Little interest or pleasure in doing things Not at all Feeling down, depressed or hopeless [include irritable if under 18] Not at all Trouble falling or staying asleep, or sleeping too much Not at all Feeling tired or having little energy Not at all Poor appetite or overeating Not at all Feeling bad about yourself - or that you are a failure or have let yourself or your family down Notat all Trouble concentrating on things, such as reading the newspaper or watching television? Not at all Moving or speaking so slowly that other people could have noticed? Or the opposite - being so fidgety or restless that you have been moving around a lot more than usual Not at all Thoughts you would be better off or of hurting yourself in some way Not at all If you checked off any problems, how difficult have these problems made it for you to do your work,take care of things at home, or get along with other people? Not difficult at all PHQ-9 Total Score (Auto Calculated) 0 Depression Severity: None-minimal Review of Systems: Remainder ROS: See HPI, systems reviewed and are otherwise negative or noncontributory. OBJECTIVE Vitals: BP 106/70 (Right Arm, Sitting, Regular Adult) Pulse 76 Temp 98.1 ??F (36.7 ??C) Resp 16 Ht 5' (1.524 m) Wt 112 lb (50.8 kg) LMP 02/11/2025 (Approximate) BMI 21.87 kg/m?? OB Status Having periods Smoking Status Never BSA 1.47 m?? Physical Exam: Vitals reviewed Physical Exam Constitutional: General: She is not in acute distress. Cardiovascular: Rate and Rhythm: Normal rate and regular rhythm. Pulses: Normal pulses. Heart sounds: Normal heart sounds. Pulmonary: Effort: Pulmonary effort is normal. Breath sounds: Normal breath sounds. Abdominal: General: Bowel sounds are normal. Palpations: Abdomen is soft. Musculoskeletal: General: Normal range of motion. Urinalysis: Lab Results Component Value Date URLEUK NEGATIVE 02/15/2025 URNITRITE NEGATIVE 02/15/2025 URPROT 30 (1+) (A) 02/15/2025 URBLOOD TRACE HEMOLYZED (A) 02/15/2025 URSPECGRAV 1.030 (A) 02/15/2025 URKETONES NEGATIVE 02/15/2025 URBILI NEGATIVE 02/15/2025 URGLUC NEGATIVE 02/15/2025 URCOLOR YELLOW 02/15/2025 Labs/Screenings: The ASCVD Risk score (Janna DK, et al., 2019) failed to calculate for the following reasons: The 2019 ASCVD risk score is only valid for ages 40 to 79 Lab Results Component Value Date HGB 13.4 06/23/2024 HCT 41.2 06/23/2024 No results found for: HGBA1C No results found for: TRIGLYC , CHOL , HDL , LDL , LDLHDL , CHOLHDL , VLDL , NONHDL No results found for: CREATININE , CREATININECL , EGFR ASSESSMENT/PLAN: Ursula Alexandre was seen today for complete physical exam. #1 Routine general medical examination at a health care facility (Primary) - BLOOD COUNT COMPLETE AUTO&AUTO DIFRNTL WBC - COMPREHENSIVE METABOLIC PANEL - THYROID CASCADING REFLEX PANEL - LIPID PANEL - HEMOGLOBIN GLYCOSYLATED A1C #2 Irregular menstrual bleeding - REF TO - FAMILY PLANNING - US PELVIC COMPLETE & TRANSVAG - medroxyPROGESTERone (DEPO-PROVERA) 150 mg/mL syringe; Inject 1 mL into the muscle every 3 (three)months Dispense: 1 mL; Refill: 3 - medroxyPROGESTERone (Depo-Provera) injection syringe 150 mg #3 Dysuria - URINALYSIS, MULTISTIX (POCT) - SURESWAB ADVANCED VAGINITIS PLUS, TMA #4 Encounter for Depo-Provera contraception - medroxyPROGESTERone (DEPO-PROVERA) 150 mg/mL syringe; Inject 1 mL into the muscle every 3 (three)months Dispense: 1 mL; Refill: 3 - medroxyPROGESTERone (Depo-Provera) injection syringe 150 mg - HCG URINE MCKESSON (POCT) The following were addressed in today's visit: Depression screening:DEPRESSION FU PROVIDED (MU CMS-2): Counseling / education in visit Weight management:BMI follow up plan: The patient was counseled regarding nutrition and physical activity. Tobacco Intervention:provided smoking cessation counseling Counselled for healthy lifestyle, Dietary habits, Physical activity and regular exercise. Discussed Medication adherence, safe sex, safe driving. Patient understands and agrees with plan. Encouraged to follow up with any questions or concerns. Return in about 6 months (around 08/17/2025) for follow up. documented in this encounter Miscellaneous Notes * Patient Instructions - GALE Calabrese - 02/15/2025 3:27 PM EDT If you are not able to keep your appointment please call 24-48 hours before your appointment to cancel or reschedule. documented in this encounter Plan of Treatment Upcoming Encounters Date Type Department Care Team (Late st Contact Info) Description 05/11/2025 2:20 PM EDT Office Visit [address] [phone] Scheduled Orders Name Type Priority Associated Diagnoses Orde r Schedule US PELVIC COMPLETE & TRANSVAG Imaging Routine Irregular menstrual bleeding Ordered: 02/15/2025 SURESWAB ADVANCED VAGINITIS PLUS, TMA Lab Routine Dysuria Ordered: 02/15/2025 Scheduled Referrals Name Type Priority Associated Diagnoses Orde r Schedule REF TO - FAMILY PLANNING Referral Routine Irregular menstrual bleeding Ordered: 02/15/2025 documented as of this encounter Procedures Procedure Name Priority Date/Time Associated Diagnosis Comments THYROID CASCADING REFLEX PANEL Routine 02/15/2025 3:22 PM EDT Routine general medical examination at a health care facility BLOOD COUNT COMPLETE AUTO&AUTO DIFRNTL WBC Routine 02/15/2025 3:22 PM EDT Routine general medical examination at a [facility] care facility HEMOGLOBIN GLYCOSYLATED A1C Routine 02/15/2025 3:22 PM EDT Routine general medical examination at a [facility] care facility LIPID PANEL Routine 02/15/2025 3:22 PM EDT Routine general medical examination at a [facility] care facility COMPREHENSIVE METABOLIC PANEL Routine 02/15/2025 3:22 PM EDT Routine general medical examination at a [facility] care facility HCG URINE MCKESSON (POCT) Routine 02/15/2025 3:12 PM EDT Encounter for Depo-Provera contraception URINALYSIS, MULTISTIX (POCT) Routine 02/15/2025 3:11 PM EDT Dysuria documented in this encounter Results * HEMOGLOBIN GLYCOSYLATED A1C (02/15/2025 3:22 PM EDT) HEMOGLOBIN A1C 5.2 <5.7 % [email or web address] Comment: For the purpose of screening for the presence of diabetes: <5.7% ? Consistent with the absence of diabetes 5.7-6.4% ?Consistent with increased risk for diabetes ?(prediabetes) > or =6.5% ??Consistent with diabetes This assay result is consistent with a decreased risk of diabetes. Currently, no consensus exists regarding use of hemoglobin A1c for diagnosis of diabetes in children. According to [place] [employer] (ADA) guidelines, hemoglobin A1c <7.0% represents optimal control in non- diabetic patients. Different metrics may apply to specific patient populations. Standards of Medical Care in Diabetes(ADA). ?? Blood Blood / Unknown 02/15/2025 3 :22 PM EDT 02/15/2025 3:22 PM EDT Narrative [employer] [facility] - 02/16/2025 5:14 PM EDT FASTING:UNKNOWN Kaylin Thayer TEST SPECIALIST-C LAB - BLOOD DRAW Final Re sult [facility] [address] [address], [facility] [address] [phone] * (ABNORMAL) LIPID PANEL (02/15/2025 3:22 PM EDT) [facility] CHOLESTEROL, TOTAL 170 <200 mg/dL [facility] HDL CHOLESTEROL 47(L) > OR = 50 mg/dL [facility] TRIGLYCERIDES 65 <150 mg/dL [facility] LDL-CHOLESTEROL 108(H) 99 mg/dL (calc) [facility] Comment: Reference range: <100 Desirable range <100 mg/dL for primary prevention; ?? <70 mg/dL for patients with CHD or diabetic patients with > or = 2 CHD risk factors. LDL-C is now calculated using the Enoch-Ashley calculation, which is a validated novel method providing better accuracy than the Friedewald equation in the estimation of LDL-C. Enoch SS et al. TYLER. 2013;310(19): 4794-3878 (http://education.[employer]/faq/FHS237) CHOL/HDLC RATIO 3.6 <5.0 (calc) [facility] NON-HDL CHOLESTEROL 123 <130 mg/dL (calc) [email or web address] Comment: For patients with diabetes plus 1 major ASCVD risk factor, treating to a non-HDL-C goal of <100 mg/dL (LDL-C of <70 mg/dL) is considered a therapeutic option. Blood Blood / Unknown 02/15/2025 3 :22 PM EDT 02/15/2025 3:22 PM EDT Narrative [facility] - 02/16/2025 5:14 PM EDT FASTING:UNKNOWN Kaylin Thayer TEST SPECIALIST-C LAB - BLOOD DRAW Final Re sult Performing Organization Address [facility] Co de Phone Number [facility] [address] [address], [employer] [address] [address] * THYROID CASCADING REFLEX PANEL (02/15/2025 3:22 PM EDT) TSH 1.64 0.40 - 4.50 mIU/L [email or web address] [facility] Comment: ?Reference Range ?> or = 20 Years ??0.40-4.50 ? Ranges ?First trimester ?0.26-2.66 ?Second trimester ?? 0.55-2.73 ?Third trimester ?0.43-2.91 Blood Blood / Unknown 02/15/2025 3 :22 PM EDT 02/15/2025 3:22 PM EDT Narrative [employer] [facility] - 02/16/2025 5:14 PM EDT FASTING:UNKNOWN Kaylin Thayer TEST SPECIALIST-C LAB - BLOOD DRAW Edited R esult - Final Performing Organization Address [facility] Co de Phone Number [employer] [address] [address], [facility] [address] [phone] * COMPREHENSIVE METABOLIC PANEL (02/15/2025 3:22 PM EDT) GLUCOSE 93 65 - 99 mg/dL [email or web address] Comment: ?Fasting reference interval UREA NITROGEN (BUN) 22 7 - 25 mg/dL [facility] CREATININE (blood) 0.51 0.50 - 0.97 mg/dL [email or web address] EGFR 122 > OR = 60 mL/min/1. 73m2 [email or web address] BUN/CREATININE RATIO SEE NOTE: [facility] Comment: ?? Not Reported: BUN and Creatinine are within ?? reference range. ? SODIUM 136 135 - 146 mmol/L [facility] POTASSIUM 4.9 3.5 - 5.3 mmol/L [facility] CHLORIDE 105 98 - 110 mmol/L [facility] CARBON DIOXIDE 25 20 - 32 mmol/L [facility] CALCIUM 9.3 8.6 - 10.2 mg/dL [facility] PROTEIN, TOTAL 7.1 6.1 - 8.1 g/dL [facility] ALBUMIN 4.4 3.6 - 5.1 g/dL [facility] GLOBULIN 2.7 1.9 - 3.7 g/dL (calc) [facility] ALBUMIN/GLOBULI N RATIO 1.6 1.0 - 2.5 (calc) [facility] BILIRUBIN, TOTAL 0.4 0.2 - 1.2 mg/dL [facility] ALKALINE PHOSPHATASE 47 31 - 125 U/L [facility] AST 17 10 - 30 U/L [facility] ALT 14 6 - 29 U/L [facility] Blood Blood / Unknown 02/15/2025 3 :22 PM EDT 02/15/2025 3:22 PM EDT Narrative [employer] [facility] - 02/16/2025 5:14 PM EDT FASTING:UNKNOWN Kaylin Thayer TEST SPECIALIST-C LAB - BLOOD DRAW Edited R esult - Final [facility] [address] [address], [facility] [address] [place] [address] * BLOOD COUNT COMPLETE AUTO&AUTO DIFRNTL WBC (02/15/2025 3:22 PM EDT) WHITE BLOOD CELL COUNT 6.5 3.8 - 10.8 Thousand/ uL [facility] RED BLOOD CELL COUNT 4.03 3.80 - 5.10 Million/u L [facility] HEMOGLOBIN 11.7 11.7 - 15.5 g/dL [facility] HEMATOCRIT 36.2 35.0 - 45.0 % [employer] MCV 89.8 80.0 - 100.0 fL [employer] MCH 29.0 27.0 - 33.0 pg [employer] MCHC 32.3 32.0 - 36.0 g/dL [employer] Comment: For adults, a slight decrease in the calculated MCHC value (in the range of 30 to 32 g/dL) is most likely not clinically significant; however, it should be interpreted with caution in correlation with other red cell parameters and the patient's clinical condition. RDW 11.4 11.0 - 15.0 % [employer] PLATELET COUNT 325 140 - 400 Thousand/ uL [employer] MPV 10.7 7.5 - 12.5 fL [employer] ABSOLUTE NEUTROPHILS 3,757 1,500 - 7,800 cells/uL [employer] ABSOLUTE LYMPHOCYTES 2,191 850 - 3,900 cells/uL [employer] ABSOLUTE MONOCYTES 429 200 - 950 cells/uL [employer] ABSOLUTE EOSINOPHILS 72 15 - 500 cells/uL [employer] ABSOLUTE BASOPHILS 52 0 - 200 cells/uL [facility] [place] [employer] NEUTROPHILS PCT 57.8 % [employer] [facility] LYMPHOCYTES 33.7 % [facility] [employer] [facility] MONOCYTES 6.6 % [facility] EOSINOPHILS 1.1 % [facility] [email or web address] BASOPHILS 0.8 % [employer] [facility] Blood Blood / Unknown 02/15/2025 3 :22 PM EDT 02/15/2025 3:22 PM EDT Narrative [employer] [facility] - 02/16/2025 5:14 PM EDT FASTING:UNKNOWN Kaylin Thayer TEST SPECIALIST-C LAB - BLOOD DRAW Edited R esult - Final [facility] [employer] [facility] [address] [address], [email or web address] [facility] [address] [place] [address] * HCG URINE MCKESSON (POCT) (02/15/2025 3:12 PM EDT) URINE HCG NEGATIVE NEGATIVE [facility] BACK OFF[facility] POCT INTERNAL CONTROL PASS PASS [facility] OFF[facility] POCT Urine Urine specimen / Unknown 02/15/2025 3:12 PM EDT Genarochelita Jeovany FNP-C LAB - NO BLOOD DRAW Final Result Performing Organization Address [facility] Co de Phone Number [facility] POCT * (ABNORMAL) URINALYSIS, MULTISTIX (POCT) (02/15/2025 3:11 PM EDT) URINE GLUCOSE NEGATIVE NEGATIVE [facility] OFF[facility] POCT URINE BILIRUBIN NEGATIVE NEGATIVE [facility]- BACK OFF[facility] POCT URINE KETONES NEGATIVE NEGATIVE [facility] OFF[facility] POCT URINE SPECIFIC GRAVITY 1.030(A) <=1.005 - >=1.030 [facility] POCT URINE BLOOD TRACE HEMOLYZED(A) NEGATIVE [facility] POCT URINE PH 5.5 5.0 - 8.5 [facility] POCT URINE PROTEIN 30 (1+)(A) Negative [facility] OFF[facility] POCT URINE UROBILINOGEN 0.2 0.2 - 1.0 E.U./dL [facility] POCT URINE NITRITE NEGATIVE NEGATIVE [facility] POCT URINE LEUKOCYTES NEGATIVE NEGATIVE [facility]- BACK OFFICE POCT URINE COLOR YELLOW STRAW, YELLOW [facility]- BACK OFFICE POCT ODOR URINE Normal Normal [facility]- BACK OFFICE POCT CLARITY OF URINE CLEAR CLEAR [facility]- BACK OFFICE POCT Urine Urine specimen / Unknown 02/15/2025 3:11 PM EDT [facility] - NO BLOOD DRAW Final Result Performing Organization Address [facility]/ZIP Co de Phone Number [facility]- BACK OFFICE POCT documented in this encounter Visit Diagnoses Diagnosis Routine general medical examination at a health care facility- Primary Irregular menstrual bleeding Irregular menstrual cycle Dysuria Encounter for Depo-Provera contraception Surveillance of other previously prescribed contraceptive method documented in this encounter Administered Medications Active Administered Medications - up to 3 most recent administrations Medication Order MAR Action Action Date Dose Rate Site medroxyPROGESTERone (Depo-Provera) injection syringe 150 mg 150 mg, intramuscular, Every 3 Months, First dose on Fri02/15/25 at 1500, For 4 doses, SHAKE WELLIndications:Irregular menstrual bleeding,Encounter for Depo-Provera contraception Given 02/15/2025 3:00 PM EDT 150 mg Left Deltoid documented in this encounter Additional Health Concerns Assessment Noted Time PHQ-9 Depression Total Score: 0 11/19/19 2:30 PM PST documented as of this encounter Care Teams Porcelain Technician Relationship Specialty Start Date End Date Kaylin Thayer FNP-C [address] [place] [address] PCP - General Internal Medicine 12/02/24 documented as of this encounter
[2025-02-16 18:15] LABS: Basophils Absolute Auto 0.1 X10*3/uL (0.0-0.2); Basophils Percent Auto 0.6 % (0-2); Eosinophils Absolute Auto 0.1 X10*3/uL (0.0-0.4); Eosinophils Percent Auto 1.4 % (0-4); Hematocrit 34.1 % (37.0-47.0); Hemoglobin 11.4 g/dl (12.0-16.0); Imm Gran Abs Auto 0.02 X10*3/uL (0.00-0.03); Imm Gran Pct Auto 0.2 % (0.0-0.4); Lymphocytes Absolute Auto 2.6 X10*3/uL (1.2-4.9); Lymphocytes Percent Auto 31.3 % (20-40); Mean Corpuscular HGB Conc 33.4 g/dl (31.0-35.0); Mean Corpuscular Hemoglobin 28.8 pg (27.0-33.0); Mean Corpuscular Volume 86.1 fL (80.0-98.0); Mean Platelet Volume 10.2 fL (9.4-12.3); Monocytes Absolute Auto 0.5 X10*3/uL (0.1-1.2); Monocytes Percent Auto 6.1 % (2-11); Neutrophils Percent Auto 60.4 % (45-73); Platelet Count 306 X10*3/uL (160-400); Red Blood Count 3.96 X10*6/uL (4.20-5.50); Red Cell Distribution Width 11.7 % (11.0-16.0); White Blood Count 8.4 X10*3/uL (4.8-10.8)
[2025-02-16 18:26] LABS: Alanine Aminotransferase 23 U/L (0-31); Albumin Level 4.3 g/dL (3.5-5.0); Alkaline Phosphatase 51 U/L (39-117); Anion Gap 12 (12-20); Aspartate Amino Transferase 29 U/L (5-31); Bilirubin Total 0.2 mg/dL (0.0-1.0); Blood Urea Nitrogen 26 mg/dL (9-16); Calcium 9.4 mg/dL (8.4-10.2); Carbon Dioxide 24 mmol/L (22-29); Chloride 109 mmol/L (96-108); Creatinine Clr Calc Pharmacy 91.3; Estimated Glomerular Filt Rate > 60; Glucose Random 90 mg/dL (60-115); Potassium 4.5 mmol/L (3.3-5.1); Sodium 140 mmol/L (135-145); Total Protein 7.1 g/dL (6.5-8.0)
[2025-02-16 18:57] VITALS: BP 96/58; PULSE 71
[2025-02-16 18:58] VITALS: BP 105/68; BP 122/72; PULSE 85; PULSE 86
[2025-02-16 18:58] LABS: HCG Quantitative < 2 mIU/mL
[2025-02-16 19:02] LABS: Troponin-I High Sensitivity < 2.7 ng/L (<3.5-17.0)
[2025-02-16] MEDS: Ketorolac Tromethamine 60 MG/2 ML VIAL IM (20:26)
[2025-02-16 20:41] VITALS: BP 122/74; PULSE 78; RESP 18; TEMP 36.6; O2SAT 99
[2025-02-16 20:55] VITALS: BP 122/74; PULSE 78; RESP 18; TEMP 36.6; O2SAT 99
== END 2025-02-16 20:56 | disposition home or self-care (01) ==
PROVIDERS: Physician Assistant Medical; Emergency Provider Emergency Medicine; PCP Dentist General Practice
DX: S93.401A Sprain of unspecified ligament of right ankle, initial encounter (principal); S96.911A Strain of unspecified muscle and tendon at ankle and foot level, right foot, initial encounter; W10.8XXA Fall (on) (from) other stairs and steps, initial encounter; R53.1 Weakness; M25.571 Pain in right ankle and joints of right foot; Y93.89 Activity, other specified; Y92.008 Other place in unspecified non-institutional (private) residence as the place of occurrence of the external cause; Y99.9 Unspecified external cause status
CPT/HCPCS: 36415; 73564; 73610; 73630; 80053; 83735; 84484; 84702; 85025; 93005; 96372; 99284; J1885

== ENCOUNTER → 2025-02-16 17:38 | Outpatient (BNV) | payer MEDICAID, SELFPAY | PROVIDERS: Emergency Provider Emergency Medicine; PCP Dentist General Practice; Visit Provider Radiology Diagnostic Radiology | DX: M25.561 Pain in right knee (principal); M25.571 Pain in right ankle and joints of right foot; W19.XXXA Unspecified fall, initial encounter | CPT/HCPCS: 73564; 73610; 73630 ==

== ENCOUNTER → 2025-02-16 17:39 | Outpatient (BNV) | payer MEDICAID, SELFPAY | PROVIDERS: Emergency Provider Emergency Medicine; PCP Dentist General Practice; Visit Provider Internal Medicine Cardiovascular Disease | DX: R42 Dizziness and giddiness (principal) | CPT/HCPCS: 93010 ==

== ENCOUNTER 2025-02-18 17:35 | Emergency (ER) | payer MEDICAID, SELFPAY ==
[2025-02-18 17:43] VITALS: BP 108/73; PULSE 89; RESP 18; TEMP 36.6; O2SAT 96; BMI 22.1
--- NOTE | 2025-02-18 17:48 | ED_ITS ---
HPI - General Adult General Chief complaint: Extremity Problem Stated complaint: right left leg pain Related Data Previous Rx's ?Medication ?Instructions ?Recorded ofloxacin 0.3 % eye drops 2 drp ophthalmic (eye) QID 5 days 11/06/24 #5 mL cephalexin 500 mg capsule 500 mg PO QID 7 days #28 caps 11/28/24 ibuprofen 400 mg tablet 400 mg PO Q6H PRN fever or pain 7 11/28/24 days #28 tabs acetaminophen 500 mg tablet 1,000 mg (2 x 500 mg) PO Q6H PRN 01/31/25 (Tylenol Extra Strength) pain #20 tabs amoxicillin 875 mg-potassium 1 tab PO Q12H 14 days #28 tabs 01/31/25 clavulanate 125 mg tablet ibuprofen 400 mg tablet 400 mg PO TID PRN fever or pain 01/31/25 #30 tabs acetaminophen 500 mg tablet 500 mg PO Q6H PRN fever or pain 02/16/25 #20 tabs ibuprofen 600 mg tablet 600 mg PO TID PRN pain #14 tabs 02/16/25 Allergies Allergy/AdvReac Type Severity Reaction Status Date / Time No Known Allergies Allergy Verified 02/18/25 17:51 [facility] Past Medical History Medical History COVID-19 Social History Social History Patient Tobacco Use Status: Never used Tobacco Advance Directives: No Advance Directives Information Provided: No Do you have a plan to hurt others: No Plan Physical Exam ED Vital Signs: BMI result Body Mass Index 22.1 Course Course Course Narrative: This is an RME performed by Sid Victor CNP: Additional HPI, ROS, PE not included below will be deferred to primary provider. Patient is a 39-year-old female Jenni speaking who presents for evaluation of right lower extremity pain and swelling. States she was seen in the emergency department 3 days ago for this her with preceeding injury, however symptoms have worsened severely. Despite taking Tylenol and ibuprofen for pain is unchanged. She reports it to be unbearable at this time. Had negative XR ankle and foot. Advised symptoms can be expected with sprain, she however is requesting analgesia at this time Reevaluation(s) Reevaluation #1: LWCT from waiting room Discharge Plan Discharge Clinical Impression: Ankle sprain Patient Disposition: Left W/O Completing Treatment Prescriptions: No Action ofloxacin 0.3 % drops 2 drp ophthalmic (eye) QID 5 Days Qty: 5 0RF acetaminophen [Tylenol Extra Strength] 500 mg tablet 1,000 mg PO Q6H PRN (Reason: pain) Qty: 20 0RF ibuprofen 400 mg tablet 400 mg PO TID PRN (Reason: fever or pain) Qty: 30 0RF amoxicillin-pot clavulanate 875-125 mg tablet 1 tab PO Q12H 14 Days Qty: 28 0RF cephalexin 500 mg capsule 500 mg PO QID 7 Days Qty: 28 0RF ibuprofen 400 mg tablet 400 mg PO Q6H PRN (Reason: fever or pain) 7 Days Qty: 28 0RF ibuprofen 600 mg tablet 600 mg PO TID PRN (Reason: pain) Qty: 14 0RF acetaminophen 500 mg tablet 500 mg PO Q6H PRN (Reason: fever or pain) Qty: 20 0RF Interventions: LWBS Worksheet Last Done: 02/18/25 23:08 Discharge Date/Time: 02/18/25 23:08
== END 2025-02-18 23:08 | disposition left against medical advice (07) ==
PROVIDERS: Emergency Provider Emergency Medicine
DX: M79.89 Other specified soft tissue disorders (principal); Z53.21 Procedure and treatment not carried out due to patient leaving prior to being seen by health care provider
CPT/HCPCS: 99281

== ENCOUNTER 2025-03-02 08:18 | Outpatient (AMB) | payer MEDICAID, SELFPAY ==
--- NOTE | 2025-03-02 08:22 | MHC.OFFVIS ---
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 Bleeding has stopped. C/o burning w/urination. Admits to a poor appetite for 3 months. History of anemia and fatigue. Labs: 02/17- 11.4/34.1, 306 02/16-12.2/36.2, 306 Onset of bleeding one month ago, heavy, up to 10 d x 3 episodes. Had d/c'd Depo, bled heavy after 6 month. regular cycles prior to Depo. Plans a future . , SAB 1. Hx pp hemorrhages. Last pap-none. Last BIOINFORMATICS SPECIALIST provider at [facility]-2 wks ago for consult not workup did not have a pelvic exam. PMSH-negative. PFSH Medical History COVID-19 Social History Alcohol intake: never Patient Tobacco Use Status: Never used Tobacco Female Reproductive History Menstrual Date of last menstrual period: 02/20/25 control method: progesterone injection Total pregnancies: 6 Full term: 6 Number of Living Children: 6 Review of Systems Const All systems reviewed & are unremarkable except as noted in HPI and below Physical Exam Const General: cooperative, healthy appearing and no acute distress Orientation/consciousness: patient oriented x3 GI Inspection: Yes normal to inspection Palpation (GI): Soft to palpation and Other GI palpation findings present (Nontender) Rectal Exam - Female: visual inspection normal General: Yes bladder normal to palpation External Female Exam: normal appearance of the urethra Speculum Exam - Vagina: normal appearance of the vagina, normal palpation and normal vaginal discharge Speculum Exam - Cervix: normal appearance of the cervix, normal palpation and Other cervical findings present (Bled slightly with Pap) Bimanual exam- vagina & uterus: normal bimanual exam, normal palpation, uterine size normal, bladder normal to palpation, normal palpation, uterine shape normal and non-tender Bimanual Exam- Adnexa, other: normal adnexae Neuro General: patient oriented x3 Results AMB Urinalysis, Automated UA Leukoctes 0.5 Courtney/uL Last Edit by MAURIZIO Joy on 03/02/25 08:55 UA Nitrite Negative Last Edit by Sirena Kelly [facility] on 03/02/25 08:55 UA Urobilinogen 0 mg/dL Last Edit by Sirena Kelly [facility] on 03/02/25 08:55 UA Protein 0.5 mg/dL Last Edit by Sirena Kelly [facility] on 03/02/25 08:55 UA pH 6.0 Last Edit by Sirena Kelly [facility] on 03/02/25 08:55 UA Blood 0 Bharat/uL Last Edit by Sirena Kelly [facility] on 03/02/25 08:55 UA Specific [place] 1.025 Last Edit by Sirena Kelly [facility] on 03/02/25 08:55 UA Ketone Negative Last Edit by Sirena Kelly [facility] on 03/02/25 08:55 UA Bilirubin 0 mg/dL Last Edit by Sirena Kelly [facility] on 03/02/25 08:55 UA Glucose 0 mg/dL Last Edit by Sirena Kelly [facility] on 03/02/25 08:55 AMB Test Urine AMB Test Urine Negative Last Edit by Sirena Kelly [facility] on 03/02/25 08:55 Assessment & Plan Assessment & Plan (1) Abnormal uterine bleeding (AUB): Code(s): N93.9 - Abnormal uterine and vaginal bleeding, unspecified Category: Medical Plan Discuss workup for AUB, Pap completed. GC chlamydia and BV panel obtained. Pelvic ultrasound ordered. Lab work TSH, CBC, vit D. Urinalysis and UPT-negative. Warnings reviewed for heavy or prolonged bleeding advised to call the office. If any heavier, prolonged bleeding or symptoms of anemia such as shortness of breath lightheadedness dizziness to go directly to the emergency room for immediate care. Rx for vitamins sent. Advised small frequent meal of the day in good hydration. Follow up in person for test results. The patient expressed understanding and agreement with the plan of care. All of her questions and concerns were addressed to the best of my ability. This note is constructed using voice recognition software. While every effort has been made to ensure accuracy, television receiver analyzer errors may have been included. Orders: Orders AMB Urinalysis Automated Today R30.0 - Dysuria US pelvic and transvaginal Today N93.9 - Abnormal uterine and vaginal bleeding, unspecified CT NG by PCR Today N93.9 - Abnormal uterine and vaginal bleeding, unspecified HPV High risk Today N93.9 - Abnormal uterine and vaginal bleeding, unspecified Pap Smear Today N93.9 - Abnormal uterine and vaginal bleeding, unspecified Complete Blood Count no Diff Today N93.9 - Abnormal uterine and vaginal bleeding, unspecified AMB HCG Urine Test Today N93.9 - Abnormal uterine and vaginal bleeding, unspecified Bacterial Vaginosis Panel Today N93.9 - Abnormal uterine and vaginal bleeding, unspecified Thyroid Stimulating Hormone Today N92.1 - Excessive and frequent menstruation with irregular cycle, N93.9 - Abnormal uterine and vaginal bleeding, unspecified Vitamin D 25-OH (D2 and D3) Today R53.83 - Other fatigue Medications: New PNV [id number] 400 mcg-35 mg- 25 mg-5 mg ( Gummies) 1 tab PO DAILY 90 tabs 4RF Discontinued amoxicillin-pot clavulanate 875-125 mg Discontinued Reason: Patient Completed Course 1 tab PO Q12H 14 days 28 tabs 0RF Coding Level of Care Code Tele New Pt Level 4 (36939) Diagnoses Abnormal uterine bleeding (AUB) N93.9
--- OUTSIDE RECORDS SUMMARY | 2025-03-02 08:27 | XMS_ITS | Clinical Summary ---
Author Organization [facility] Address [address] [place] [address] Care Team Providers Care Supervising Appraiser Name Role Phone Kaylin Thayer STUDENT FINANCE ADVISOR-C Primary Care Provider [phone] Source Comments PLEASE NOTE, if this patient is a minor, it may be UNLAWFUL to discuss sensitive information that is contained in these records (such as FAMILY PLANNING, MENTAL HEALTH or SUBSTANCE ABUSE) with the minor patient's parent or other person without the patient's specific authorization.[facility] Allergies No known active allergies Medications acetaminophen (TYLENOL) 500 mg tabletIndications: Nonintractable episodic headache, unspecified headache type Take 1 Tablet by mouth every 6 (six) hours as needed for pain 30 Tablet 1 Active medroxyPROGESTERon e (DEPO-PROVERA) 150 mg/mL syringeIndications :Irregular menstrual bleeding,Encounter for Depo-Provera contraception Inject 1 mL into the muscle every 3 (three) months 1 mL 3 Active Hospital, Clinic, or Other Facility Administered Medication Ordered Dose Route Frequency Start Date End Date Status medroxyPROGESTERone (Depo-Provera) injection syringe 150 mgIndications:Irregula r menstrual bleeding,Encounter for Depo-Provera contraception 150 mg IM Every 3 Months 02/15/2025 01/17/2026 Active Active Problems Problem Noted Date Diagnosed Date 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 01/31/2025 Mixed conductive and sensorineural hearing loss, bilateral 01/31/2025 Hepatitis B immune 07/02/2024 Overview (07/02/2024): Per [...] Encounters Date Type Department Care Team Description 02/15/2025 3:00 PM EDT Office Visit [address] [phone] Kaylin Thayer FNP-C Routine general medical examination at a health care facility (Primary Dx); Irregular menstrual bleeding; Dysuria; Encounter for Depo-Provera contraception from Last 3 Months Immunizations Immunization Administration Dates Next Due COVID-19,SARS-COV-2 VACCINE, UNSPECIFIED (US Adm in) 06/07/2024 HEP B, PED/ADOL 06/07/2024,02/03/2024 INFLUENZA, SEASONAL, INJECTABLE 02/03/2024 IPV (IPOL) 02/03/2024 Influenza (FLUBLOK),recombinant,injectable,preservative Free 06/23/2024 M[employer] ([email or web address]) COVID-19 VACCINE 02/03/2024 MMR (MMR II/Priorix) 06/07/2024,02/03/2024 [facility] COVID-19 (Comirnaty), Mrna, Lnp-s, Pf, Chidi-sucrose, 30 Mcg/0.3 Ml, 12yr+ 11/19/2024 TDAP 06/07/2024 Td (adult) unspecified 02/03/2024 Varicella (Varivax), Live Vaccine 06/07/2024, Family History Medical History Relation Name Comments [...] 16 02/15/2025 2:32 PM EDT Oxygen Saturation 98% 11/19/2024 2:29 PM EST Inhaled Oxygen Concentration - - Weight 50.8 kg (112 lb) 02/15/2025 2:32 PM EDT Height 152.4 cm (5') 02/15/2025 2:32 PM EDT Body Mass Index 21.87 02/15/2025 2:32 PM EDT Plan of Treatment Upcoming Encounters Date Type Department Care Team (Late st Contact Info) Description 04/01/2025 10:40 AM EDT Office Visit [address] [phone] [place], [place] [address] [place] [address] 05/11/2025 2:20 PM EDT Office Visit [address] [phone] Health Maintenance Due Date Last Done Comments HPV Screening 1986 Pap + HPV 1986 Cervical Cancer Screening 2007 Pap Smear 2007 [id number] INJ 05/10/2025 02/15/2025 Relationship Safety Screening/Counseling 06/23/2025 06/23/2024 Annual Preventive Care Visit 02/15/2026 02/15/2025 Anxiety Screening 02/15/2026 02/15/2025 Tobacco Screening 02/15/2026 02/15/2025 Hypertension Screening (#1) 02/15/2028 Diabetes Screening 02/16/2028 02/15/2025, 02/15/2025 Imm-DTaP/Tdap/Td (2 - Td or Tdap) 06/07/2034 , 02/03/2024 Imm-Hepatitis B Discontinued 06/07/2024, 02/03/2024 HIV Screening Completed 06/23/2024 Hepatitis B Screening Completed 06/23/2024, Hepatitis C Screening Completed 06/23/2024 Imm-Influenza Completed 06/23/2024, 02/03/2024 Alcohol and Drug Screen Completed 11/19/2024, 06/23 Depression Annual Screen Completed 11/19/2024 [id number] Completed 11/19/2024, 05/20, 02/03/2024 Cervical Ablation/Cold-Knife Conization Discontinued Cervical Cryotherapy Discontinued Colposcopy Discontinued Endometrial Biopsy Discontinued Excision/Leep Discontinued HPV Genotyping Discontinued Vaginal Pap Discontinued Vulvoscopy Discontinued Procedures Procedure Name Priority Date/Time Associated Diagnosis Comments IMAGING SCANNED DOCUMENT 02/17/2025 3:00 AM EDT IMAGING SCANNED DOCUMENT 02/16/2025 3:00 AM EDT IMAGING SCANNED DOCUMENT 02/16/2025 3:00 AM EDT IMAGING SCANNED DOCUMENT 02/16/2025 3:00 AM EDT IMAGING SCANNED DOCUMENT 02/16/2025 3:00 AM EDT HEMOGLOBIN GLYCOSYLATED A1C Routine 02/15/2025 3:22 PM EDT Routine general medical examination at a health care facility LIPID PANEL Routine 02/15/2025 3:22 PM EDT Routine general medical examination at a health care facility THYROID CASCADING REFLEX PANEL Routine 02/15/2025 3:22 PM EDT Routine general medical examination at a health care facility COMPREHENSIVE METABOLIC PANEL Routine 02/15/2025 3:22 PM EDT Routine general medical examination at a health care facility BLOOD COUNT COMPLETE AUTO&AUTO DIFRNTL WBC Routine 02/15/2025 3:22 PM EDT Routine general medical examination at a health care facility HCG URINE MCKESSON (POCT) Routine 02/15/2025 3:12 PM EDT Encounter for Depo-Provera contraception URINALYSIS, MULTISTIX (POCT) Routine 02/15/2025 3:11 PM EDT Dysuria SURESWAB ADVANCED VAGINITIS PLUS, TMA Routine 02/15/2025 2:55 PM EDT Dysuria REFERRAL SCANNED DOCUMENT 02/01/2025 3:00 AM EDT REFERRAL SCANNED DOCUMENT 12/21/2024 3:00 AM EST IMAGING SCANNED DOCUMENT 12/21/2024 3:00 AM EST OTHER ORDERS SCANNED DOCUMENT 12/21/2024 3:00 AM EST IMAGING SCANNED DOCUMENT 12/15/2024 3:00 AM EST IMAGING SCANNED DOCUMENT 12/15/2024 3:00 AM EST IMAGING SCANNED DOCUMENT 12/15/2024 3:00 AM EST HIV 1/2 AG & AB W/RFLX (4TH [...] Recently Relevant to Health Maintenance Results * IMAGING SCANNED DOCUMENT (02/17/2025 3:00 AM EDT) Only the most recent of9 resultswithin the time period is included. 02/17/2025 3:00 AM EDT Kaylin Nicholsikari STUDENT FINANCE ADVISOR-C SCAN IMAGING Final Res ult * THYROID CASCADING REFLEX PANEL (02/15/2025 3:22 PM EDT) Pathologist [facility] TSH 1.64 0.40 - 4.50 mIU/L [employer] Comment: ?Reference Range ?> or = 20 Years ??0.40-4.50 ? Ranges ?First trimester ?0.26-2.66 ?Second trimester ?? 0.55-2.73 ?Third trimester ?0.43-2.91 Blood Blood / Unknown 02/15/2025 3 :22 PM EDT 02/15/2025 3:22 PM EDT Narrative [facility] - 02/16/2025 5:14 PM EDT FASTING:UNKNOWN Kaylin Thayer STUDENT FINANCE ADVISOR-C LAB - BLOOD DRAW Edited R esult - Final [facility] [address] [place] [address], [employer] [address] [place] [phone] * BLOOD COUNT COMPLETE AUTO&AUTO DIFRNTL WBC (02/15/2025 3:22 PM EDT) Pathologist [facility] WHITE BLOOD CELL COUNT 6.5 3.8 - 10.8 Thousand/ uL [employer] RED BLOOD CELL COUNT 4.03 3.80 - 5.10 Million/u L [employer] HEMOGLOBIN 11.7 11.7 - 15.5 g/dL [employer] HEMATOCRIT 36.2 35.0 - 45.0 % [employer] MCV 89.8 80.0 - 100.0 fL [employer] MCH 29.0 27.0 - 33.0 pg [employer] MCHC 32.3 32.0 - 36.0 g/dL [employer] Comment: For adults, a slight decrease in the calculated MCHC value (in the range of 30 to 32 g/dL) is most likely not clinically significant; however, it should be interpreted with caution in correlation with other red cell parameters and the patient's clinical condition. RDW 11.4 11.0 - 15.0 % [employer] PLATELET COUNT 325 140 - 400 Thousand/ uL [employer] MPV 10.7 7.5 - 12.5 fL [employer] ABSOLUTE NEUTROPHILS 3,757 1,500 - 7,800 cells/uL [employer] ABSOLUTE LYMPHOCYTES 2,191 850 - 3,900 cells/uL [employer] ABSOLUTE MONOCYTES 429 200 - 950 cells/uL [employer] ABSOLUTE EOSINOPHILS 72 15 - 500 cells/uL [employer] ABSOLUTE BASOPHILS 52 0 - 200 cells/uL [employer] NEUTROPHILS PCT 57.8 % [facility] LYMPHOCYTES 33.7 % [facility] MONOCYTES 6.6 % [facility] [employer] EOSINOPHILS 1.1 % [facility] BASOPHILS 0.8 % [employer] Blood Blood / Unknown 02/15/2025 3 :22 PM EDT 02/15/2025 3:22 PM EDT Narrative [facility] - 02/16/2025 5:14 PM EDT FASTING:UNKNOWN Kaylin Thayer STUDENT FINANCE ADVISOR-C LAB - BLOOD DRAW Edited R esult - Final [employer] [facility] [address] [address], [employer] [address] [place] [address] * HEMOGLOBIN GLYCOSYLATED A1C (02/15/2025 3:22 PM EDT) HEMOGLOBIN A1C 5.2 <5.7 % [employer] Comment: For the purpose of screening for the presence of diabetes: <5.7% ? Consistent with the absence of diabetes 5.7-6.4% ?Consistent with increased risk for diabetes ?(prediabetes) > or =6.5% ??Consistent with diabetes This assay result is consistent with a decreased risk of diabetes. Currently, no consensus exists regarding use of hemoglobin A1c for diagnosis of diabetes in children. According to [place] Diabetes Association (ADA) guidelines, hemoglobin A1c <7.0% represents optimal control in non- diabetic patients. Different metrics may apply to specific patient populations. Standards of Medical Care in Diabetes(ADA). ?? Blood Blood / Unknown 02/15/2025 3 :22 PM EDT 02/15/2025 3:22 PM EDT Narrative [facility] - 02/16/2025 5:14 PM EDT FASTING:UNKNOWN Gen[employer]hel[employer]ir[employer] Jeovany STUDENT FINANCE ADVISOR-C LAB - BLOOD DRAW Final Re sult [facility] [address] [address], [employer] [address] [address] * (ABNORMAL) LIPID PANEL (02/15/2025 3:22 PM EDT) [facility] Signature CHOLESTEROL, TOTAL 170 <200 mg/dL [facility] HDL CHOLESTEROL 47(L) > OR = 50 mg/dL [employer] [facility] TRIGLYCERIDES 65 <150 mg/dL [facility] LDL-CHOLESTEROL 108(H) 99 mg/dL (calc) [facility] Comment: Reference range: <100 Desirable range <100 mg/dL for primary prevention; ?? <70 mg/dL for patients with CHD or diabetic patients with > or = 2 CHD risk factors. LDL-C is now calculated using the Enoch-Ashley calculation, which is a validated novel method providing better accuracy than the Friedewald equation in the estimation of LDL-C. Enoch SS et al. TYLER. 2013;310(19): 8093-8557 (http://education.REBIScan/faq/ERA110) CHOL/HDLC RATIO 3.6 <5.0 (calc) [employer] NON-HDL CHOLESTEROL 123 <130 mg/dL (calc) [employer] Comment: For patients with diabetes plus 1 major ASCVD risk factor, treating to a non-HDL-C goal of <100 mg/dL (LDL-C of <70 mg/dL) is considered a therapeutic option. Blood Blood / Unknown 02/15/2025 3 :22 PM EDT 02/15/2025 3:22 PM EDT Narrative [facility] - 02/16/2025 5:14 PM EDT FASTING:UNKNOWN Kaylin Thayer STUDENT FINANCE ADVISOR-C LAB - BLOOD DRAW Final Re sult [facility] [address] [address], [facility] [address] [place] [address] * COMPREHENSIVE METABOLIC PANEL (02/15/2025 3:22 PM EDT) Pathologist [facility] GLUCOSE 93 65 - 99 mg/dL [facility] Comment: ?Fasting reference interval UREA NITROGEN (BUN) 22 7 - 25 mg/dL [facility] CREATININE (blood) 0.51 0.50 - 0.97 mg/dL [facility] EGFR 122 > OR = 60 mL/min/1. 73m2 [facility] BUN/CREATININE RATIO SEE NOTE: [facility] Comment: ?? Not Reported: BUN and Creatinine are within ?? reference range. ? SODIUM 136 135 - 146 mmol/L [facility] POTASSIUM 4.9 3.5 - 5.3 mmol/L [facility] CHLORIDE 105 98 - 110 mmol/L [facility] CARBON DIOXIDE 25 20 - 32 mmol/L [facility] CALCIUM 9.3 8.6 - 10.2 mg/dL [facility] PROTEIN, TOTAL 7.1 6.1 - 8.1 g/dL [facility] ALBUMIN 4.4 3.6 - 5.1 g/dL [facility] GLOBULIN 2.7 1.9 - 3.7 g/dL (calc) [facility] ALBUMIN/GLOBULI N RATIO 1.6 1.0 - 2.5 (calc) [facility] BILIRUBIN, TOTAL 0.4 0.2 - 1.2 mg/dL [facility] ALKALINE PHOSPHATASE 47 31 - 125 U/L [facility] AST 17 10 - 30 U/L [facility] ALT 14 6 - 29 U/L [facility] Blood Blood / Unknown 02/15/2025 3 :22 PM EDT 02/15/2025 3:22 PM EDT Narrative [employer] [facility] - 02/16/2025 5:14 PM EDT FASTING:UNKNOWN [facility] Jeovany FNP-C LAB - BLOOD DRAW Edited R esult - Final Performing Organization Address City/[facility]/ZIP Co de Phone Number [facility] [address] [address], [facility] [address] [address] * HCG URINE MCKESSON (POCT) (02/15/2025 3:12 PM EDT) URINE HCG NEGATIVE NEGATIVE [facility]- BACK OFFICE POCT INTERNAL CONTROL PASS PASS [facility]- BACK OFFICE POCT Urine Urine specimen / Unknown 02/15/2025 3:12 PM EDT [employer] LAB - NO BLOOD DRAW Final Result Performing Organization Address City/[facility]/ZIP Co de Phone Number [facility]- BACK OFFICE POCT * (ABNORMAL) URINALYSIS, MULTISTIX (POCT) (02/15/2025 3:11 PM EDT) URINE GLUCOSE NEGATIVE NEGATIVE [facility]- BACK OFFICE POCT URINE BILIRUBIN NEGATIVE NEGATIVE [facility]- BACK OFFICE POCT URINE KETONES NEGATIVE NEGATIVE [facility]- BACK OFFICE POCT URINE SPECIFIC GRAVITY 1.030(A) <=1.005 - >=1.030 [facility]- BACK OFFICE POCT URINE BLOOD TRACE HEMOLYZED(A) NEGATIVE [facility]- BACK OFFICE POCT URINE PH 5.5 5.0 - 8.5 [facility]- BACK OFFICE POCT URINE PROTEIN 30 (1+)(A) Negative [facility]- BACK OFFICE POCT URINE UROBILINOGEN 0.2 0.2 - 1.0 E.U./dL [facility]- BACK OFFICE POCT URINE NITRITE NEGATIVE NEGATIVE [facility]- BACK OFFICE POCT URINE LEUKOCYTES NEGATIVE NEGATIVE [facility]- BACK OFFICE POCT URINE COLOR YELLOW STRAW, YELLOW [facility] BACK OFF[facility] POCT ODOR URINE Normal Normal [facility]- BACK OFFICE POCT CLARITY OF URINE CLEAR CLEAR [facility]- BACK OFFICE POCT Urine Urine specimen / Unknown 02/15/2025 3:11 PM EDT [employer] Jeovany STUDENT FINANCE ADVISOR-C LAB - NO BLOOD DRAW Final Result Performing Organization Address City/[facility]/ZIP Co de Phone Number [facility] OFF[facility] POCT * [facility] ADVANCED VAGINITIS PLUS, TMA (02/15/2025 2:55 PM EDT) Pathologist [facility](R) ADV BACTERIAL VAGINOSIS (BV), TMA NEGATIVE NEGATIVE [facility] CAROL SPECIES NOT DETECTED NOT DETECTED [facility] CAROL GLABRATA NOT DETECTED NOT DETECTED [facility] COMMENT [facility] TRICHOMONAS VAGINALIS (TV), TMA NOT DETECTED NOT DETECTED [facility] CHLAMYDIA TRACHOMATIS RNA, TMA NOT DETECTED NOT DETECTED [facility] NEISSERIA GONORRHOEAE RNA, TMA NOT DETECTED NOT DETECTED [facility] COMMENT [facility] Vaginal Vaginal structure / Unknown 02/15/2025 2:55 PM EDT 02/16/2025 10:40 AM EDT Narrative [facility] - 02/16/2025 7:32 PM EDT Carol species C. albicans, C. tropicalis, C. parapsilosis, and/or C. dubliniensis can be detected, but not differentiated, in the Carol spp. result. For additional information, please refer to https://education.RES Software.Zakaz.ua/faq/PAP283 (This link is being provided for information/ educational purposes only.) [employer] LAB - NO BLOOD DRAW Final Result Performing Organization Address City/[facility]/ZIP Co de Phone Number [facility] [address] [place] [phone], [facility] [address] [address] * REFERRAL SCANNED DOCUMENT (02/01/2025 3:00 AM EDT) Only the most recent of2 resultswithin the time period is included. 02/01/2025 3:00 AM EDT Kaylin Thayer STUDENT FINANCE ADVISOR-C SCAN REFERRAL Final Res ult * OTHER ORDERS SCANNED DOCUMENT (12/21/2024 3:00 AM EST) 12/21/2024 3:00 AM EST Chma Provider Default SCAN OTHER ORDERS Final Re sult * HEPATITIS C AB W/RFLX HCV RNA, QT, RT PCR (06/23/2024 2:26 PM EDT) HEPATITIS C ANTIBODY NON-REACT EMILE NON-REACT EMILE [employer] Comment: HCV antibody was non-reactive. There is no laboratory evidence of HCV infection. In most cases, no further action is required. However, if recent HCV exposure is suspected, a test for HCV RNA (test code 21781) is suggested. For additional information please refer to http://education.Fanaticall/faq/BCS24d1 (This link is being provided for informational/ educational purposes only.) Blood Blood / Unknown 06/23/2024 2 :26 PM EDT 06/23/2024 2:27 PM EDT Narrative [facility] - 07/03/2024 1:31 AM EDT SPLIT 06/23/2024 FROM [id number] COLLECTION KIT GIVEN TO PATIENT. PATIENT ADVISED TO RETURN. Teodora Gualyssa STUDENT FINANCE ADVISOR LAB - BLOOD DRAW Edited Result - Final [facility] [address] [place] [phone], [facility] [address] [address] * HIV 1/2 AG & AB W/RFLX (4TH GEN) (06/23/2024 2:26 PM EDT) HIV AG/AB, 4TH GEN NON-REAC TIVE NON-REAC TIVE [employer] Comment: HIV-1 antigen and HIV-1/HIV-2 antibodies were [...] ?? For additional information please refer to http://education.Fanaticall/faq/DJY202 (This link is being provided for informational/ educational purposes only.) The performance of this assay has not been clinically validated in patients less than 2 years old. Blood Blood / Unknown 06/23/2024 2 :26 PM EDT 06/23/2024 2:27 PM EDT Narrative [facility] - 07/03/2024 1:31 AM EDT SPLIT 06/23/2024 FROM [id number] COLLECTION KIT GIVEN TO PATIENT. PATIENT ADVISED TO RETURN. Teodora Elder [facility] LAB - BLOOD DRAW Final Result [facility] [address] [place] [address], [employer] [address] [address] * (ABNORMAL) HEPATITIS B SURF ANTIBODY HBSAB (06/23/2024 2:26 PM EDT) HEPATITIS B SURFACE ANTIBODY QL REACTIVE( A) NON-REACT EMILE [employer] Blood Blood / Unknown 06/23/2024 2 :26 PM EDT 06/23/2024 2:27 PM EDT Narrative [facility] - 07/03/2024 1:31 AM EDT SPLIT 06/23/2024 FROM [id number] COLLECTION KIT GIVEN TO PATIENT. PATIENT ADVISED TO RETURN. Teodora Jael STUDENT FINANCE ADVISOR LAB - BLOOD DRAW Edited Result - Final [facility] [address] [address], [facility] [address] [place] [address] from Last 3 Months or Most Recently Relevant to Health Maintenance Insurance [facility] Care Teams Supervising Appraiser Relationship Specialty Start Date End Date Kaylin Thayer FNP-C [address] [place] [address] PCP - General Internal Medicine 12/02/24
[2025-03-02 08:35] VITALS: BP 100/60; BMI 22.1
== END 2025-03-02 09:56 | disposition home or self-care (01) ==
LOC: HO.HWS 08:18
PROVIDERS: Visit Provider Advanced Practice Midwife
DX: N93.9 Abnormal uterine and vaginal bleeding, unspecified (principal); R30.0 Dysuria
CPT/HCPCS: 99204

== ENCOUNTER 2025-03-02 08:18 | Outpatient (REF) | payer MEDICAID, SELFPAY ==
--- OUTSIDE RECORDS SUMMARY | 2025-03-02 09:42 | XMS_ITS | Data Portability ---
Author Organization [place] - [facility], Allergy Address [address] [address] Care Team Providers Care Multi Spindle Operator Name Role Phone [facility] Primary Care Provider [phone] Assessment Encounter Date Assessment Date Assessment LastModified by Organization Details LastModified Time 02/01/2025 02/01/2025 39-year-old female with longstanding recurrent ear infections and pain which have not always been treated, presents with worsening right-sided otalgia and hearing loss, not associated with dizziness, for which she was seen in the emergency department at [place] with CT showing otitis media with erosion [...] Organization Details Last Modified Time Details Appointments Otology Referral 30 2024 01:00P M PAKO STUART MD Not available Not available Not available Lab None recorded. Referral None recorded. Procedures None recorded. Surgeries None recorded. Imaging None recorded. Medication Orders TobraDex 0.3 %-0.1 % eye drops,woo pension 2024 025 [facility] [address] [employer], [address] [place], [address], 02/01/2025 11:16:22 Patient TargetsNo targets recorded. Patient InstructionsNo instructions recorded. Reason for Referral None Reported. Results Created Date Observation Date Name Description Value Unit Range Abnormal Flag Note LastModifiedBy Organization Detail LastModifiedTime 02/02/2001/31/2025 CT, tempo ral bone, w/o contr ast No observ ation record ed. [facility] ([facility]) [address], [place], [address], 02/02/2025 10:16:19 02/09/2001/31/2025 CT, tempo ral bone, w/o contr ast No observ ation record ed. [email or web address] Not Available 01/19 10:39:51 Result Notes None recorded. Problems Name Problem SNOMED Code Status Onset Date Resolution Date Notes Provider Name and Address Organization Details Recorded Time Marginal perforation of right tympanic membrane 5196875842432 109 Active 2024 PAYTON OVALLES MD [address] [address], [place], [address], [facility] - [facility] 5 11:14:41 Central perforation of left tympanic membrane 2723713267011 107 Active 2024 PAYTON OVALLES MD [address] [address], [place], [address], [facility] - [facility] 5 11:14:46 Central perforation of right tympanic membrane 8296928281349 101 Active 2024 PAYTON OVALLES MD [address] [address], [place], [address], [facility] - [facility] [place] 11:14:51 Mixed conductive and sensorineur al hearing loss, bilateral 598609323 Active 2024 ACACIA KAHN, AuD [address] [facility] [place], [place], [address], [facility] - [facility] 11:36:16 Problem Notes None recorded. Procedures Surgical History Date Name Laterality Status Provider Name and Address Organization Details Recorded Time 02/02/20 25 Tympanometry - 97951 completed ACACIA KAHN, AuD [address] [facility] [place],[address], [place], [address], [facility] - [facility] [place] 02/01/2025 11:31:13 02/02/20 25 Air & Bone Audio - 47989 completed ACACIA KAHN AuD [address] [facility] [place], [place], [address], [facility] - [facility] [place] 02/01/2025 11:30:45 Imaging Results Imaging Date Name Status LastModified by Organiz ation Details LastModified Time 01/31/2025 CT, temporal bone, w/o contrast completed [facility] ([facility]) [address] [facility] [address], [place], [address], 02/02/2025 10:16:19 01/31/2025 CT, temporal bone, w/o contrast [facility] Information not available 02/08/2025 10:39:51 Procedure Notes None recorded. Medical Equipment None Reported. Medications Name Sig Start Date Stop Date Status Note LastModified by Organization Details LastModified Time ofloxacin 0.3 % eye drops PLACE THREE DROP IN THE RIGHT EYE FOUR TIMES DAILY FOR FIVE DAYS 02/01 completed Not Available Not Available Not Available acetaminophe n 500 mg tablet TAKE 1 TABLET ORALLY EVERY 6 HOURS NEEDED FOR FEVER OR PAIN active Not Available Not Available No t Available cephalexin 500 mg capsule TAKE ONE CAPSULE BY MOUTH FOUR TIMES DAILY 02/01 completed Not Available Not Available Not Available ibuprofen 400 mg tablet TAKE 1 TABLET ORALLY 3 TIMES A DAY NEEDED FOR FEVER OR PAIN active Not Available Not Available No t Available ibuprofen 600 mg tablet TAKE 1 TABLET BY MOUTH 3 TIMES A DAY NEEDED FOR PAIN active Not Available Not [...] Not Available Not Available No t Available medroxyproge sterone 150 mg/mL intramuscula r syringe INJECT 1 ML INTO THE MUSCLE EVERY 3 (THREE) MONTHS active Not Available Not Available No t Available Vitals Date Recorded Body height Body mass index (BMI) Body weight Provider Name and Address Organization Details Last Updated DateTime 02/01/2025 157.48 cm 20.1 kg/m2 72277.16 g Oly Melissa [place] - [facility] 02/01/2025 10:45:54 Social History None recorded. Functional Status None recorded. Mental Status None recorded. Family History Nothing Reported. Medical History No medical history recorded. Gynecological HistoryNo gynecological history recorded. Obstetrics History GPAL:G 0 P 0 0 0 0 Past Encounters Encounter ID Performer Location Encounter Start Date Encounter Closed Date Diagnosis/Indication Diagnosis SNOMED-CT Code Diagnosis ICD10 Code Diagnosis Note [id number] PAYTON OVALLES MD [facility] on [address] [place] [address] 02/01/2025 10:33:32 02/01/2025 12:10:44 Central perforation of left tympanic membrane 3506717847 065862 H72.02 Central pe rforation of right tympanic membrane 0997627087 322585 H72.01 Mixed cond uctive and sensorineural hearing loss, bilateral 716514480 H90.6 Audiologic al evaluation results:Ri ght ear:{{Norm [...] Recorded Advance Directives Directive None Recorded Payers Insurance Date Sequence Insurance Name Policy Number Policy Sanchez Covered Member ID Sanchez Member ID Guarantor Name 02/19/2025 1 [place] [facility] Ursula Alexandre [id number] Ursula Alexandre Notes Date Note Type Note Provider Name and Address Organization Details Recorded Time 02/01/2025 text/html 39-year-old fembinta moreira presents today for ear painED last night in [place] with hearing loss and painShe had a [...] worse on the right PAYTON OVALLES MD [address] [place] [address], [place], [address], [facility] - [facility] 02/03/2025 16:54:07 OBGyn Episode No OBEpisode recorded.
[2025-03-02 17:59] LABS: Bacterial Vaginosis PCR NEGATIVE (Negative); Candida Group PCR NOT DETECTED (Not Detect); Candida glab krusei PCR NOT DETECTED (Not Detect); Trichomonas vaginalis PCR NOT DETECTED (Not Detect)
[2025-03-02 21:48] LABS: CT PCR NOT DETECTED (Not Detect.); NG PCR NOT DETECTED (Not Detect.)
[2025-03-09 15:10] LABS: HPV Genotype 16 Negative (Negative); HPV Genotype 18 Negative (Negative); HPV High Risk Negative (Negative)
== END 2025-03-02 08:19 | disposition home or self-care (01) ==
LOC: HO.LNP 08:18
PROVIDERS: Visit Provider Advanced Practice Midwife
DX: N93.9 Abnormal uterine and vaginal bleeding, unspecified (principal); R30.0 Dysuria
CPT/HCPCS: 81003; 81025; 81515; 87491; 87591; 87626; 88175; 99212

== ENCOUNTER 2025-03-02 09:12 | Outpatient (REF) | payer MEDICAID, SELFPAY ==
--- OUTSIDE RECORDS SUMMARY | 2025-03-02 09:43 | XMS_ITS | Clinical Summary ---
Author Organization [facility] Address [address] [place] [address] Care Team Providers Care Harness Maker Name Role Phone Kaylin Thayer FLOUR BLENDER HELPER-C Primary Care Provider [phone] Source Comments PLEASE NOTE, if this patient [...] Description 02/15/2025 3:00 PM EDT Office Visit [address] [address] Kaylin Thayer FNP-C Routine general medical examination at a health care facility (Primary Dx); Irregular menstrual bleeding; Dysuria; Encounter for Depo-Provera contraception from Last 3 Months Immunizations Immunization Administration Dates Next Due COVID-19,SARS-COV-2 VACCINE, UNSPECIFIED (US Adm in) 06/07/2024 HEP B, PED/ADOL 06/07/2024,02/03/2024 INFLUENZA, SEASONAL, INJECTABLE 02/03/2024 IPV (IPOL) 02/03/2024 Influenza (FLUBLOK),recombinant,injectable,preservative Free 06/23/2024 Three Ring COVID-19 VACCINE 02/03/2024 MMR (MMR II/Priorix) 06/07/2024,02/03/2024 Emu Messenger COVID-19 (Comirnaty), Mrna, Lnp-s, Pf, Chidi-sucrose, 30 [...] Description 04/01/2025 10:40 AM EDT Office Visit [address] [phone] [place], [place] [address] [place] [address] 05/11/2025 2:20 PM EDT Office Visit [address] [phone] Health Maintenance Due Date Last Done Comments HPV Screening 1986 Pap + HPV 1986 Cervical Cancer Screening 2007 Pap Smear 2007 [id number] INJ 05/10/2025 02/15/2025 Relationship Safety Screening/Counseling 06/23/2025 [...] 11/19/2024, 06/23 Depression Annual Screen Completed 11/19/2024 [id number] Completed 11/19/2024, 05/20, 02/03/2024 Cervical Ablation/Cold-Knife Conization [...] included. 02/17/2025 3:00 AM EDT Kaylin Nicholsikari FLOUR BLENDER HELPER-C SCAN IMAGING Final Res ult * THYROID CASCADING REFLEX PANEL (02/15/2025 3:22 PM EDT) Pathologist [facility] TSH 1.64 0.40 - 4.50 mIU/L [employer] Comment: ?Reference Range ?> or = 20 Years ??0.40-4.50 ? Ranges ?First trimester ?0.26-2.66 ?Second trimester ?? 0.55-2.73 ?Third trimester ?0.43-2.91 Blood Blood / Unknown 02/15/2025 3 :22 PM EDT 02/15/2025 3:22 PM EDT Narrative [facility] - 02/16/2025 5:14 PM EDT FASTING:UNKNOWN Kaylin Thayer FLOUR BLENDER HELPER-C LAB - BLOOD DRAW Edited R esult - Final [facility] [address] [place] [address], [employer] [address] [place] [address] * BLOOD COUNT COMPLETE AUTO&AUTO DIFRNTL WBC (02/15/2025 3:22 PM EDT) Pathologist [facility] WHITE BLOOD CELL COUNT 6.5 3.8 - 10.8 Thousand/ uL [employer] RED BLOOD CELL COUNT 4.03 3.80 - 5.10 Million/u L [employer] HEMOGLOBIN 11.7 11.7 - 15.5 g/dL [employer] HEMATOCRIT 36.2 35.0 - 45.0 % [employer] MCV 89.8 80.0 - 100.0 fL [employer] MCH 29.0 27.0 - 33.0 pg [employer] MCHC 32.3 32.0 - 36.0 g/dL [employer] Comment: For adults, a slight decrease in the calculated MCHC value (in the range of 30 to 32 g/dL) is most likely not clinically significant; however, it should be interpreted with caution in correlation with other red cell parameters and the patient's clinical condition. RDW 11.4 11.0 - 15.0 % [employer] PLATELET COUNT 325 140 - 400 Thousand/ uL [employer] MPV 10.7 7.5 - 12.5 fL [employer] ABSOLUTE NEUTROPHILS 3,757 1,500 - 7,800 cells/uL [employer] ABSOLUTE LYMPHOCYTES 2,191 850 - 3,900 cells/uL [employer] ABSOLUTE MONOCYTES 429 200 - 950 cells/uL [employer] ABSOLUTE EOSINOPHILS 72 15 - 500 cells/uL [employer] ABSOLUTE BASOPHILS 52 0 - 200 cells/uL [employer] NEUTROPHILS PCT 57.8 % QUES T PositiveID LYMPHOCYTES 33.7 % [facility] MONOCYTES 6.6 % [facility] [employer] EOSINOPHILS 1.1 % [facility] BASOPHILS 0.8 % [employer] Blood Blood / Unknown 02/15/2025 3 :22 PM EDT 02/15/2025 3:22 PM EDT Narrative [facility] - 02/16/2025 5:14 PM EDT FASTING:UNKNOWN Kaylin Thayer FLOUR BLENDER HELPER-C LAB - BLOOD DRAW Edited R esult - Final [facility] [employer] [address] [address], [employer] [address] [place] [address] * HEMOGLOBIN GLYCOSYLATED A1C (02/15/2025 3:22 PM EDT) HEMOGLOBIN A1C 5.2 <5.7 % [employer] Comment: For the purpose of screening for the presence of diabetes: <5.7% ? Consistent with the absence of diabetes 5.7-6.4% ?Consistent with increased risk for diabetes ?(prediabetes) > or =6.5% ??Consistent with diabetes This assay result is consistent with a decreased risk of diabetes. Currently, no consensus exists regarding use of hemoglobin A1c for diagnosis of diabetes in children. According to [place] Diabetes Association (ADA) guidelines, hemoglobin A1c <7.0% represents optimal control in non- diabetic patients. Different metrics may apply to specific patient populations. Standards of Medical Care in Diabetes(ADA). ?? Blood Blood / Unknown 02/15/2025 3 :22 PM EDT 02/15/2025 3:22 PM EDT Narrative [facility] - 02/16/2025 5:14 PM EDT FASTING:UNKNOWN Genarochelitabirgit Jeovany FLOUR BLENDER HELPER-C LAB - BLOOD DRAW Final Re sult [facility] [address] [address], [employer] [address] [address] * (ABNORMAL) LIPID PANEL (02/15/2025 3:22 PM EDT) [facility] Signature CHOLESTEROL, TOTAL 170 <200 mg/dL [facility] HDL CHOLESTEROL 47(L) > OR = 50 mg/dL [employer] [facility] TRIGLYCERIDES 65 <150 mg/dL [facility] LDL-CHOLESTEROL 108(H) 99 mg/dL (calc) [facility] Comment: Reference range: <100 Desirable range <100 mg/dL for primary prevention; ?? <70 mg/dL for patients with CHD or diabetic patients with > or = 2 CHD risk factors. LDL-C is now calculated using the Enoch-Ashley calculation, which is a validated novel method providing better accuracy than the Friedewald equation in the estimation of LDL-C. Enoch SS et al. TYLER. 2013;310(19): 3000-0251 (http://education.SalesWarp/faq/XBD484) CHOL/HDLC RATIO 3.6 <5.0 (calc) [employer] NON-HDL CHOLESTEROL 123 <130 mg/dL (calc) [employer] Comment: For patients with diabetes plus 1 major ASCVD risk factor, treating to a non-HDL-C goal of <100 mg/dL (LDL-C of <70 mg/dL) is considered a therapeutic option. Blood Blood / Unknown 02/15/2025 3 :22 PM EDT 02/15/2025 3:22 PM EDT Narrative [facility] - 02/16/2025 5:14 PM EDT FASTING:UNKNOWN Kaylin Thayer FLOUR BLENDER HELPER-C LAB - BLOOD DRAW Final Re sult [facility] [address] [address], [facility] [address] [place] [address] * COMPREHENSIVE METABOLIC PANEL (02/15/2025 3:22 PM EDT) Pathologist [facility] GLUCOSE 93 65 - 99 mg/dL [facility] Comment: ?Fasting reference interval UREA NITROGEN (BUN) 22 7 - 25 mg/dL [facility] CREATININE (blood) 0.51 0.50 - 0.97 mg/dL [facility] EGFR 122 > OR = 60 mL/min/1. 73m2 [facility] BUN/CREATININE RATIO SEE NOTE: [facility] Comment: ?? Not Reported: BUN and Creatinine are within ?? reference range. ? SODIUM 136 135 - 146 mmol/L [facility] POTASSIUM 4.9 3.5 - 5.3 mmol/L [facility] CHLORIDE 105 98 - 110 mmol/L [facility] CARBON DIOXIDE 25 20 - 32 mmol/L [facility] CALCIUM 9.3 8.6 - 10.2 mg/dL [facility] PROTEIN, TOTAL 7.1 6.1 - 8.1 g/dL [facility] ALBUMIN 4.4 3.6 - 5.1 g/dL [facility] GLOBULIN 2.7 1.9 - 3.7 g/dL (calc) [facility] ALBUMIN/GLOBULI N RATIO 1.6 1.0 - 2.5 (calc) [facility] BILIRUBIN, TOTAL 0.4 0.2 - 1.2 mg/dL [facility] ALKALINE PHOSPHATASE 47 31 - 125 U/L [facility] AST 17 10 - 30 U/L [facility] ALT 14 6 - 29 U/L [facility] Blood Blood / Unknown 02/15/2025 3 :22 PM EDT 02/15/2025 3:22 PM EDT Narrative [facility] - 02/16/2025 5:14 PM EDT FASTING:UNKNOWN [facility] Jeovany FNP-C LAB - BLOOD DRAW Edited R esult - Final Performing Organization Address City/[facility]/ZIP Co de Phone Number [facility] [address] [address], [facility] [address] [address] * HCG URINE MCKESSON (POCT) (02/15/2025 3:12 PM EDT) URINE HCG NEGATIVE NEGATIVE [facility]- BACK OFFICE POCT INTERNAL CONTROL PASS PASS [facility]- BACK OFFICE POCT Urine Urine specimen / Unknown 02/15/2025 3:12 PM EDT [facility] Morgan SolarP-C LAB - NO BLOOD DRAW Final Result Performing Organization Address City/[facility]/ZIP Co de Phone Number [facility]- BACK OFFICE POCT * (ABNORMAL) URINALYSIS, MULTISTIX (POCT) (02/15/2025 3:11 PM EDT) URINE GLUCOSE NEGATIVE NEGATIVE [facility]- BACK OFFICE POCT URINE BILIRUBIN NEGATIVE NEGATIVE [facility]- BACK OFFICE POCT URINE KETONES NEGATIVE NEGATIVE [facility]- BACK OFFICE POCT URINE SPECIFIC GRAVITY 1.030(A) <=1.005 - >=1.030 [facility]- BACK OFFICE POCT URINE BLOOD TRACE HEMOLYZED(A) NEGATIVE [facility] BACK OFFICE POCT URINE PH 5.5 5.0 - 8.5 [facility]- BACK OFFICE POCT URINE [...] specimen / Unknown 02/15/2025 3:11 PM EDT [employer] Jeovany FLOUR BLENDER HELPER-C LAB - NO BLOOD DRAW Final Result Performing Organization Address City/[facility]/ZIP Co de Phone Number [facility] OFF[facility] POCT * [facility] VAGINIT[facility] PLUS, TMA (02/15/2025 2:55 PM EDT) Pathologist [facility](R) ADV BACTERIAL VAGINOSIS (BV), TMA NEGATIVE NEGATIVE [facility] CAROL SPECIES NOT DETECTED NOT DETECTED [facility] CAROL GLABRATA NOT DETECTED NOT DETECTED [facility] COMMENT [facility] TRICHOMONAS VAGINALIS (TV), TMA NOT DETECTED NOT DETECTED [facility] CHLAMYDIA TRACHOMATIS RNA, TMA NOT DETECTED NOT DETECTED [facility] NEISSERIA GONORRHOEAE RNA, TMA NOT DETECTED NOT DETECTED [facility] COMMENT [facility] Vaginal Vaginal structure / Unknown 02/15/2025 2:55 PM EDT 02/16/2025 10:40 AM EDT Narrative [facility] - 02/16/2025 7:32 PM EDT Carol species C. albicans, C. tropicalis, C. parapsilosis, and/or C. dubliniensis can be detected, but not differentiated, in the Carol spp. result. For additional information, please refer to https://education.CloudPhysics.SecondHome/faq/PPW745 (This link is being provided for information/ educational purposes only.) [employer]P-C LAB - NO BLOOD DRAW Final Result Performing Organization Address City/[facility]/ZIP Co de Phone Number [facility] [address] [place] [address], [facility] [address] [address] * REFERRAL SCANNED DOCUMENT (02/01/2025 3:00 AM EDT) Only the most recent of2 resultswithin the time period is included. 02/01/2025 3:00 AM EDT Kaylin Thayer FLOUR BLENDER HELPER-C SCAN REFERRAL Final Res ult * OTHER ORDERS SCANNED DOCUMENT (12/21/2024 3:00 AM EST) 12/21/2024 3:00 AM EST Chma Provider Default SCAN OTHER ORDERS Final Re sult * HEPATITIS C AB W/RFLX HCV RNA, QT, RT PCR (06/23/2024 2:26 PM EDT) HEPATITIS C ANTIBODY NON-REACT EMILE NON-REACT EMILE [employer] [facility] Comment: HCV antibody was non-reactive. There is no laboratory evidence of HCV infection. In most cases, no further action is required. However, if recent HCV exposure is suspected, a test for HCV RNA (test code 35395) is suggested. For additional information please refer to http://education.BemDireto/faq/THN26s9 (This link is being provided for informational/ educational purposes only.) Blood Blood / Unknown 06/23/2024 2 :26 PM EDT 06/23/2024 2:27 PM EDT Narrative [facility] - 07/03/2024 1:31 AM EDT SPLIT 06/23/2024 FROM [id number] COLLECTION KIT GIVEN TO PATIENT. PATIENT ADVISED TO RETURN. Teodora Gualyssa FLOUR BLENDER HELPER LAB - BLOOD DRAW Edited Result - Final [facility] [address] [place] [address], [facility] [address] [address] * HIV 1/2 AG & AB W/RFLX (4TH GEN) (06/23/2024 2:26 PM EDT) HIV AG/AB, 4TH GEN NON-REAC TIVE NON-REAC TIVE [employer] Comment: HIV-1 antigen and HIV-1/HIV-2 antibodies were [...] ?? For additional information please refer to http://education.BemDireto/faq/VLS536 (This link is being provided for informational/ educational purposes only.) The performance of this assay has not been clinically validated in patients less than 2 years old. Blood Blood / Unknown 06/23/2024 2 :26 PM EDT 06/23/2024 2:27 PM EDT Narrative [facility] - 07/03/2024 1:31 AM EDT SPLIT 06/23/2024 FROM [id number] COLLECTION KIT GIVEN TO PATIENT. PATIENT ADVISED TO RETURN. [facility] - BLOOD DRAW Final Result [facility] [address] [place] [address], [employer] [address] [address] * (ABNORMAL) HEPATITIS B SURF ANTIBODY HBSAB (06/23/2024 2:26 PM EDT) HEPATITIS B SURFACE ANTIBODY QL REACTIVE( A) NON-REACT EMILE [employer] [facility] Blood Blood / Unknown 06/23/2024 2 :26 PM EDT 06/23/2024 2:27 PM EDT Narrative [facility] - 07/03/2024 1:31 AM EDT SPLIT 06/23/2024 FROM [id number] COLLECTION KIT GIVEN TO PATIENT. PATIENT ADVISED TO RETURN. Teodora Jael FLOUR BLENDER HELPER LAB - BLOOD DRAW Edited Result - Final [facility] [address] [address], [facility] [address] [place] [address] from Last 3 Months or Most Recently Relevant to Health Maintenance Insurance [facility] Care Teams Harness Maker Relationship Specialty Start Date End Date Kaylin Thayer FNP-C [address] [place] [address] PCP - General Internal Medicine 12/02/24
== END 2025-03-02 09:13 | disposition home or self-care (01) ==
LOC: HO.LAB 09:12
PROVIDERS: Visit Provider Advanced Practice Midwife
DX: Z13.89 Encounter for screening for other disorder (principal)

== ENCOUNTER 2025-04-13 11:33 | Outpatient (REF) | payer MEDICAID, SELFPAY ==
--- NOTE | ~2025-04-13 | US_ITS ---
CLINICAL HISTORY: N93.9 - Abnormal uterine and vaginal bleeding, unspecified US pelvis transvaginal and transabdominal Comparison: None provided Findings: The uterus is normal in size, measuring 6.7 cm in length. The endometrial stripe is normal in thickness at 1.0 cm. The right ovary measures 3.2 x 3.1 x 2.4 cm. The left ovary measures 1.5 x 1.0 x 1.6 cm. 2.3 cm simple right ovarian follicular cyst is present. No free fluid is seen in the pelvis. IMPRESSION: 1. 2.3 cm simple right ovarian follicular cyst. No follow-up is needed. This document has been electronically signed by: Kristine Lopez on 04/14/2025 08:31:32
--- OUTSIDE RECORDS SUMMARY | 2025-04-13 13:45 | XMS_ITS | Clinical Summary ---
Author Organization [facility] Address [address] [place] [address] Care Team Providers Care Operator Technician Name Role Phone Kaylin Thayer WIRING TECHNICIAN-C Primary Care Provider [phone] Source Comments PLEASE NOTE, if this patient [...] Description 02/15/2025 3:00 PM EDT Office Visit [address] [phone] Kaylin Thayer FNP-C from Last 3 Months Immunizations Immunization Administration Dates Next Due COVID-19,SARS-COV-2 VACCINE, UNSPECIFIED (US Adm in) 06/07/2024 HEP B, PED/ADOL 06/07/2024,02/03/2024 INFLUENZA, SEASONAL, INJECTABLE 02/03/2024 IPV (IPOL) 02/03/2024 Influenza (FLUBLOK),recombinant,injectable,preservative Free 06/23/2024 Dhingana COVID-19 VACCINE 02/03/2024 MMR (MMR II/Priorix) 06/07/2024,02/03/2024 [place]a COVID-19 (Comirnaty), Mrna, Lnp-s, Pf, Chidi-sucrose, 30 [...] Safety and Environment Answer Date Chong rded How often does anyone, inclu ding family and friends, physically hurt you? 1 06/23/2024 Utilities Answer Date Recorded Utilities [...] 76 02/15/2025 2:32 PM EDT Temperature 36.7 C (98.1 F) 02/15/2025 2:32 PM EDT Respiratory Rate 16 02/15/2025 2:32 PM EDT [...] Description 05/11/2025 2:20 PM EDT Office Visit [facility] [address] [place] [phone] Health Maintenance Due Date Last Done Comments HPV Screening 1986 Pap + HPV 1986 Cervical Cancer Screening 2007 Pap Smear 2007 TTTD-Xpmy-lyszgrf INJ 05/10/2025 02/15/2025 Relationship Safety Screening/Counseling 06/23/2025 06/23/2024 Annual Wellness (Adult): Ind icated (All Coverage) 02/15/2026 02/15/2025 Anxiety Screening 02/15/2026 02/15/2025 Tobacco Screening 02/15/2026 02/15/2025 Hypertension Screening (#1) 02/15/2028 Diabetes Screening 02/16/2028 02/15/2025, 02/15/2025 Imm-DTaP/Tdap/Td (2 - Td or Tdap) 06/07/2034 , 02/03/2024 Imm-Hepatitis B Discontinued 06/07/2024, 02/03/2024 HIV Screening Completed 06/23/2024 Hepatitis B Screening Completed 06/23/2024, Hepatitis C Screening Completed 06/23/2024 Imm-Influenza Completed 06/23/2024, 02/03/2024 Alcohol and Drug Screen Completed 11/19/2024, 06/23 Depression Annual Screen Completed 11/19/2024 [id number] Completed 11/19/2024, 05/20, 02/03/2024 Cervical Ablation/Cold-Knife Conization [...] REFERRAL SCANNED DOCUMENT 02/01/2025 3:00 AM EDT HIV 1/2 AG & AB W/RFLX (4TH [...] 3:00 AM EDT) Only the most recent of5 resultswithin the time period is included. 02/17/2025 3:00 AM EDT Kaylin Thayer WIRING TECHNICIAN-C SCAN IMAGING Final Res ult * THYROID CASCADING REFLEX PANEL (02/15/2025 3:22 PM EDT) TSH 1.64 0.40 - 4.50 mIU/L [facility] Comment: Reference Range > or = 20 Years 0.40-4.50 Ranges First trimester 0.26-2.66 Second trimester 0.55-2.73 Third trimester 0.43-2.91 Blood Blood / Unknown 02/15/2025 3 :22 PM EDT 02/15/2025 3:22 PM EDT Narrative [facility] [employer] [facility] - 02/16/2025 5:14 PM EDT FASTING:UNKNOWN Kaylin Thayer WIRING TECHNICIAN-C LAB - BLOOD DRAW Lior douglas - Final [facility] [address] [address], [employer] [facility] [address] [place] [address] * BLOOD COUNT COMPLETE AUTO&AUTO DIFRNTL WBC (02/15/2025 3:22 PM EDT) Pathologist [facility] WHITE BLOOD CELL COUNT 6.5 3.8 - 10.8 Thousand/ uL [facility] RED BLOOD CELL COUNT 4.03 3.80 - 5.10 Million/u L [facility] HEMOGLOBIN 11.7 11.7 - 15.5 g/dL [facility] HEMATOCRIT 36.2 35.0 - 45.0 % [facility] MCV 89.8 80.0 - 100.[address] [facility] MCH 29.0 27.0 - 33.0 pg [facility] MCHC 32.3 32.0 - 36.0 g/dL [facility] Comment: For adults, a slight decrease in the calculated MCHC value (in the range of 30 to 32 g/dL) is most likely not clinically significant; however, it should be interpreted with caution in correlation with other red cell parameters and the patient's clinical condition. RDW 11.4 11.0 - 15.0 % [facility] PLATELET COUNT 325 140 - 400 Thousand/ uL [facility] MPV 10.7 7.5 - 12.5 fL [facility]mag [place] [employer] [facility] ABSOLUTE NEUTROPHILS 3,757 1,500 - 7,800 cells/uL [facility] ABSOLUTE LYMPHOCYTES 2,191 850 - 3,900 cells/uL [facility] ABSOLUTE MONOCYTES 429 200 - 950 cells/uL [facility]mag [facility] ABSOLUTE EOSINOPHILS 72 15 - 500 cells/uL [facility]mag [facility] ABSOLUTE BASOPHILS 52 0 - 200 cells/uL [facility]mag [facility] NEUTROPHILS PCT 57.8 % [facility] LYMPHOCYTES 33.7 % [facility] MONOCYTES 6.6 % [facility] EOSINOPHILS 1.1 % [facility] BASOPHILS 0.8 % [facility] Blood Blood / Unknown 02/15/2025 3 :22 PM EDT 02/15/2025 3:22 PM EDT Narrative [facility] - 02/16/2025 5:14 PM EDT FASTING:UNKNOWN Jose Jeovany WIRING TECHNICIAN-C LAB - BLOOD DRAW Edited R esult - Final Performing Organization Address City/[facility]/ZIP Co de Phone Number youmag [address] [address], [employer] [address] [address] * HEMOGLOBIN GLYCOSYLATED A1C (02/15/2025 3:22 PM EDT) HEMOGLOBIN A1C 5.2 <5.7 % [facility] Comment: For the purpose of screening for the presence of diabetes: <5.7% Consistent with the absence of diabetes 5.7-6.4% Consistent with increased risk for diabetes (prediabetes) > or =6.5% Consistent with diabetes This assay result is consistent with a decreased risk of diabetes. Currently, no consensus exists regarding use of hemoglobin A1c for diagnosis of diabetes in children. According to [place] [employer] (ADA) guidelines, hemoglobin A1c <7.0% represents optimal control in non- diabetic patients. Different metrics may apply to specific patient populations. Standards of Medical Care in Diabetes(ADA). Blood Blood / Unknown 02/15/2025 3 :22 PM EDT 02/15/2025 3:22 PM EDT Narrative [facility] - 02/16/2025 5:14 PM EDT FASTING:UNKNOWN [employer] Lizarragari WIRING TECHNICIAN-C LAB - BLOOD DRAW Final Re sult Performing Organization Address City/[facility]/ZIP Co de Phone Number youmag [address] [address], [employer] [address] [address] * (ABNORMAL) LIPID PANEL (02/15/2025 3:22 PM EDT) CHOLESTEROL, TOTAL 170 <200 mg/dL [facility] HDL CHOLESTEROL 47(L) > OR = 50 mg/dL [facility] TRIGLYCERIDES 65 <150 mg/dL youmag [facility] LDL-CHOLESTEROL 108(H) 99 mg/dL (calc) youmag [facility] Comment: Reference range: <100 Desirable range <100 mg/dL for primary prevention; <70 mg/dL for patients with CHD or diabetic patients with > or = 2 CHD risk factors. LDL-C is now calculated using the Robbie calculation, which is a validated novel method providing better accuracy than the Friedewald equation in the estimation of LDL-C. Enoch HOFFMAN et al. TYLER. 2013;310(19): 5790-4637 (http://education.Youth1 Media/faq/LJQ646) CHOL/HDLC RATIO 3.6 <5.0 (calc) [facility] NON-HDL CHOLESTEROL 123 <130 mg/dL (calc) youmag [facility] Comment: For patients with diabetes plus 1 major ASCVD risk factor, treating to a non-HDL-C goal of <100 mg/dL (LDL-C of <70 mg/dL) is considered a therapeutic option. Blood Blood / Unknown 02/15/2025 3 :22 PM EDT 02/15/2025 3:22 PM EDT Narrative [facility] - 02/16/2025 5:14 PM EDT FASTING:UNKNOWN Kaylin Thayer WIRING TECHNICIAN-C LAB - BLOOD DRAW Final Re sult [facility] [address] [address], [employer] [address] [address] * COMPREHENSIVE METABOLIC PANEL (02/15/2025 3:22 PM EDT) Pathologist [facility] GLUCOSE 93 65 - 99 mg/dL youmag [facility] Comment: Fasting reference interval UREA NITROGEN (BUN) 22 7 - 25 mg/dL youmag [facility] CREATININE (blood) 0.51 0.50 - 0.97 mg/dL [facility] EGFR 122 > OR = 60 mL/min/1. 73m2 youmag [facility] BUN/CREATININE RATIO SEE NOTE: youmag [facility] Comment: Not Reported: BUN and Creatinine are within reference range. SODIUM 136 135 - 146 mmol/L youmag [facility] POTASSIUM 4.9 3.5 - 5.3 mmol/L youmag [facility] CHLORIDE 105 98 - 110 mmol/L youmag [facility] CARBON DIOXIDE 25 20 - 32 mmol/L youmag [facility] CALCIUM 9.3 8.6 - 10.2 mg/dL youmag [facility] PROTEIN, TOTAL 7.1 6.1 - 8.1 g/dL youmag [facility] ALBUMIN 4.4 3.6 - 5.1 g/dL youmag [facility] GLOBULIN 2.7 1.9 - 3.7 g/dL (calc) youmag [facility] ALBUMIN/GLOBULI N RATIO 1.6 1.0 - 2.5 (calc) youmag [facility] BILIRUBIN, TOTAL 0.4 0.2 - 1.2 mg/dL youmag [facility] ALKALINE PHOSPHATASE 47 31 - 125 U/L youmag [facility] AST 17 10 - 30 U/L youmag [facility] ALT 14 6 - 29 U/L youmag [facility] Blood Blood / Unknown 02/15/2025 3 :22 PM EDT 02/15/2025 3:22 PM EDT Narrative [facility] - 02/16/2025 5:14 PM EDT FASTING:UNKNOWN [employer]chelita[employer]energyJeovany WIRING TECHNICIAN-C LAB - BLOOD DRAW Edited R esult - Final youmag [address] [address], [employer] [address] [address] * HCG URINE MCKESSON (POCT) (02/15/2025 3:12 PM EDT) URINE HCG NEGATIVE NEGATIVE [facility] BACK OFF[facility] POCT INTERNAL CONTROL PASS PASS [facility] POCT Urine Urine specimen / Unknown 02/15/2025 3:12 PM EDT [employer] WIRING TECHNICIAN-C LAB URINE AMBULATORY Luz l Result [facility] POCT * (ABNORMAL) URINALYSIS, MULTISTIX (POCT) (02/15/2025 3:11 PM EDT) URINE GLUCOSE NEGATIVE NEGATIVE [facility]- BACK OFFICE POCT URINE BILIRUBIN NEGATIVE NEGATIVE [facility]- BACK OFFICE POCT URINE KETONES NEGATIVE NEGATIVE [facility]- BACK OFFICE POCT URINE SPECIFIC GRAVITY 1.030(A) <=1.005 - >=1.030 [facility]- BACK OFFICE POCT URINE BLOOD TRACE HEMOLYZED(A) NEGATIVE [facility]- BACK OFFICE POCT URINE PH 5.5 5.0 - 8.5 [facility]- BACK OFFICE POCT URINE PROTEIN 30 (1+)(A) Negative [facility]- BACK OFFICE POCT URINE UROBILINOGEN 0.2 0.2 - 1.0 E.U./dL [facility]- BACK OFFICE POCT URINE NITRITE NEGATIVE NEGATIVE [facility]- BACK OFFICE POCT URINE LEUKOCYTES NEGATIVE NEGATIVE [facility]- BACK OFFICE POCT URINE COLOR YELLOW STRAW, YELLOW [facility]- BACK OFFICE POCT ODOR URINE Normal Normal [facility]- BACK OFFICE POCT CLARITY OF URINE CLEAR CLEAR [facility]- BACK OFFICE POCT Urine Urine specimen / Unknown 02/15/2025 3:11 PM EDT [facility] Jeovany WIRING TECHNICIAN-C LAB URINE AMBULATORY Luz l Result [facility]- BACK OFFICE POCT * SURESWAB ADVANCED VAGINITIS PLUS, TMA (02/15/2025 2:55 PM EDT) SURESWAB(R) ADV BACTERIAL VAGINOSIS (BV), TMA NEGATIVE NEGATIVE you[facility] CAROL SPECIES NOT DETECTED NOT DETECTED youmag [facility] CAROL GLABRATA NOT DETECTED NOT DETECTED youmag [facility] COMMENT youmag [facility] TRICHOMONAS VAGINALIS (TV), TMA NOT DETECTED NOT DETECTED youmag [facility] CHLAMYDIA TRACHOMATIS RNA, TMA NOT DETECTED NOT DETECTED youmag [facility] NEISSERIA GONORRHOEAE RNA, TMA NOT DETECTED NOT DETECTED youmag [facility] COMMENT youmag [facility] Vaginal Vaginal structure / Unknown 02/15/2025 2:55 PM EDT 02/16/2025 10:40 AM EDT Narrative [facility] - 02/16/2025 7:32 PM EDT Carol species C. albicans, C. tropicalis, C. parapsilosis, and/or C. dubliniensis can be detected, but not differentiated, in the Carol spp. result. For additional information, please refer to https://Talend.StyleUp/faq/KSU975 (This link is being provided for information/ educational purposes only.) [employer] WIRING TECHNICIAN-C LAB - MICROBIOLOGY AMBULA TORY Final Result [facility] [address] [place] [id number], [employer] [address] [place] [phone] * REFERRAL SCANNED DOCUMENT (02/01/2025 3:00 AM EDT) 02/01/2025 3:00 AM EDT [employer] WIRING TECHNICIAN-C SCAN REFERRAL Final Res ult * HEP C AB W/RLFX HCV RNA (for all adults >/= 18 yrs, all women, and all unaccompanied minors) (06/23/2024 2:26 PM EDT) HEPATITIS C ANTIBODY NON-REACT EMILE NON-REACT EMILE [facility] Comment: HCV antibody was non-reactive. There is no laboratory evidence of HCV infection. In most cases, no further action is required. However, if recent HCV exposure is suspected, a test for HCV RNA (test code 76648) is suggested. For additional information please refer to http://Talend.StyleUp/faq/WYD59m7 (This link is being provided for informational/ educational purposes only.) Blood Blood / Unknown 06/23/2024 2 :26 PM EDT 06/23/2024 2:27 PM EDT Narrative [facility] - 07/03/2024 1:31 AM EDT SPLIT 06/23/2024 FROM [id number] COLLECTION KIT GIVEN TO PATIENT. PATIENT ADVISED TO RETURN. [facility] - BLOOD DRAW Edited Result - Final Performing Organization Address [facility]/ZIP Co de Phone Number [facility] [address] [address], [employer] [address] [address] * HIV 1/2 AG & AB W/RFLX (Required for 13 yrs to 64 yrs) (06/23/2024 2:26 PM EDT) HIV AG/AB, 4TH GEN NON-REAC TIVE NON-REAC TIVE [facility] Comment: HIV-1 antigen and HIV-1/HIV-2 antibodies were not detected. There is no laboratory evidence of HIV infection. PLEASE NOTE: This information has been disclosed to you from records whose confidentiality may be protected by state law. If your state requires such protection, then the state law prohibits you from making any further disclosure of the information without the specific written consent of the person to whom it pertains, or as otherwise permitted by law. A general authorization for the release of medical or other information is NOT sufficient for this purpose. For additional information please refer to http://education.StyleUp/faq/JTS633 (This link is being provided for informational/ educational purposes only.) The performance of this assay has not been clinically validated in patients less than 2 years old. Blood Blood / Unknown 06/23/2024 2 :26 PM EDT 06/23/2024 2:27 PM EDT Narrative [facility] - 07/03/2024 1:31 AM EDT SPLIT 06/23/2024 FROM [id number] COLLECTION KIT GIVEN TO PATIENT. PATIENT ADVISED TO RETURN. Teodora Elder [facility] LAB - BLOOD DRAW Final Result Performing Organization Address [facility] Co de Phone Number [facility] [address] [address], [employer] [address] [address] * (ABNORMAL) HEPATITIS B SURFACE ANTIBODY (HBSAB) QUAL (06/23/2024 2:26 PM EDT) HEPATITIS B SURFACE ANTIBODY QL REACTIVE( A) NON-REACT [employer] Blood Blood / Unknown 06/23/2024 2 :26 PM EDT 06/23/2024 2:27 PM EDT Narrative [facility] [employer] [facility] - 07/03/2024 1:31 AM EDT SPLIT 06/23/2024 FROM [id number] COLLECTION KIT GIVEN TO PATIENT. PATIENT ADVISED TO RETURN. Teodora Elder [facility] LAB - BLOOD DRAW Edited Result - Final [facility] [address] [address], [employer] [address] [place] [address] from Last 3 Months or Most Recently Relevant to Health Maintenance Insurance [facility] [employer] Care Teams Operator Technician Relationship Specialty Start Date End Date Kaylin Thayer FNP-C [address] [place] [address] PCP - General Internal Medicine 12/02/24
== END 2025-04-13 11:34 | disposition home or self-care (01) ==
LOC: HO.US 11:33
PROVIDERS: Visit Provider Advanced Practice Midwife
DX: N93.9 Abnormal uterine and vaginal bleeding, unspecified (principal)
CPT/HCPCS: 76830; 76856

== ENCOUNTER → 2025-04-13 11:35 | Outpatient (BNV) | payer MEDICAID, SELFPAY | PROVIDERS: Visit Provider Radiology Vascular & Interventional Radiology | DX: N83.01 Follicular cyst of right ovary (principal) | CPT/HCPCS: 76830; 76856 ==

== ENCOUNTER 2025-04-13 12:42 | Emergency (ER) | payer MEDICAID, SELFPAY ==
--- NOTE | 2025-04-13 12:58 | ED.GENADULT ---
HPI - General Adult General Chief complaint: Urogenital-Female Stated complaint: burn when urinating Time Seen by Provider: 04/13/25 14:58 Source: patient and manager truck (all interactions with this patient were facilitated with an [facility] approved [employer] manager truck) Mode of arrival: ambulatory Limitations: language barrier (all interactions with this patient were facilitated with an [facility] approved [employer] manager truck) History of Present Illness ED Provider: Deborah Phillips PA-C HPI narrative: Patient is a 40 year old assigned female at with a history of AUB being followed by OBGYN presenting to the emergency department today with painful urination, lower abdominal pain, and back pain. Patient states that over the last few days she has noticed worsening pain with urination as well as lower abdominal pain and low back pain. Patient denies any dizziness, lightheadedness, nausea, vomiting, fever, chills, blurry vision, double vision, loss of vision, chest pain, difficulty breathing, shortness of breath, night sweats, increased urinary frequency, increased urinary urgency, blood in her urine or stool, syncope or a near syncopal episode, recent trauma or falls, bowel incontinence, bladder incontinence, or any other complaints at this time. Relieving factors: none Exacerbating factors: none Associated symptoms: denies other symptoms Treatments prior to arrival: none Related Data Previous Rx's ?Medication ?Instructions ?Recorded ofloxacin 0.3 % eye drops 2 drp ophthalmic (eye) QID 5 days 11/06/24 #5 mL ibuprofen 400 mg tablet 400 mg PO Q6H PRN fever or pain 7 11/28/24 days #28 tabs acetaminophen 500 mg tablet 1,000 mg (2 x 500 mg) PO Q6H PRN 01/31/25 (Tylenol Extra Strength) pain #20 tabs ibuprofen 400 mg tablet 400 mg PO TID PRN fever or pain 01/31/25 #30 tabs acetaminophen 500 mg tablet 500 mg PO Q6H PRN fever or pain 02/16/25 #20 tabs ibuprofen 600 mg tablet 600 mg PO TID PRN pain #14 tabs 02/16/25 PNV 153-FA 400 mcg-om3 35 mg-dha 1 tab PO DAILY #90 tabs 03/02/25 25 mg-epa 5 mg-fish oil chew tablet ( Gummies) cefuroxime axetil 250 mg tablet 250 mg PO BID 7 days #14 tabs 04/13/25 Allergies Allergy/AdvReac Type Severity Reaction Status Date / Time No Known Allergies Allergy Verified 04/13/25 13:12 Review of Systems Constitutional: Constitutional: Reports no additional constitutional complaints, Denies chills, Denies fever(s) and Denies night sweats Eyes: Eyes: Reports no additional eye complaints, Denies blurry vision, Denies change in vision, Denies diplopia, Denies eye discharge, Denies loss of vision and Denies eye pain ENT: Denies dizziness Cardiovascular: Cardiovascular: Reports no additional cardiovascular complaints, Denies chest pain, Denies lightheadedness, Denies Loss of Consciousness and Denies dyspnea Respiratory: Respiratory: Reports no additional respiratory complaints and Denies dyspnea Gastrointestinal: Gastrointestinal: Reports no additional gastrointestinal complaints, Reports abdominal pain, Denies melena, Denies hematochezia, Denies change in bowel habits and Denies change in stool character Genitourinary: Genitourinary: Denies hematuria, Denies urinary frequency, Reports dysuria, Denies urinary incontinence, Denies urinary hesitancy and Denies urinary urgency Musculoskeletal: Musculoskeletal: Reports no additional musculoskeletal complaints, Reports back pain, Denies numbness and Denies tingling Neurologic: Denies dizziness, Denies loss of vision, Denies numbness and Denies tingling Psychiatric: Psychiatric: Reports no additional psychiatric complaints Endocrine: Endocrine: Reports no additional endocrine complaints Hematologic/Lymphatic: Hematologic/Lymphatic: Reports no additional hematologic/lymphatic complaints Allergic/Immunologic: Allergic/Immunologic: Reports no additional allergic/immunologic complaints [facility] Past Medical History Attestation statement: The following information was validated with the patient. Source: old records reviewed and nursing notes reviewed Medical History Fatigue Abnormal uterine bleeding (AUB) COVID-19 Social History Social History Alcohol intake: never Patient Tobacco Use Status: Never used Tobacco Smoked in Last 30 Days: No Use of substances other than those prescribed or required for medical reasons: No Advance Directives: No Advance Directives Information Provided: No Physical Exam ED Vital Signs: Vital Signs - 24 hr 04/13/25 13:10 04/13/25 15:19 04/13/25 15:21 Temperature 97.9 F 98 F 98 F Pulse Rate 77 72 72 Respiratory Rate 16 16 16 Blood Pressure 116/74 121/65 121/65 Pulse Oximetry 98 99 99 Oxygen Delivery Method Room Air Room Air Room Air BMI result Body Mass Index 23.3 Const General: cooperative, no acute distress, alert and awake Nutritional Appearance: well nourished Orientation/consciousness: patient oriented x3 HENMT Head: Yes normal to inspection and Yes atraumatic Ears: hearing grossly normal bilaterally and external ears normal General nose exam: Normal external nose present, no nasal discharge noted and no epistaxis Face and sinus: Yes normal facial exam, No abrasion and No laceration Mouth: Normal oral and palatal mucosa present, no drooling and no muffled voice Eyes General: appearance normal, both eyes and all related structures Periorbital: periorbital findings normal Eyelids: Yes eyelids normal Conjunctivae: conjunctivae normal Pupils: Equal, round and reactive pupils present EOM: EOMs intact bilaterally Neck Neck: Yes normal visual inspection, Yes full ROM and Yes no lymphadenopathy Resp Effort & Inspection: normal respiratory effort and able to speak in complete sentences Neuro General: patient oriented x3, moves all extremities and CN's II-XI intact bilaterally Cranial nerves: Yes Equal, round and reactive pupils present Cognition (Neuro): normal cognition Extrem General: Yes normal to inspection, Yes full ROM and Yes capillary refill normal Psych Appearance: grossly normal Mental Status: mental status grossly normal Affect: normal affect Attitude: cooperative Thought process: Normal thought process present Thought content: Normal thought content present Insight: Good insight present (Psych) Course Course Course Narrative: This is a rapid medical exam performed by Kwaku Gomez NP: Additional HPI, ROS, PE not included below will be deferred to primary provider. Patient is a 40-year-old F[place] speaking female presenting to the emergency department complaining of dysuria, suprapubic and LLQ pain x 13 days. LMP 03/03/25. Seen by [facility] on 03/02 for AUB. Plan: labs, UA Medical Decision Making Medical Decision Making MDM Narrative: Patient is a 40 year old assigned female at with a history of AUB being followed by OBGYN presenting to the emergency department today with painful urination, lower abdominal pain, and back pain. Patient's physical exam was unremarkable. Patient's blood work was unremarkable. Patient's urine showed an acute infection. I explained my physical exam findings as well as all test results to the patient. I answered all questions asked by the patient. I stressed the importance of the patient taking her medication as directed (either prescribed or as the over the counter packaging recommends). I stressed the importance of the patient following up with her primary care provider. I stressed the importance of the patient returning to the emergency department immediately if her symptoms were to worsen or if she were to develop any dizziness, shortness of breath, difficulty breathing, chest pain, blurry vision, loss of vision, nausea, vomiting, abdominal pain, fever, chills, back pain, or any other complaints. Patient verbalized agreement and understanding with this treatment plan and discharge. Differential Diagnosis Differential Diagnoses: The differential diagnosis associated with the presentation includes UTI Dysuria Admission/Observation Consideration of admission/observation: Escalation of care including admission/observation considered Patient would have been admitted to the hospital had her work up had any findings where hospital admission was appropriate and her clinical presentation warranted hospital admission. Lab Data [facility] Lab Attestation statement: I reviewed the patient's lab results. My interpretation of these results are in the MDM Rationale portion of this note. 04/13/25 13:14 04/13/25 13:14 Labs: Lab Results 04/13/25 04/13/25 Range/Units 13:13 13:14 WBC 7.6 (4.8-10.8) X10*3/uL RBC 4.03 L (4.20-5.50) X10*6/uL Hgb 11.9 L (12.0-16.0) g/dl Hct 34.0 L (37.0-47.0) % MCV 84.4 (80.0-98.0) fL MCH 29.5 (27.0-33.0) pg MCHC 35.0 (31.0-35.0) g/dl RDW 11.7 (11.0-16.0) % Plt Count 281 (160-400) X10*3/uL MPV 9.3 L (9.4-12.3) fL Immature Gran % (Auto) 0.4 (0.0-0.4) % Neut % (Auto) 60.1 (45-73) % Lymph % (Auto) 30.7 (20-40) % [place] % (Auto) 7.0 (2-11) % Eos % (Auto) 1.3 (0-4) % Baso % (Auto) 0.5 (0-2) % Lymph # (Auto) 2.3 (1.2-4.9) X10*3/uL [place] # (Auto) 0.5 (0.1-1.2) X10*3/uL Eos # (Auto) 0.1 (0.0-0.4) X10*3/uL Baso # (Auto) 0.0 (0.0-0.2) X10*3/uL Abs Immat Gran (auto) 0.03 (0.00-0.03) X10*3/uL Absolute Neuts (auto) 4.6 (2.0-8.3) x10*3/uL Absolute Nucleated RBC 0.000 (0.0-0.012) X10*3/uL Nucleated RBC % (auto) 0.0 (0.0-0.2) /100WBC Sodium 140 (135-145) mmol/L Potassium 4.3 (3.3-5.1) mmol/L Chloride 110 H (96-108) mmol/L Carbon Dioxide 24 (22-29) mmol/L Anion Gap 10 L (12-20) BUN 20 H (9-16) mg/dL Creatinine 0.58 (0.5-1.4) mg/dL Estim Creat Clear Calc 96.2 Estimated GFR > 60 Random Glucose 82 (60-115) mg/dL Calcium 9.5 (8.4-10.2) mg/dL Total Bilirubin 0.4 (0.0-1.0) mg/dL AST 26 (5-31) U/L ALT 21 (0-31) U/L Alkaline Phosphatase 54 (39-117) U/L Total Protein 7.3 (6.5-8.0) g/dL Albumin 4.7 (3.5-5.0) g/dL Beta HCG, Quant < 2 mIU/mL Urine Color Yellow Urine Appearance Clear Urine pH 6.0 (5.0-9.0) Ur Specific [place] >= 1.030 H (1.005-1.025) Urine Protein Negative (Neg-Trace) mg/dL Urine Glucose (UA) Negative (Negative) mg/dL Urine Ketones Negative (Negative) mg/dL Urine Blood Negative (Negative) Urine Nitrite Positive H (Negative) Ur Leukocyte Esterase Trace H (Negative) Urine RBC 0-2 (0-2) /HPF Urine WBC >50 H (0-5) /HPF Ur Squamous Epith Cells 6-10 (0-2) /HPF Urine Bacteria 2+ (None Seen) Hyaline Casts 0-2 (0-2) /LPF Urine Test NEGATIVE (NEGATIVE) Tests considered The following testing was considered but not selected: I considered obtaining a CT of the abdomen/pelvis however, the patient's current clinical presentation does not warrant this. Prescription Management I considered prescription management with: Antibiotic (Patient prescribed an antibiotic for UTI. ) Discharge Plan Discharge Clinical Impression: Urinary tract infection Patient Disposition: Home, Self-Care Instructions: Urinary Tract Infection in Women (DC) Additional Instructions: Follow up with a primary care provider. If you do not already have a primary care provider, please call one of the numbers below. Return to the emergency department immediately if your symptoms worsen or if you develop any numbness, tingling, dizziness, shortness of breath, difficulty breathing, chest pain, blurry vision, loss of vision, nausea, vomiting, abdominal pain, fever, chills, back pain, or any other complaints. If you do not have a primary care provider - call any of the below numbers to establish and follow up with a primary care provider. [facility] Primary Care ([place]) [phone] [place] [address], [address] [facility] Primary Care ([address] [facility]) [phone] [place] [address], [address] [facility], [address] [facility] Primary Care ([address] [facility]) [phone] [place] [address], [address] [facility], [address] [facility] Primary Care ([place]) [phone] [place] [address] [address] [facility], [address] [facility] Family Medicine [phone] [address] [facility], [address] Prescriptions: New cefuroxime axetil 250 mg tablet 250 mg PO BID 7 Days Qty: 14 0RF No Action ofloxacin 0.3 % drops 2 drp ophthalmic (eye) QID 5 Days Qty: 5 0RF acetaminophen [Tylenol Extra Strength] 500 mg tablet 1,000 mg PO Q6H PRN (Reason: pain) Qty: 20 0RF ibuprofen 400 mg tablet 400 mg PO TID PRN (Reason: fever or pain) Qty: 30 0RF ibuprofen 400 mg tablet 400 mg PO Q6H PRN (Reason: fever or pain) 7 Days Qty: 28 0RF ibuprofen 600 mg tablet 600 mg PO TID PRN (Reason: pain) Qty: 14 0RF acetaminophen 500 mg tablet 500 mg PO Q6H PRN (Reason: fever or pain) Qty: 20 0RF Gummies 400 mcg-35 mg- 25 mg-5 mg tablet,chewable 1 tab PO DAILY Qty: 90 4RF Interventions: ED Discharge Assessment Last Done: 04/13/25 15:21 Discharge Date/Time: 04/13/25 15:28 Print Language: Other
[2025-04-13 13:10] VITALS: BP 116/74; PULSE 77; RESP 16; TEMP 36.6; O2SAT 98; BMI 23.3
[2025-04-13 13:19] LABS: MANUAL DIFF FLAG NO
[2025-04-13 13:20] LABS: Basophils Percent Auto 0.5 % (0-2); Eosinophils Absolute Auto 0.1 X10*3/uL (0.0-0.4); Eosinophils Percent Auto 1.3 % (0-4); Hemoglobin 11.9 g/dl (12.0-16.0); Imm Gran Abs Auto 0.03 X10*3/uL (0.00-0.03); Imm Gran Pct Auto 0.4 % (0.0-0.4); Lymphocytes Absolute Auto 2.3 X10*3/uL (1.2-4.9); Lymphocytes Percent Auto 30.7 % (20-40); Mean Corpuscular Hemoglobin 29.5 pg (27.0-33.0); Mean Corpuscular Volume 84.4 fL (80.0-98.0); Mean Platelet Volume 9.3 fL (9.4-12.3); Monocytes Absolute Auto 0.5 X10*3/uL (0.1-1.2); Neutrophils Absolute Auto 4.6 x10*3/uL (2.0-8.3); Neutrophils Percent Auto 60.1 % (45-73); Platelet Count 281 X10*3/uL (160-400); Red Blood Count 4.03 X10*6/uL (4.20-5.50); Red Cell Distribution Width 11.7 % (11.0-16.0); White Blood Count 7.6 X10*3/uL (4.8-10.8)
[2025-04-13 13:24] LABS: Appearance Urine Clear; Color Urine Yellow; Glucose Urine UA Negative (Negative); Leukocyte Esterase Urine Trace (Negative); Nitrite Urine Positive (Negative); Specific Gravity - Urine >= 1.030 (1.005-1.025); UMIC TRIGGER UACC YES; Urine Blood Negative (Negative); Urine Ketones Negative (Negative); Urine Protein Negative (Neg-Trace)
[2025-04-13 13:28] LABS: UPreg QC Valid YES; Urine Pregnancy NEGATIVE (NEGATIVE)
[2025-04-13 13:30] LABS: Bacteria Urine 2+ (None Seen); Hyaline Casts Urine 0-2 /LPF (0-2); RBC Urine 0-2 /HPF (0-2); UACC Culture Trigger YES; WBC Urine >50 /HPF (0-5)
[2025-04-13 13:47] LABS: Alanine Aminotransferase 21 U/L (0-31); Albumin Level 4.7 g/dL (3.5-5.0); Alkaline Phosphatase 54 U/L (39-117); Anion Gap 10 (12-20); Aspartate Amino Transferase 26 U/L (5-31); Bilirubin Total 0.4 mg/dL (0.0-1.0); Blood Urea Nitrogen 20 mg/dL (9-16); Calcium 9.5 mg/dL (8.4-10.2); Carbon Dioxide 24 mmol/L (22-29); Chloride 110 mmol/L (96-108); Creatinine Clr Calc Pharmacy 96.2; Estimated Glomerular Filt Rate > 60; Glucose Random 82 mg/dL (60-115); HCG Quantitative < 2 mIU/mL; Potassium 4.3 mmol/L (3.3-5.1); Sodium 140 mmol/L (135-145); Total Protein 7.3 g/dL (6.5-8.0)
[2025-04-13 15:19] VITALS: BP 121/65; PULSE 72; RESP 16; TEMP 36.6; O2SAT 99
[2025-04-13 15:21] VITALS: BP 121/65; PULSE 72; RESP 16; TEMP 36.6; O2SAT 99
== END 2025-04-13 15:28 | disposition home or self-care (01) ==
LOC: HO.ED 15:19
PROVIDERS: Registered Nurse Emergency; Emergency Provider Emergency Medicine
DX: N39.0 Urinary tract infection, site not specified (principal); R30.0 Dysuria; M54.50 Low back pain, unspecified; R10.2 Pelvic and perineal pain; Z79.899 Other long term (current) drug therapy
CPT/HCPCS: 36415; 80053; 81001; 81025; 84702; 85025; 87086; 87088; 87186; 99283; 99284

== ENCOUNTER 2025-04-24 15:03 | Emergency (ER) | payer MEDICAID, SELFPAY ==
[2025-04-24 15:19] VITALS: BP 121/81; PULSE 106; RESP 16; TEMP 36.2; O2SAT 100; BMI 21.5
--- NOTE | 2025-04-24 15:23 | ED.GENADULT ---
HPI - General Adult General Chief complaint: Vaginal Bleeding Stated complaint: vaginal bleeding Time Seen by Provider: 04/24/25 18:14 Source: patient Limitations: no limitations and language barrier History of Present Illness ED Provider: Justine Godoy PA-C HPI narrative: 40-year-old female presents with dysfunctional uterine bleeding. Patient states she has had her. Over the past 5 days, she has had worsening abdominal cramping from her baseline, and her menstrual cycle itself is heavier than usual. Associated weakness. She is requesting that is somewhat administer her intramuscular progesterone, that she is prescribed to receive every 3 months. Patient is also requesting medication for her menstrual cramps. Related Data Previous Rx's ?Medication ?Instructions ?Recorded ofloxacin 0.3 % eye drops 2 drp ophthalmic (eye) QID 5 days 11/06/24 #5 mL ibuprofen 400 mg tablet 400 mg PO Q6H PRN fever or pain 7 11/28/24 days #28 tabs acetaminophen 500 mg tablet 1,000 mg (2 x 500 mg) PO Q6H PRN 01/31/25 (Tylenol Extra Strength) pain #20 tabs ibuprofen 400 mg tablet 400 mg PO TID PRN fever or pain 01/31/25 #30 tabs acetaminophen 500 mg tablet 500 mg PO Q6H PRN fever or pain 02/16/25 #20 tabs ibuprofen 600 mg tablet 600 mg PO TID PRN pain #14 tabs 02/16/25 PNV 153-FA 400 mcg-om3 35 mg-dha 1 tab PO DAILY #90 tabs 03/02/25 25 mg-epa 5 mg-fish oil chew tablet ( Gummies) cefuroxime axetil 250 mg tablet 250 mg PO BID 7 days #14 tabs 04/13/25 ketorolac 10 mg tablet 10 mg PO Q6H PRN pain #20 tabs 04/24/25 Allergies Allergy/AdvReac Type Severity Reaction Status Date / Time No Known Allergies Allergy Verified 04/24/25 15:26 Review of Systems Review of Systems: Yes all other systems are reviewed and are negative Constitutional: Constitutional: Denies fatigue and Denies fever(s) Gastrointestinal: Gastrointestinal: Reports GI cramping, Denies diarrhea, Denies nausea and Denies vomiting Genitourinary: Genitourinary: Reports menorrhagia, Reports dysmenorrhea and Denies dysuria Endocrine: Endocrine: Denies fatigue [facility] Past Medical History Attestation statement: The following information was validated with the patient. Medical History Fatigue Abnormal uterine bleeding (AUB) COVID-19 Social History Social History Alcohol intake: never Patient Tobacco Use Status: Never used Tobacco Advance Directives: No Advance Directives Information Provided: Yes Do you have a plan to hurt others: No Plan Physical Exam ED Vital Signs: Vital Signs - 24 hr 04/24/25 15:19 04/24/25 17:59 Temperature 97.2 F 98.4 F Pulse Rate 106 H 74 Respiratory Rate 16 13 Blood Pressure 121/81 119/74 Pulse Oximetry 100 98 Oxygen Delivery Method Room Air Room Air BMI result Body Mass Index 21.5 Const Other: Alert well-appearing Orientation/consciousness: patient oriented x3 Resp Effort & Inspection: normal respiratory effort Cardio Other: Normal peripheral perfusion GI Other: Abdomen is soft nontender no guarding Other: Defer Skin Other: Warm dry no rash Neuro General: patient oriented x3, gait normal, no focal motor deficits and CN's II-XI intact bilaterally Psych Other: Cooperative Course Course Course Narrative: This is a rapid medical exam performed by Kwaku Gomez NP: Additional HPI, ROS, PE not included below will be deferred to primary provider. Patient is a 40-year-old Farc[place] speaking female presenting to the ED with complaint of vaginal bleeding with cramping x 4 days. Currently followed by OBGYN, on medication to control AUB. Plan: labs, UA Medical Decision Making Medical Decision Making [facility] Narrative: 40-year-old female presents with dysfunctional uterine bleeding. Patient states she has had her. Over the past 5 days, she has had worsening abdominal cramping from her baseline, and her menstrual cycle itself is heavier than usual. Associated weakness. She is requesting that is somewhat administer her intramuscular progesterone, that she is prescribed to receive every 3 months. Patient is also requesting medication for her menstrual cramps. Problem: Dysmenorrhea History: Per patient I have considered the following differential diagnoses: Dysfunctional uterine bleeding, ectopic, changes in menstrual cycle, ovarian cyst, torsion, dysmenorrhea Plan: Screening labs were already ordered from triage, her H&H are stable, she is not . She is simply here to be administered her progesterone. We will prescribe Toradol for her menstrual cramps. I have independently reviewed the following tests: Labs: No leukocytosis, not anemic, no electrolyte abnormality, not Lab Data 04/24/25 15:48 04/24/25 15:48 Labs: Lab Results 04/24/25 Range/Units 15:48 WBC 7.0 (4.8-10.8) X10*3/uL RBC 4.02 L (4.20-5.50) X10*6/uL Hgb 12.1 (12.0-16.0) g/dl Hct 33.3 L (37.0-47.0) % MCV 82.8 (80.0-98.0) fL MCH 30.1 (27.0-33.0) pg MCHC 36.3 H (31.0-35.0) g/dl RDW 11.7 (11.0-16.0) % Plt Count 309 (160-400) X10*3/uL MPV 9.3 L (9.4-12.3) fL Immature Gran % (Auto) 0.3 (0.0-0.4) % Neut % (Auto) 62.7 (45-73) % Lymph % (Auto) 29.9 (20-40) % [place] % (Auto) 5.4 (2-11) % Eos % (Auto) 1.1 (0-4) % Baso % (Auto) 0.6 (0-2) % Lymph # (Auto) 2.1 (1.2-4.9) X10*3/uL [place] # (Auto) 0.4 (0.1-1.2) X10*3/uL Eos # (Auto) 0.1 (0.0-0.4) X10*3/uL Baso # (Auto) 0.0 (0.0-0.2) X10*3/uL Abs Immat Gran (auto) 0.02 (0.00-0.03) X10*3/uL Absolute Neuts (auto) 4.4 (2.0-8.3) x10*3/uL Absolute Nucleated RBC 0.000 (0.0-0.012) X10*3/uL Nucleated RBC % (auto) 0.0 (0.0-0.2) /100WBC Sodium 139 (135-145) mmol/L Potassium 4.0 (3.3-5.1) mmol/L Chloride 109 H (96-108) mmol/L Carbon Dioxide 21 L (22-29) mmol/L Anion Gap 13 (12-20) BUN 19 H (9-16) mg/dL Creatinine 0.60 (0.5-1.4) mg/dL Estim Creat Clear Calc 108.6 Estimated GFR > 60 Random Glucose 141 H (60-115) mg/dL Calcium 9.2 (8.4-10.2) mg/dL Total Bilirubin 0.3 (0.0-1.0) mg/dL AST 25 (5-31) U/L ALT 21 (0-31) U/L Alkaline Phosphatase 51 (39-117) U/L Total Protein 7.0 (6.5-8.0) g/dL Albumin 4.4 (3.5-5.0) g/dL Beta HCG, Quant < 2 mIU/mL Discharge Plan Discharge Clinical Impression: Dysmenorrhea Patient Disposition: Home, Self-Care Instructions: Dysmenorrhea (ED) Additional Instructions: You are being treated for your painful menstrual cycle, this is called dysmenorrhea. See home care instructions. Use the ketorolac as needed, take the medication with food, for your cramps in back pain. You were also administered the progesterone injection to help control your menstrual cycles. I am also providing you with a contact for our gynecology service per your request. To note all of your screening labs were completely normal. Prescriptions: New ketorolac 10 mg tablet 10 mg PO Q6H PRN (Reason: pain) Qty: 20 0RF Rx Instructions: maximum total duration of 5 days from all oral, intranasal, or parenteral formulations. Patient received an intramuscular dose of Toradol here in the emergency room No Action ofloxacin 0.3 % drops 2 drp ophthalmic (eye) QID 5 Days Qty: 5 0RF acetaminophen [Tylenol Extra Strength] 500 mg tablet 1,000 mg PO Q6H PRN (Reason: pain) Qty: 20 0RF ibuprofen 400 mg tablet 400 mg PO TID PRN (Reason: fever or pain) Qty: 30 0RF cefuroxime axetil 250 mg tablet 250 mg PO BID 7 Days Qty: 14 0RF ibuprofen 400 mg tablet 400 mg PO Q6H PRN (Reason: fever or pain) 7 Days Qty: 28 0RF ibuprofen 600 mg tablet 600 mg PO TID PRN (Reason: pain) Qty: 14 0RF acetaminophen 500 mg tablet 500 mg PO Q6H PRN (Reason: fever or pain) Qty: 20 0RF Gummies 400 mcg-35 mg- 25 mg-5 mg tablet,chewable 1 tab PO DAILY Qty: 90 4RF Print Language: Other
[2025-04-24 15:54] LABS: MANUAL DIFF FLAG NO
[2025-04-24 15:56] LABS: Hematocrit 33.3 % (37.0-47.0); Hemoglobin 12.1 g/dl (12.0-16.0); Imm Gran Abs Auto 0.02 X10*3/uL (0.00-0.03); Imm Gran Pct Auto 0.3 % (0.0-0.4); Lymphocytes Absolute Auto 2.1 X10*3/uL (1.2-4.9); Mean Corpuscular HGB Conc 36.3 g/dl (31.0-35.0); Mean Corpuscular Hemoglobin 30.1 pg (27.0-33.0); Mean Corpuscular Volume 82.8 fL (80.0-98.0); NRBC Abs Auto 0.000 X10*3/uL (0.0-0.012); NRBC Pct Auto 0.0 /100WBC (0.0-0.2); Platelet Count 309 X10*3/uL (160-400); Red Blood Count 4.02 X10*6/uL (4.20-5.50); White Blood Count 7.0 X10*3/uL (4.8-10.8)
[2025-04-24 16:16] LABS: Alanine Aminotransferase 21 U/L (0-31); Albumin Level 4.4 g/dL (3.5-5.0); Alkaline Phosphatase 51 U/L (39-117); Anion Gap 13 (12-20); Aspartate Amino Transferase 25 U/L (5-31); Blood Urea Nitrogen 19 mg/dL (9-16); Calcium 9.2 mg/dL (8.4-10.2); Carbon Dioxide 21 mmol/L (22-29); Chloride 109 mmol/L (96-108); Creatinine Clr Calc Pharmacy 108.6; Estimated Glomerular Filt Rate > 60; Potassium 4.0 mmol/L (3.3-5.1); Sodium 139 mmol/L (135-145); Total Protein 7.0 g/dL (6.5-8.0)
--- OUTSIDE RECORDS SUMMARY | 2025-04-24 16:54 | XMS_ITS | Data Portability ---
Author Organization [place] - [facility], Allergy Address [address] [address] Care Team Providers Care [employer] Officer Name Role Phone [facility] Primary Care Provider Assessment Encounter Date Assessment Date Assessment LastModified by Organization Details LastModified Time 02/01/2025 02/01/2025 39-year-old female with longstanding recurrent ear infections and pain which have not always been treated, presents with worsening right-sided otalgia and hearing loss, not associated with dizziness, for which she was seen in the emergency department at [place] with CT showing otitis media with erosion [...] In the long-term, recommend evaluation with Dr. Hernandez. The perforations are likely physiologic. She will probably benefit from amplification whether with standard hearing aids or [place]. [email or web address] Not available 02/03/2025 16:52:54 Plan of Treatment Reminders Order Date Submit Date Provider Last Modified By Organization Details Last Modified Time Details Appointments None recorded. Lab None recorded. Referral None recorded. Procedures None recorded. Surgeries None recorded. Imaging None recorded. Medication Orders TobraDex 0.3 %-0.1 % eye drops,susp ension 2024 [address] [id number] [employer], [address] [place], [address], 11:16:22 Patient TargetsNo targets recorded. Patient InstructionsNo instructions recorded. Reason for Referral None Reported. Results Created Date Observation Date Name Description Value Unit Range Abnormal Flag Note LastModifiedBy Organization Detail LastModifiedTime 02/02/2001/31/2025 CT, tempo ral bone, w/o contr ast No observ ation record ed. [email or web address] [place] [address] (Medical Records) [address] [place], [address], 03/04/2025 16:37:19 02/02/2001/31/2025 CT, tempo ral bone, w/o contr ast No observ ation record ed. [facility]iology (Centralized) [address] [facility] [address], [place], [address], 02/02/2025 10:16:19 02/09/2001/31/2025 CT, tempo ral bone, w/o contr ast No observ ation record ed. [email or web address] Not Available 01/19 10:39:51 Result Notes None recorded. Problems Name Problem SNOMED Code Status Onset Date Resolution Date Notes Provider Name and Address Organization Details Recorded Time Marginal perforation of right tympanic membrane 7370351999365 109 Active 2024 PAYTON OVALLES MD [address] [facility] [address], [place], [address], [facility] - [facility] 11:14:41 Central perforation of left tympanic membrane 9097193479260 107 Active 2024 PAYTON OVALLES MD 100 [facility] [address], [place], [address], [facility] - [facility] 11:14:46 Central perforation of right tympanic membrane 0217013180004 101 Active 2024 PAYTON OVALLES MD [address] [address], [place], [address], [facility] - [facility] 11:14:51 Mixed conductive and sensorineur al hearing loss, bilateral 997203314 Active 2024 ACACIA KAHN, [facility] [address] [address], [place], [address], [facility] 11:36:16 Problem Notes None recorded. Procedures Surgical History Date Name Laterality Status Provider Name and Address Organization Details Recorded Time 02/02/20 25 Tympanometry - 33876 completed ACACIA KAHN [facility] [address] [facility],[address] [address], [place], [address], [facility] - [facility] 02/01/2025 11:31:13 02/02/20 25 [employer] - 89892 completed ACACIA KAHN [facility] [address] [facility],[address] [address], [place], [address], [facility] - [facility] 02/01/2025 11:30:45 Imaging Results None recorded. Procedure Notes None recorded. Medical Equipment None [...] Updated DateTime 02/01/2025 157.48 cm 20.1 kg/m2 74923.16 g Oly Melissa [place] - [facility] 02/01/2025 10:45:54 Social History None recorded. Functional Status None recorded. Mental Status None recorded. Family History Nothing Reported. Medical History No medical history recorded. Gynecological HistoryNo gynecological history recorded. Obstetrics History GPAL:G 0 P 0 0 0 0 Past Encounters Encounter ID Performer Location Encounter Start Date Encounter Closed Date Diagnosis/Indication Diagnosis SNOMED-CT Code Diagnosis ICD10 Code Diagnosis Note [id number] PAYTON OVALLES MD [facility] on [address] [place] [address] 02/01/2025 10:33:32 02/01/2025 12:10:44 Central perforation of left tympanic membrane 1379762631 301338 H72.02 Central pe rforation of right tympanic membrane 3033335867 387634 H72.01 Mixed cond uctive and sensorineural hearing loss, bilateral 251866384 H90.6 Audiologic al evaluation results:Ri ght ear:Severe flat mixed hearing loss.Left ear:Severe rising to a moderate mixed hearing loss. Tympanomet ry:Right Ear:Type BLeft Ear:Type B Health Concerns Section Related Observation LastModified by Organization Detai ls LastModified Time None Recorded Concern Status LastModified by Organization Details LastModified Time None Recorded Advance Directives Directive None Recorded Payers Insurance Date Sequence Insurance Name Policy Number Policy Sanchez Covered Member ID Sanchez Member ID Guarantor Name 03/28/2025 1 [place] [facility] Ursula Alexandre [id number] Ursula Alexandre Notes Date Note Type Note Provider Name and Address Organization Details Recorded Time 02/01/2025 text/html 39-year-old dewey moreira presents today for ear painED last night in [place] with hearing loss and painShe had a [...] worse on the right PAYTON OVALLES MD [address] [place] [address],[address] [address], [place], [address], [place] - [facility] 02/03/2025 16:54:07 OBGyn Episode No OBEpisode recorded.
--- OUTSIDE RECORDS SUMMARY | 2025-04-24 16:54 | XMS_ITS | Clinical Summary ---
Author Organization [facility] Address [address] [place] [address] Care Team Providers Care Optical Store Manager Name Role Phone Kaylin Thayer COMMUNITY HEALTH SPECIALIST-C Primary Care Provider [phone] Source Comments PLEASE NOTE, if this patient [...] Description 02/15/2025 3:00 PM EDT Office Visit [address] [address] Kaylin Thayer FNP-C from Last 3 Months Immunizations Immunization Administration Dates Next Due COVID-19,SARS-COV-2 VACCINE, UNSPECIFIED (US Adm in) 06/07/2024 HEP B, PED/ADOL 06/07/2024,02/03/2024 INFLUENZA, SEASONAL, INJECTABLE 02/03/2024 IPV (IPOL) 02/03/2024 Influenza (FLUBLOK),recombinant,injectable,preservative Free 06/23/2024 Digital Message Display COVID-19 VACCINE 02/03/2024 MMR (MMR II/Priorix) 06/07/2024,02/03/2024 Solvate COVID-19 (Comirnaty), Mrna, Lnp-s, Pf, Chidi-sucrose, 30 [...] Description 05/11/2025 2:20 PM EDT [facility] Visit [facility] [address] [place] [address] 06/23/2025 1:00 PM EDT Office Visit [facility] [address] [place] [address] Maikel Castellanos, [facility] [address] [place] [address] Health Maintenance Due Date Last Done Comments HPV Screening 1986 Pap + HPV 1986 Cervical Cancer Screening 2007 Pap Smear 2007 [id number] INJ 05/10/2025 02/15/2025 Imm-Influenza (#1) 2025 06/23/2024, 02/03/2024 Relationship Safety Screening/Counseling 06/23/2025 06/23/2024 Annual Wellness (Adult): Ind icated (All Coverage) 02/15/2026 02/15/2025 Anxiety Screening 02/15/2026 02/15/2025 Tobacco Screening 02/15/2026 02/15/2025 Hypertension Screening (#1) 02/15/2028 Diabetes Screening 02/16/2028 02/15/2025, 02/15/2025 Imm-DTaP/Tdap/Td (2 - Td or Tdap) 06/07/2034 , 02/03/2024 Imm-Hepatitis B Discontinued 06/07/2024, 02/03/2024 HIV Screening Completed 06/23/2024 Hepatitis B Screening Completed 06/23/2024, Hepatitis C Screening Completed 06/23/2024 Alcohol and Drug Screen Completed 11/19/2024, 06/23 Depression Annual Screen Completed 11/19/2024 [id number] Completed 11/19/2024, 05/20, 02/03/2024 Cervical Ablation/Cold-Knife Conization [...] period is included. 02/17/2025 3:00 AM EDT us Kaylin Thayer COMMUNITY HEALTH SPECIALIST-C SCAN IMAGING Final Res ult * THYROID CASCADING REFLEX PANEL (02/15/2025 3:22 PM EDT) TSH 1.64 0.40 - 4.50 mIU/L [facility] Comment: Reference Range > or = 20 Years 0.40-4.50 Ranges First trimester 0.26-2.66 Second trimester 0.55-2.73 Third trimester 0.43-2.91 Blood Blood / Unknown 02/15/2025 3 :22 PM EDT 02/15/2025 3:22 PM EDT Narrative [facility] - 02/16/2025 5:14 PM EDT FASTING:UNKNOWN Kaylin Thayer COMMUNITY HEALTH SPECIALIST-C LAB - BLOOD DRAW Edited R esult - Final [facility] [address] [address], [place] [address] [address] * BLOOD COUNT COMPLETE AUTO&AUTO DIFRNTL WBC (02/15/2025 3:22 PM EDT) Pathologist [facility] WHITE BLOOD CELL COUNT 6.5 3.8 - 10.8 Thousand/ uL [facility] RED BLOOD CELL COUNT 4.03 3.80 - 5.10 Million/u L [facility] HEMOGLOBIN 11.7 11.7 - 15.5 g/dL [facility] HEMATOCRIT 36.2 35.0 - 45.0 % [facility] MCV 89.8 80.0 - 100.0 fL [facility] MCH 29.0 27.0 - 33.0 pg [facility] MCHC 32.3 32.0 - 36.0 g/dL [facility] Comment: For adults, a slight decrease in the calculated MCHC value (in the range of 30 to 32 g/dL) is most likely not clinically significant; however, it should be interpreted with caution in correlation with other red cell parameters and the patient's clinical condition. RDW 11.4 11.0 - 15.0 % [facility] PLATELET COUNT 325 140 - 400 Thousand/ uL [facility] MPV 10.7 7.5 - 12.5 fL [facility] ABSOLUTE NEUTROPHILS 3,757 1,500 - 7,800 cells/uL [facility] ABSOLUTE LYMPHOCYTES 2,191 850 - 3,900 cells/uL [facility] ABSOLUTE MONOCYTES 429 200 - 950 cells/uL [facility] ABSOLUTE EOSINOPHILS 72 15 - 500 cells/uL [facility] ABSOLUTE BASOPHILS 52 0 - 200 cells/uL [facility] NEUTROPHILS PCT 57.8 % [facility] LYMPHOCYTES 33.7 % [facility] MONOCYTES 6.6 % [facility] EOSINOPHILS 1.1 % [facility] BASOPHILS 0.8 % [facility] Blood Blood / Unknown 02/15/2025 3 :22 PM EDT 02/15/2025 3:22 PM EDT Narrative [facility] [employer] - 02/16/2025 5:14 PM EDT FASTING:UNKNOWN us Kaylin REAVES-C LAB - BLOOD DRAW Edited R esult - Final Performing Organization Address [facility] de Phone Number [facility] [address] [address], [facility] [address] [address] * HEMOGLOBIN GLYCOSYLATED A1C (02/15/2025 3:22 PM EDT) HEMOGLOBIN A1C 5.2 <5.7 % [facility] Comment: For the purpose of screening for the presence of diabetes: <5.7% Consistent with the absence of diabetes 5.7-6.4% Consistent with increased risk for diabetes (prediabetes) > or =6.5% Consistent with diabetes This assay result is consistent with a decreased risk of diabetes. Currently, no consensus exists regarding use of hemoglobin A1c for diagnosis of diabetes in children. According to [place] Diabetes Association (ADA) guidelines, hemoglobin A1c <7.0% represents optimal control in non- diabetic patients. Different metrics may apply to specific patient populations. Standards of Medical Care in Diabetes(ADA). Blood Blood / Unknown 02/15/2025 3 :22 PM EDT 02/15/2025 3:22 PM EDT Narrative [facility] [employer] - 02/16/2025 5:14 PM EDT FASTING:UNKNOWN us Kaylin REAVES-C LAB - BLOOD DRAW Final Re sult [facility] [address] [address], [place] [address] [address] * (ABNORMAL) LIPID PANEL (02/15/2025 3:22 PM EDT) CHOLESTEROL, TOTAL 170 <200 mg/dL [facility] HDL CHOLESTEROL 47(L) > OR = 50 mg/dL [facility] TRIGLYCERIDES 65 <150 mg/dL [facility] LDL-CHOLESTEROL 108(H) 99 mg/dL (calc) [facility] Comment: Reference range: <100 Desirable range <100 mg/dL for primary prevention; <70 mg/dL for patients with CHD or diabetic patients with > or = 2 CHD risk factors. LDL-C is now calculated using the Robbie calculation, which is a validated novel method providing better accuracy than the Friedewald equation in the estimation of LDL-C. Enoch HOFFMAN et al. TYLER. 2013;310(19): 6801-8509 (http://education.hoozin/faq/MPQ125) CHOL/HDLC RATIO 3.6 <5.0 (calc) [facility] NON-HDL CHOLESTEROL 123 <130 mg/dL (calc) [facility] Comment: For patients with diabetes plus 1 major ASCVD risk factor, treating to a non-HDL-C goal of <100 mg/dL (LDL-C of <70 mg/dL) is considered a therapeutic option. Blood Blood / Unknown 02/15/2025 3 :22 PM EDT 02/15/2025 3:22 PM EDT Narrative [facility] - 02/16/2025 5:14 PM EDT FASTING:UNKNOWN Kaylin Thayer COMMUNITY HEALTH SPECIALIST-C LAB - BLOOD DRAW Final Re sult [facility] [address] [address], [place] [address] [address] * COMPREHENSIVE METABOLIC PANEL (02/15/2025 3:22 PM EDT) GLUCOSE 93 65 - 99 mg/dL [place] [facility] Comment: Fasting reference interval UREA NITROGEN (BUN) 22 7 - 25 mg/dL [place] [facility] CREATININE (blood) 0.51 0.50 - 0.97 mg/dL [place] [facility] EGFR 122 > OR = 60 mL/min/1. 73m2 [place] [facility] BUN/CREATININE RATIO SEE NOTE: 6 - [place] [facility] Comment: Not Reported: BUN and Creatinine are within reference range. SODIUM 136 135 - 146 mmol/L [place] [facility] POTASSIUM 4.9 3.5 - 5.3 mmol/L [place] [facility] CHLORIDE 105 98 - 110 mmol/L [place] [facility] CARBON DIOXIDE 25 20 - 32 mmol/L [place] [facility] CALCIUM 9.3 8.6 - 10.2 mg/dL [place] [facility] PROTEIN, TOTAL 7.1 6.1 - 8.1 g/dL [place] [facility] ALBUMIN 4.4 3.6 - 5.1 g/dL [place] [facility] GLOBULIN 2.7 1.9 - 3.7 g/dL (calc) [place] [facility] ALBUMIN/GLOBULI N RATIO 1.6 1.0 - 2.5 (calc) [place] [facility] BILIRUBIN, TOTAL 0.4 0.2 - 1.2 mg/dL [place] [facility] ALKALINE PHOSPHATASE 47 31 - 125 U/L [place] [facility] AST 17 10 - 30 U/L [place] [facility] ALT 14 6 - 29 U/L [place] [facility] Blood Blood / Unknown 02/15/2025 3 :22 PM EDT 02/15/2025 3:22 PM EDT Narrative [place] [facility] - 02/16/2025 5:14 PM EDT FASTING:UNKNOWN us Kaylin Thayer COMMUNITY HEALTH SPECIALIST-C LAB - BLOOD DRAW Edited R esult - Final [place] [facility] [address] [address], [place] [address] [address] * HCG URINE MCKESSON (POCT) (02/15/2025 3:12 PM EDT) URINE HCG NEGATIVE NEGATIVE [facility] POCT INTERNAL CONTROL PASS PASS [facility] POCT Urine Urine specimen / Unknown 02/15/2025 3:12 PM EDT [facility] Jeovany COMMUNITY HEALTH SPECIALIST-C LAB URINE AMBULATORY Luz l Result Performing Organization Address City/[facility]/ZIP Co de Phone Number [facility] OFF[facility] POCT * (ABNORMAL) URINALYSIS, MULTISTIX (POCT) (02/15/2025 3:11 PM EDT) URINE GLUCOSE NEGATIVE NEGATIVE [facility] POCT URINE BILIRUBIN NEGATIVE NEGATIVE [facility] POCT URINE KETONES NEGATIVE NEGATIVE [facility] POCT URINE SPECIFIC GRAVITY 1.030(A) <=1.005 - >=1.030 [facility]- [facility] OFF[facility] POCT URINE BLOOD TRACE HEMOLYZED(A) NEGATIVE [facility] POCT URINE PH 5.5 5.0 - 8.5 [facility] POCT URINE PROTEIN 30 (1+)(A) Negative [facility] POCT URINE UROBILINOGEN 0.2 0.2 - 1.0 E.U./dL [facility] POCT URINE NITRITE NEGATIVE NEGATIVE [facility] POCT URINE LEUKOCYTES NEGATIVE NEGATIVE [facility] POCT URINE COLOR YELLOW STRAW, YELLOW [facility] POCT ODOR URINE Normal Normal [facility] OFF[facility] POCT CLARITY OF URINE CLEAR CLEAR [facility] POCT Urine Urine specimen / Unknown 02/15/2025 3:11 PM EDT [facility] Jeovany COMMUNITY HEALTH SPECIALIST-C LAB URINE AMBULATORY Luz l Result [facility] POCT * SURESWAB ADVANCED VAGINITIS PLUS, TMA (02/15/2025 2:55 PM EDT) SURESWAB(R) ADV BACTERIAL VAGINOSIS (BV), TMA NEGATIVE NEGATIVE [facility] CAROL SPECIES NOT DETECTED NOT DETECTED [facility] CAROL GLABRATA NOT DETECTED NOT DETECTED [facility] COMMENT [facility] TRICHOMONAS VAGINALIS (TV), TMA NOT DETECTED NOT DETECTED [place] [facility] CHLAMYDIA TRACHOMATIS RNA, TMA NOT DETECTED NOT DETECTED [place] [facility] NEISSERIA GONORRHOEAE RNA, TMA NOT DETECTED NOT DETECTED [place] [facility] COMMENT [place] [facility] Vaginal Vaginal structure / Unknown 02/15/2025 2:55 PM EDT 02/16/2025 10:40 AM EDT Narrative [facility] - 02/16/2025 7:32 PM EDT Carol species C. albicans, C. tropicalis, C. parapsilosis, and/or C. dubliniensis can be detected, but not differentiated, in the Carol spp. result. For additional information, please refer to https://TalkyLand.[employer]/faq/UER360 (This link is being provided for information/ educational purposes only.) [employer] COMMUNITY HEALTH SPECIALIST-C LAB - MICROBIOLOGY AMBULA TORY Final Result [place] [address] [address], [place] [address] [address] * REFERRAL SCANNED DOCUMENT (02/01/2025 3:00 AM EDT) 02/01/2025 3:00 AM EDT [employer] COMMUNITY HEALTH SPECIALIST-C SCAN REFERRAL Final Res ult * HEP C AB W/RLFX HCV RNA (for all adults >/= 18 yrs, all women, and all unaccompanied minors) (06/23/2024 2:26 PM EDT) HEPATITIS C ANTIBODY NON-REACT EMILE NON-REACT EMILE [place] [facility] Comment: HCV antibody was non-reactive. There is no laboratory evidence of HCV infection. In most cases, no further action is required. However, if recent HCV exposure is suspected, a test for HCV RNA (test code 09589) is suggested. For additional information please refer to http://TalkyLand.[employer]/faq/OFR61n2 (This link is being provided for informational/ educational purposes only.) Blood Blood / Unknown 06/23/2024 2 :26 PM EDT 06/23/2024 2:27 PM EDT Narrative [facility] - 07/03/2024 1:31 AM EDT SPLIT 06/23/2024 FROM [id number] COLLECTION KIT GIVEN TO PATIENT. PATIENT ADVISED TO RETURN. us Teodora Elder [facility] LAB - BLOOD DRAW Edited Result - Final [place] [address] [address], [place] [address] [address] * HIV 1/2 AG & AB W/RFLX (Required for 13 yrs to 64 yrs) (06/23/2024 2:26 PM EDT) HIV AG/AB, 4TH GEN NON-REAC TIVE NON-REAC TIVE [place] [facility] Comment: HIV-1 antigen and HIV-1/HIV-2 antibodies [...] purpose. For additional information please refer to http://education.99inn.cc.Booktrope/faq/UHJ886 (This link is being provided for informational/ educational purposes only.) The performance of this assay has not been clinically validated in patients less than 2 years old. Blood Blood / Unknown 06/23/2024 2 :26 PM EDT 06/23/2024 2:27 PM EDT Narrative [facility] - 07/03/2024 1:31 AM EDT SPLIT 06/23/2024 FROM [id number] COLLECTION KIT GIVEN TO PATIENT. PATIENT ADVISED TO RETURN. [place] Teodorabinta Elder [facility] LAB - BLOOD DRAW Final Result Performing Organization Address City/[facility]/ZIP Co de Phone Number [facility] [address] [place] [address], [facility] [address] [address] * (ABNORMAL) HEPATITIS B SURFACE ANTIBODY (HBSAB) QUAL (06/23/2024 2:26 PM EDT) HEPATITIS B SURFACE ANTIBODY QL REACTIVE( A) NON-REACT [employer] Blood Blood / Unknown 06/23/2024 2 :26 PM EDT 06/23/2024 2:27 PM EDT Narrative [facility] - 07/03/2024 1:31 AM EDT SPLIT 06/23/2024 FROM [id number] COLLECTION KIT GIVEN TO PATIENT. PATIENT ADVISED TO RETURN. Teodora Elder [facility] LAB - BLOOD DRAW Edited Result - Final Performing Organization Address City/[facility]/ZIP Co de Phone Number [facility] [address] [place] [address], [employer] [place] [employer] [address] [place] [phone] from Last 3 Months or Most Recently Relevant to Health Maintenance Insurance [employer] Care Teams Optical Store Manager Relationship Specialty Start Date End Date Kaylin Thayer FNP-C [address] [place] [address] PCP - General Internal Medicine 12/02/24
[2025-04-24 17:59] VITALS: BP 119/74; PULSE 74; RESP 13; TEMP 36.9; O2SAT 98
--- NOTE | 2025-04-24 20:37 | PC.NURSE ---
PT asked this nurse to administer her at home Progesterone shot, I educated the patient on why I couldn't administer her home injection, but pt teaching on Injections was provided with Cyndy chute builder. Pt medicated per DEC with Toradol.
[2025-04-24 20:39] VITALS: BP 119/74; PULSE 74; RESP 13; TEMP 36.9; O2SAT 98
== END 2025-04-24 20:39 | disposition home or self-care (01) ==
PROVIDERS: Registered Nurse Emergency; Emergency Provider Emergency Medicine
DX: N94.4 Primary dysmenorrhea (principal); R10.2 Pelvic and perineal pain; R53.1 Weakness; R25.2 Cramp and spasm; Z79.899 Other long term (current) drug therapy
CPT/HCPCS: 36415; 80053; 84702; 85025; 96372; 99283; 99284; J1885

== ENCOUNTER 2025-05-04 08:24 | Outpatient (AMB) | payer MEDICAID, SELFPAY ==
--- OUTSIDE RECORDS SUMMARY | 2025-05-04 08:27 | XMS_ITS | Clinical Summary ---
Author Organization [facility] Address [address] [place] [address] Care Team Providers Care Shirt Folding Machine Operator Name Role Phone Kaylin Thayer MELT HOUSE SUPERVISOR-C Primary Care Provider [phone] Source Comments PLEASE NOTE, if this patient [...] Description 02/15/2025 3:00 PM EDT Office Visit [address] [address] Kaylin Thayer FNP-C from Last 3 Months Immunizations Immunization Administration Dates Next Due COVID-19,SARS-COV-2 VACCINE, UNSPECIFIED (US Adm in) 06/07/2024 HEP B, PED/ADOL (JIDCZNT-Y-XUAV/RECOMBIVAX-PEDS) 06/07/2024,02/03/2024 INFLUENZA, SEASONAL, INJECTABLE 02/03/2024 IPV (IPOL) 02/03/2024 Influenza (FLUBLOK),recombinant,injectable,preservative Free 06/23/2024 [employer] COVID-19 VACCINE 02/03/2024 MMR (MMR II/Priorix) 06/07/2024,02/03/2024 [facility] COVID-19 (Comirnaty), Mrna, Lnp-s, Pf, Chidi-sucrose, 30 [...] Description 05/11/2025 2:20 PM EDT Office Visit [facility] [address] [place] [address] 06/23/2025 1:00 PM EDT Office Visit [facility] [address] [place] [id number] Maikel Castellanos, [facility] [address] [place] [address] Health Maintenance Due Date Last Done Comments HPV Screening 1985 Pap + HPV 1985 Cervical Cancer Screening 2007 Pap Smear 2007 [id number]-[id number]-jckkigw INJ 05/10/2025 02/15/2025 Imm-Influenza (#1) 2025 06/23/2024, [...] 11/19/2024, 06/23 Depression Annual Screen Completed 11/19/2024 [id number] Completed 11/19/2024, 05/20, 02/03/2024 Cervical Ablation/Cold-Knife Conization [...] TMA Routine 02/15/2025 2:55 PM EDT Dysuria HIV 1/2 AG & AB W/RFLX (4TH [...] 02/17/2025 3:00 AM EDT us Kaylin Thayer MELT HOUSE SUPERVISOR-C SCAN IMAGING Final Res ult * THYROID CASCADING REFLEX PANEL (02/15/2025 3:22 PM EDT) TSH 1.64 0.40 - 4.50 mIU/L DNART LIMITADA [facility] Comment: Reference Range > or = 20 Years 0.40-4.50 Ranges First trimester 0.26-2.66 Second trimester 0.55-2.73 Third trimester 0.43-2.91 Blood Blood / Unknown 02/15/2025 3 :22 PM EDT 02/15/2025 3:22 PM EDT Narrative [employer] - 02/16/2025 5:14 PM EDT FASTING:UNKNOWN Kaylin Thayer MELT HOUSE SUPERVISOR-C LAB - BLOOD DRAW Edited R esult - Final [employer] [address] [address], [address] [address] * BLOOD COUNT COMPLETE AUTO&AUTO DIFRNTL WBC (02/15/2025 3:22 PM EDT) Pathologist [facility] WHITE BLOOD CELL COUNT 6.5 3.8 - 10.8 Thousand/ uL DNART LIMITADA [facility] RED BLOOD CELL COUNT 4.03 3.80 - 5.10 Million/u L [facility] HEMOGLOBIN 11.7 11.7 - 15.5 g/dL [facility] HEMATOCRIT 36.2 35.0 - 45.0 % [facility] MCV 89.8 80.0 - 100.0 fL [facility] MCH 29.0 27.0 - 33.0 pg [facility] MCHC 32.3 32.0 - 36.0 g/dL [facility] Comment: For adults, a slight decrease in the calculated MCHC value (in the range of 30 to 32 g/dL) is most likely not clinically significant; however, it should be interpreted with caution in correlation with other red cell parameters and the patient's clinical condition. RDW 11.4 11.0 - 15.0 % [facility] PLATELET COUNT 325 140 - 400 Thousand/ uL [facility] MPV 10.7 7.5 - 12.5 fL [facility] ABSOLUTE NEUTROPHILS 3,757 1,500 - 7,800 cells/uL [facility] ABSOLUTE LYMPHOCYTES 2,191 850 - 3,900 cells/uL [facility] ABSOLUTE MONOCYTES 429 200 - 950 cells/uL [facility] ABSOLUTE EOSINOPHILS 72 15 - 500 cells/uL [facility] ABSOLUTE BASOPHILS 52 0 - 200 cells/uL [facility] NEUTROPHILS PCT 57.8 % [facility] LYMPHOCYTES 33.7 % [facility] MONOCYTES 6.6 % [facility] EOSINOPHILS 1.1 % [facility] BASOPHILS 0.8 % [facility] Blood Blood / Unknown 02/15/2025 3 :22 PM EDT 02/15/2025 3:22 PM EDT Narrative [facility] - 02/16/2025 5:14 PM EDT FASTING:UNKNOWN us Kaylin REAVES-C LAB - BLOOD DRAW Edited R esult - Final Performing Organization Address [facility] de Phone Number [place] [address] [address], [place] [address] [address] * HEMOGLOBIN GLYCOSYLATED A1C (02/15/2025 3:22 PM EDT) HEMOGLOBIN A1C 5.2 <5.7 % [facility] Comment: For the purpose of screening for the presence of diabetes: <5.7% Consistent with the absence of diabetes 5.7-6.4% Consistent with increased risk for diabetes (prediabetes) > or =6.5% Consistent with diabetes This assay result is consistent with a decreased risk of diabetes. Currently, no consensus exists regarding use of hemoglobin A1c for diagnosis of diabetes in children. According to [place] Diabetes Association (ADA) guidelines, hemoglobin A1c <7.0% represents optimal control in non- diabetic patients. Different metrics may apply to specific patient populations. Standards of Medical Care in Diabetes(ADA). Blood Blood / Unknown 02/15/2025 3 :22 PM EDT 02/15/2025 3:22 PM EDT Narrative [facility] - 02/16/2025 5:14 PM EDT FASTING:UNKNOWN us Kaylin REAVES-C LAB - BLOOD DRAW Final Re sult [facility] [address] [address], [place] [address] [address] * (ABNORMAL) LIPID PANEL (02/15/2025 3:22 PM EDT) Pathologist [facility] CHOLESTEROL, TOTAL 170 <200 mg/dL [facility] HDL CHOLESTEROL 47(L) > OR = 50 mg/dL [facility] TRIGLYCERIDES 65 <150 mg/dL [facility] LDL-CHOLESTEROL 108(H) 99 mg/dL (calc) [facility] Comment: Reference range: <100 Desirable range <100 mg/dL for primary prevention; <70 mg/dL for patients with CHD or diabetic patients with > or = 2 CHD risk factors. LDL-C is now calculated using the Robbie calculation, which is a validated novel method providing better accuracy than the Friedewald equation in the estimation of LDL-C. Enoch SS et al. TYLER. 2013;310(19): 9233-2745 (http://education.Enxue.com/faq/NCY300) CHOL/HDLC RATIO 3.6 <5.0 (calc) [facility] NON-HDL CHOLESTEROL 123 <130 mg/dL (calc) DNART LIMITADA [facility] Comment: For patients with diabetes plus 1 major ASCVD risk factor, treating to a non-HDL-C goal of <100 mg/dL (LDL-C of <70 mg/dL) is considered a therapeutic option. Blood Blood / Unknown 02/15/2025 3 :22 PM EDT 02/15/2025 3:22 PM EDT Narrative [employer] [facility] - 02/16/2025 5:14 PM EDT FASTING:UNKNOWN us Kaylin Thayer MELT HOUSE SUPERVISOR-C LAB - BLOOD DRAW Final Re sult [facility] [address] [address], [place] [address] [address] * COMPREHENSIVE METABOLIC PANEL (02/15/2025 3:22 PM EDT) GLUCOSE 93 65 - 99 mg/dL [facility] Comment: Fasting reference interval UREA NITROGEN (BUN) 22 7 - 25 mg/dL [facility] CREATININE (blood) 0.51 0.50 - 0.97 mg/dL [facility] EGFR 122 > OR = 60 mL/min/1. 73m2 [facility] BUN/CREATININE RATIO SEE NOTE: - [facility] Comment: Not Reported: BUN and Creatinine are within reference range. SODIUM 136 135 - 146 mmol/L [facility] POTASSIUM 4.9 3.5 - 5.3 mmol/L [facility] CHLORIDE 105 98 - 110 mmol/L [facility] CARBON DIOXIDE 25 20 - 32 mmol/L [facility] CALCIUM 9.3 8.6 - 10.2 mg/dL [facility] PROTEIN, TOTAL 7.1 6.1 - 8.1 g/dL [facility] ALBUMIN 4.4 3.6 - 5.1 g/dL [facility] GLOBULIN 2.7 1.9 - 3.7 g/dL (calc) [facility] ALBUMIN/GLOBULI N RATIO 1.6 1.0 - 2.5 (calc) [facility] BILIRUBIN, TOTAL 0.4 0.2 - 1.2 mg/dL [facility] ALKALINE PHOSPHATASE 47 31 - 125 U/L [facility] AST 17 10 - 30 U/L [facility] ALT 14 6 - 29 U/L [facility] Blood Blood / Unknown 02/15/2025 3 :22 PM EDT 02/15/2025 3:22 PM EDT Narrative [facility] - 02/16/2025 5:14 PM EDT FASTING:UNKNOWN us Kaylin Thayer MELT HOUSE SUPERVISOR-C LAB - BLOOD DRAW Edited R esult - Final [facility] [address] [address], [facility] [address] [place] [address] * HCG URINE MCKESSON (POCT) (02/15/2025 3:12 PM EDT) URINE HCG NEGATIVE NEGATIVE [facility] POCT INTERNAL CONTROL PASS PASS [facility] BACK OFF[facility] POCT Urine Urine specimen / Unknown 02/15/2025 3:12 PM EDT [facility] MELT HOUSE SUPERVISOR-C LAB URINE AMBULATORY Luz l Result Performing Organization Address [facility]/ZIP Co de Phone Number [facility] OFF[facility] POCT * (ABNORMAL) URINALYSIS, MULTISTIX (POCT) (02/15/2025 3:11 PM EDT) URINE GLUCOSE NEGATIVE NEGATIVE [facility] POCT URINE BILIRUBIN NEGATIVE NEGATIVE [facility] OFF[facility] POCT URINE KETONES NEGATIVE NEGATIVE [facility]- BACK OFFICE POCT URINE SPECIFIC GRAVITY 1.030(A) <=1.005 - >=1.030 [facility] BACK [facility] POCT URINE BLOOD TRACE HEMOLYZED(A) NEGATIVE [facility] POCT URINE PH 5.5 5.0 - 8.5 [facility] POCT URINE PROTEIN 30 (1+)(A) Negative [facility] OFF[facility] POCT URINE UROBILINOGEN 0.2 0.2 - 1.0 E.U./dL [facility] POCT URINE NITRITE NEGATIVE NEGATIVE [facility] POCT URINE LEUKOCYTES NEGATIVE NEGATIVE [facility] POCT URINE COLOR YELLOW STRAW, YELLOW [facility]- BACK OFFICE POCT ODOR URINE Normal Normal [facility]- BACK OFFICE POCT CLARITY OF URINE CLEAR CLEAR [facility] POCT Urine Urine specimen / Unknown 02/15/2025 3:11 PM EDT [facility] MELT HOUSE SUPERVISOR-C LAB URINE AMBULATORY Luz l Result Performing Organization Address [facility]/ZIP Co de Phone Number [facility]- BACK OFFICE POCT * SURESWAB ADVANCED VAGINITIS PLUS, TMA (02/15/2025 2:55 PM EDT) SURESWAB(R) ADV BACTERIAL VAGINOSIS (BV), TMA NEGATIVE NEGATIVE [facility] CAROL SPECIES NOT DETECTED NOT DETECTED [facility] CAROL GLABRATA NOT DETECTED NOT DETECTED [facility] COMMENT [facility] TRICHOMONAS VAGINALIS (TV), TMA NOT DETECTED NOT DETECTED [facility] CHLAMYDIA TRACHOMATIS RNA, TMA NOT DETECTED NOT DETECTED [facility] NEISSERIA GONORRHOEAE RNA, TMA NOT DETECTED NOT DETECTED [facility] COMMENT [facility] Vaginal Vaginal structure / Unknown 02/15/2025 2:55 PM EDT 02/16/2025 10:40 AM EDT Narrative [employer] [facility] - 02/16/2025 7:32 PM EDT Carol species C. albicans, C. tropicalis, C. parapsilosis, and/or C. dubliniensis can be detected, but not differentiated, in the Carol spp. result. For additional information, please refer to https://WalkHub.Orlebar Brown/faq/DNC717 (This link is being provided for information/ educational purposes only.) Kaylin Thayer MELT HOUSE SUPERVISOR-C LAB - MICROBIOLOGY AMBULA [facility] Final Result [employer] [address] [address], [place] [address] [address] * HEP C AB W/RLFX HCV RNA (for all adults >/= 18 yrs, all women, and all unaccompanied minors) (06/23/2024 2:26 PM EDT) Pathologist [facility] HEPATITIS C ANTIBODY NON-REACT EMILE NON-REACT EMILE [facility] Comment: HCV antibody was non-reactive. There is no laboratory evidence of HCV infection. In most cases, no further action is required. However, if recent HCV exposure is suspected, a test for HCV RNA (test code 70123) is suggested. For additional information please refer to http://WalkHub.Orlebar Brown/faq/DLX33s3 (This link is being provided for informational/ educational purposes only.) Blood Blood / Unknown 06/23/2024 2 :26 PM EDT 06/23/2024 2:27 PM EDT Narrative [employer] [facility] - 07/03/2024 1:31 AM EDT SPLIT 06/23/2024 FROM [id number] COLLECTION KIT GIVEN TO PATIENT. PATIENT ADVISED TO RETURN. [facility] LAB - BLOOD DRAW Edited Result - Final Performing Organization Address [facility]/ZIP Co de Phone Number PO[facility]MO [facility] [address] [address], ip[employer]ive [address] [address] * HIV 1/2 AG & AB W/RFLX (Required for 13 yrs to 64 yrs) (06/23/2024 2:26 PM EDT) [facility] Signature HIV AG/AB, 4TH GEN NON-REAC TIVE NON-REAC TIVE DNART LIMITADA [facility] Comment: HIV-1 antigen and HIV-1/HIV-2 [...] purpose. For additional information please refer to http://education.Orlebar Brown/faq/HVD791 (This link is being provided for informational/ educational purposes only.) The performance of this assay has not been clinically validated in patients less than 2 years old. Blood Blood / Unknown 06/23/2024 2 :26 PM EDT 06/23/2024 2:27 PM EDT Narrative [employer] [facility] - 07/03/2024 1:31 AM EDT SPLIT 06/23/2024 FROM [id number] COLLECTION KIT GIVEN TO PATIENT. PATIENT ADVISED TO RETURN. Teodora Johnsonalyssa [facility] LAB - BLOOD DRAW Final Result Performing Organization Address [facility]/ZIP Co de Phone Number PO-MO [facility] [address] [address], [facility]ive [address] [address] * (ABNORMAL) HEPATITIS B SURFACE ANTIBODY (HBSAB) QUAL (06/23/2024 2:26 PM EDT) HEPATITIS B SURFACE ANTIBODY QL REACTIVE( A) NON-REACT EMILE [facility] Blood Blood / Unknown 06/23/2024 2 :26 PM EDT 06/23/2024 2:27 PM EDT Narrative [facility] - 07/03/2024 1:31 AM EDT SPLIT 06/23/2024 FROM [id number] COLLECTION KIT GIVEN TO PATIENT. PATIENT ADVISED TO RETURN. Teodora Elder [facility] LAB - BLOOD DRAW Edited Result - Final [employer] [address] [address], [facility] [address] [place] [address] from Last 3 Months or Most Recently Relevant to Health Maintenance Insurance [address] [employer] Care Teams Shirt Folding Machine Operator Relationship Specialty Start Date End Date Kaylin Thayer FNP-C [facility] [place] [address] PCP - General Internal Medicine 12/02/24
--- OUTSIDE RECORDS SUMMARY | 2025-05-04 08:28 | XMS_ITS | Data Portability ---
Author Organization [place] [facility], Allergy Address [address] [address] Care Team Providers Care Library Monitor Name Role Phone [facility] Primary Care Provider [phone] Assessment Encounter Date Assessment Date Assessment LastModified by Organization Details LastModified Time 02/01/2025 02/01/2025 39-year-old female with longstanding recurrent ear infections and pain which have not always been treated, presents with worsening right-sided otalgia and hearing loss, not associated with dizziness, for which she was seen in the emergency department at [place] with CT showing otitis media with erosion [...] eye drops,susp ension 2024 [address] [address] [employer], [address] [place], [address], 11:16:22 Patient TargetsNo targets recorded. Patient InstructionsNo instructions recorded. Reason for Referral None Reported. Results Created Date Observation Date Name Description Value Unit Range Abnormal Flag Note LastModifiedBy Organization Detail LastModifiedTime 02/02/2001/31/2025 CT, tempo ral bone, w/o contr ast No observ ation record ed. [email or web address] [place] [address] (Medical Records) [address] [place], [address], 03/04/2025 16:37:19 02/02/2001/31/2025 CT, tempo ral bone, w/o contr ast No observ ation record ed. [facility] Radiology (Centralized) [address] [facility] [address], [place], [address], 02/02/2025 10:16:19 02/09/2001/31/2025 CT, tempo ral bone, w/o contr ast No observ ation record ed. [email or web address] Not Available 01/19 10:39:51 Result Notes None recorded. Problems Name Problem SNOMED Code Status Onset Date Resolution Date Notes Provider Name and Address Organization Details Recorded Time Marginal perforation of right tympanic membrane 4683896033926 109 Active 2024 PAYTON OVALLES MD 100 [facility] [address], [place], [address], [facility] - [facility] 11:14:41 Central perforation of left tympanic membrane 3212809245446 107 Active 2024 PAYTON OVALLES MD 100 [facility] [address], [place], [address], [facility] - [facility] 11:14:46 Central perforation of right tympanic membrane 0404474354627 101 Active 2024 PAYTON OVALLES MD [address] [place] [address], [place], [address], [facility] - [facility] [place] 11:14:51 Mixed conductive and sensorineur al hearing loss, bilateral 189356453 Active 2024 ACACIA KAHN, [facility] [address] [place] [address], [place], [address], [facility] [place] 11:36:16 Problem Notes None recorded. Procedures Surgical History Date Name Laterality Status Provider Name and Address Organization Details Recorded Time 02/02/20 25 Tympanometry - 02543 completed ACACIA KAHN [facility] 100 [facility],[place] [address], [place], [address], [facility] - [facility] 02/01/2025 11:31:13 02/02/20 25 Air [employer] Bone Audio - 51002 completed ACACIA KAHN [facility] 100 [facility],[place] [address], [place], [address], [facility] - [facility] 02/01/2025 11:30:45 Imaging Results None recorded. Procedure [...] Updated DateTime 02/01/2025 157.48 cm 20.1 kg/m2 17742.16 g Oly Melissa [place] [facility] [...] SNOMED-CT Code Diagnosis ICD10 Code Diagnosis Note 95206 PAYTON OVALLES MD [facility] on [address] [place] [address] 02/01/2025 10:33:32 02/01/2025 12:10:44 Central perforation of left tympanic membrane 3962848642 522029 H72.02 Central pe rforation of right tympanic membrane 2376215858 778352 H72.01 Mixed cond uctive and sensorineural hearing loss, bilateral 957050727 H90.6 Audiologic al evaluation results:Ri ght ear:Severe [...] Sanchez Member ID Guarantor Name 03/28/2025 1 MEDICAID[place]: [facility] Ursula Alexandre [id number] Ursula Alexandre Notes Date Note Type Note Provider Name and Address Organization Details Recorded Time 02/01/2025 text/html 39-year-old dewey moreira presents today for ear painED last night in [place] with hearing loss and painShe had a [...] worse on the right PAYTON OVALLES MD [address] [place] [address],[place] [address], [place], [address], [place] - [facility] 02/03/2025 16:54:07 OBGyn Episode No OBEpisode recorded.
--- NOTE | 2025-05-04 08:40 | MHC.OFFVIS ---
Intake Visit Reasons: Ultra sound follow up/Kinyarwanda Director Funds Development Required: Yes Director Funds Development Language: Kinyarwanda Director Funds Development Services: Director Funds Development Present ([employer] Rewardse machine) Information Interpreted: clinical only Equipment Maintenance Superintendent: Equipment Maintenance Superintendent Present Accompanied by: Self / Same As Patient Allergies pork derived (porcine) Allergy (Verified 05/04/25 11:37) pork Is last menstrual period known: Yes HPI Comments Details: Patient is here today for a follow up on her pelvic ultrasound results. History of AUB x 12 days for several months. [place] her labs obtained. History of fatigue and decreased appetite. [facility] Medical History Fatigue Abnormal uterine bleeding (AUB) COVID-19 Social History Alcohol intake: never Patient Tobacco Use Status: Never used Tobacco Review of Systems Const All systems reviewed & are unremarkable except as noted in HPI and below Endo Reports no additional complaints Physical Exam Const General: cooperative, healthy appearing and no acute distress Psych Appearance: well kempt Attitude: cooperative Thought process: Normal thought process present Results Reviewed Results Reviewed: [address] [address] Ultrasound Report Signed Patient: Ursula Alexandre MR#: [id number] : 1985 Acct:[id number] Age/Sex: 40 / F ADM Date: 04/13/25 Loc: HO.US Attending Dr: Lay Frank CNM Ordering Physician: Lay Frank CNM Date of Service: 04/13/25 Procedure(s): US pelvic and transvaginal Accession Number(s): [id number] cc: Lay Frank CNM~ CLINICAL HISTORY: N93.9 - Abnormal uterine and vaginal bleeding, unspecified US pelvis transvaginal and transabdominal Comparison: None provided Findings: The uterus is normal in size, measuring 6.7 cm in length. The endometrial stripe is normal in thickness at 1.0 cm. The right ovary measures 3.2 x 3.1 x 2.4 cm. The left ovary measures 1.5 x 1.0 x 1.6 cm. 2.3 cm simple right ovarian follicular cyst is present. No free fluid is seen in the pelvis. IMPRESSION: 1. 2.3 cm simple right ovarian follicular cyst. No follow-up is needed. 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 Counseled regarding hormonal treatment for AUB to include Mirena IUD use for 5 years, she is interested in this method. Preprocedure anticipatory guidance reviewed, advised to eat and hydrate, to take 3 Ibuprofen 1 hour before her appointment time. Advised to call when she has the onset of her menstrual cycle to insert the IUD in the 1st 5 days of her cycle. She reports she does have ibuprofen on hand at home and does not need a prescription today. Additionally she had not started her vitamins due to it being composed a gelatin, Rx discontinued and a new prescription sent to the pharmacy for tablets with the message to the pharmacist that she does not ingest pork-gelatin products. The patient expressed understanding and agreement with the plan of care. All of her questions and concerns were addressed to the best of my ability. This note is constructed using voice recognition software. While every effort has been made to ensure accuracy, shale planer operator errors may have been included. (2) Encounter to discuss test results: Code(s): Z71.2 - Person consulting for explanation of examination or test findings Plan Discussed: US findings-IMPRESSION: 1. 2.3 cm simple right ovarian follicular cyst. No follow-up is needed. Medications: New PNV,calcium 59-hgem-jsdwn acid 27 mg iron- 1 mg ( Vitamins Plus Low Iron) 1 tab PO DAILY 90 tabs 4RF Discontinued acetaminophen Discontinued Reason: Patient Completed Course 500 mg PO Q6H PRN 20 tabs 0RF fever or pain ibuprofen Discontinued Reason: Patient Completed Course 400 mg PO TID PRN 30 tabs 0RF fever or pain PNV no.[id number] 400 mcg-35 mg- 25 mg-5 mg ( Gummies) Discontinued Reason: Patient Refused 1 tab PO DAILY 90 tabs 4RF Coding Level of Care Code Est Pt Level 3 (07833) Diagnoses Abnormal uterine bleeding (AUB) N93.9 Encounter to discuss test results Z71.2
== END 2025-05-04 11:55 | disposition home or self-care (01) ==
LOC: HO.HWS 08:24
PROVIDERS: Visit Provider Advanced Practice Midwife
DX: N93.9 Abnormal uterine and vaginal bleeding, unspecified (principal); Z71.2 Person consulting for explanation of examination or test findings
CPT/HCPCS: 99213

== ENCOUNTER 2025-05-04 08:24 | Outpatient (REF) | payer MEDICAID, SELFPAY ==
[2025-05-04 11:26] LABS: Thyroid Stimulating Hormone 1.67 uIU/mL (0.32-4.0)
[2025-05-07 19:08] LABS: Vitamin D 25-OH, D2 <4 ng/mL; Vitamin D 25-OH, D3 26 ng/mL; Vitamin D 25-OH, Total 26 ng/mL (30-100)
== END 2025-05-04 08:25 | disposition home or self-care (01) ==
LOC: HO.LAB 08:24
PROVIDERS: Visit Provider Advanced Practice Midwife
DX: N92.1 Excessive and frequent menstruation with irregular cycle (principal); N93.9 Abnormal uterine and vaginal bleeding, unspecified; Z71.2 Person consulting for explanation of examination or test findings; R53.83 Other fatigue
CPT/HCPCS: 36415; 82306; 84443; 99212

== ENCOUNTER 2025-07-18 10:25 | Emergency (ER) | payer MEDICAID, SELFPAY ==
[2025-07-18 10:27] VITALS: BP 127/85; PULSE 65; RESP 16; TEMP 37; O2SAT 98; BMI 22.7
--- NOTE | 2025-07-18 10:27 | ED_ITS ---
HPI - General Adult General Chief complaint: General Medical Stated complaint: gen med Time Seen by Provider: 07/18/25 11:43 Source: patient, RN notes reviewed and bindery machine setter/set up operator (Jenni bindery machine setter/set up operator utilized on IPAD) Mode of arrival: ambulatory Limitations: language barrier (Jenni speaking) History of Present Illness ED Provider: FRANDY Guy HPI narrative: 40-year-old female without significant medical history presents to the ED requesting multiple STI testing including HIV, herpes, hep B, chlamydia and gonorrhea due to a suspected exposure from her . Patient states she was sent from her PCP to the emergency department to get these testings done. Additionally, patient states she is experiencing some constipation has not had a bowel movement in 3 days, however is passing flatus. Denies increased vaginal discharge, or pelvic pain. MD complaint: STI testing Related Data Previous Rx's ?Medication ?Instructions ?Recorded ofloxacin 0.3 % eye drops 2 drp ophthalmic (eye) QID 5 days 11/06/24 #5 mL acetaminophen 500 mg tablet 1,000 mg (2 x 500 mg) PO Q 6H PRN 01/31/25 (Tylenol Extra Strength) pain #20 tabs ibuprofen 600 mg tablet 600 mg PO TID PRN pain #14 t abs 02/16/25 cefuroxime axetil 250 mg tablet 250 mg PO BID 7 days # 14 tabs 04/13/25 ketorolac 10 mg tablet 10 mg PO Q6H PRN pain #20 ta bs 04/24/25 vitamins with calcium 1 tab PO DAILY #90 tabs 05/04/25 no.72-iron 27 mg-folic acid 1 mg tablet ( Vitamins Plus Low Iron) cholecalciferol (vitamin D3) 25 25 mcg PO DAILY 3 dejuan hs #90 caps 05/08/25 mcg (1,000 unit) capsule polyethylene glycol 3350 17 gram 17 g PO DAILY #30 ea 07/18/25 oral powder packet (Miralax) Allergies Allergy/AdvReac Type Severity Reaction Status Date / Time pork derived (porcine) Allergy pork Verified 07/18/25 10:41 Review of Systems Review of Systems: CONST: Negative for fever, body aches and chills. HENT: Negative for neck pain/stiffness, headache, congestion, sore throat, swelling. EYES: Negative for discharge/pain or vision changes. RESP: Negative for cough/hemoptysis and shortness of breath. CV: Negative chest pain, difficulty breathing, palpitations. ABD: Negative pain, nausea, vomiting. POS constipation : Negative increase frequency, dysuria, blood in urine or stool. MUSC: Negative for muscle aches, edema. SKIN: Negative rash, lesions/sores. NEURO: Negative headache, dizziness, weakness. Yes all other systems are reviewed and are negative PMFSH Past Medical History Attestation statement: The following information was validated with the patient. Source: old records reviewed and nursing notes reviewed Medical History Fatigue Abnormal uterine bleeding (AUB) COVID-19 Social History Social History Alcohol intake: never Patient Tobacco Use Status: Never used Tobacco Smoked in Last 30 Days: No Use of substances other than those prescribed or required for medical reasons: No Advance Directives: No Advance Directives Information Provided: No Physical Exam ED Vital Signs: Vital Signs - 24 hr 07/18/25 10:27 07/18/25 11:13 Temperature 98.6 F Pulse Rate 65 93 Respiratory Rate 16 16 Blood Pressure 127/85 113/74 Pulse Oximetry 98 98 Oxygen Delivery Method Room Air Room Air BMI result Body Mass Index 22.7 GENERAL APPEARANCE: ?AxOx4, generally well-appearing, no acute distress. HEENT: ?NC, AT. MMM. EOMI, clear conjunctiva, oropharynx clear. NECK: ?Supple without lymphadenopathy.? No stiffness or restricted ROM. HEART:? Normal rate and regular rhythm, normal S1/S2, no m/r/g LUNGS:? CTAB, moving air well. No crackles or wheezes are heard. ABDOMEN: ?Soft, nondistended, no guarding, no rigidity EXTREMITIES: ?Without cyanosis, clubbing or edema. NEUROLOGICAL: ?Grossly nonfocal. Alert and oriented, moving all 4 extremities. Observed to ambulate with normal gait. Skin: ?Warm and dry without any rash. Course Course Course Narrative: Rapid medical examination performed in triage by Deborah Phillips PA-C. Patient is a 40 year old assigned female at presenting to the emergency department with a list of labs her PCP has requested. Patient states that her PCP sent her a text requesting she get several tests performed. HIV, hepB, gonorrhea, and chlamydia. Gonorrhea and chlamydia ordered. I explained to the patient that we do not routinely check HIV, Hepatitis B, or cholesterol from the emergency department. I explained to the patient that we would check a gonorrhea and chlamydia here. Detailed physical exam and review of systems are deferred to the vocational training teacher. Labs ordered. Patient placed back in the waiting room pending room availability and results. Medical Decision Making Medical Decision Making MDM Narrative: 40-year-old female without significant medical history presents to the ED requesting multiple STI testing including HIV, herpes, hep B, chlamydia and gonorrhea due to a suspected exposure from her . Patient states she was sent from her PCP to the emergency department to get these testings done. Additionally, patient states she is experiencing some constipation has not had a bowel movement in 3 days, however is passing flatus. Differential Diagnosis Differential Diagnoses: The differential diagnosis associated with the presentation includes encounter for STI testing Constipation Admission/Observation Consideration of admission/observation: Escalation of care including admission/observation considered Lab Data Labs: Lab Results 07/18/25 Range/Units 10:45 Ur N gonorrhoeae DNA (PCR) NOT DETECTED (Not Detect.) Ur Chlamydia DNA (PCR) NOT DETECTED (Not Detect.) External Record Review External record reviewed: Inpatient record, Office record and Outpatient record Chronic Conditions Patient?s care impacted by: Other (No known medical history) Discharge Plan Discharge Clinical Impression: Concern about STI in female without diagnosis Patient Disposition: Home, Self-Care Additional Instructions: You were evaluated in the ED today due to concerns for STI exposure. We were able to do chlamydia and gonorrhea testing in the department today which was negative. You requested HIV, herpes, hep B testing as well, I am unable to do these tests in the ED today, you need to follow up with your primary care doctor and[facility]. You stated you have been mildly constipated not had a bowel movement in 3 days, however has been passing gas. You will be prescribed MiraLax. Please take this medication daily mixing 1 packet in 8 oz of water until you begin to have bowel movements. Please follow up with your primary care doctor, rehab rn for further evaluation. Your Chlamydia and gonorrhea tests were negative today. You still need testing for HIV, and hepatitis B. [facility] I have provided the location and phone number[facility] [address], [facility] [address] Phone number: [phone] Please return to the emergency department if you experience fevers over 100.4?, chest pain, shortness of breath, increased vaginal discharge, inability to have a bowel movement, inability to pass gas from your bottom, abdominal pain, nausea, vomiting or any new/worsening/concerning symptoms. Prescriptions: New polyethylene glycol 3350 [Miralax] 17 gram powder in packet 17 g PO DAILY Qty: 30 0RF No Action cholecalciferol (vitamin D3) 25 mcg (1,000 unit) capsule 25 mcg PO DAILY 90 Days Qty: 90 1RF ofloxacin 0.3 % drops 2 drp ophthalmic (eye) QID 5 Days Qty: 5 0RF acetaminophen [Tylenol Extra Strength] 500 mg tablet 1,000 mg PO Q6H PRN (Reason: pain) Qty: 20 0RF cefuroxime axetil 250 mg tablet 250 mg PO BID 7 Days Qty: 14 0RF ketorolac 10 mg tablet 10 mg PO Q6H PRN (Reason: pain) Qty: 20 0RF Rx Instructions: maximum total duration of 5 days from all oral, intranasal, or parenteral formulations. Patient received an intramuscular dose of Toradol here in the emergency room ibuprofen 600 mg tablet 600 mg PO TID PRN (Reason: pain) Qty: 14 0RF Vitamin Plus Low Iron 27 mg iron- 1 mg tablet 1 tab PO DAILY Qty: 90 4RF Print Language: Other
[2025-07-18 11:13] VITALS: BP 113/74; PULSE 93; RESP 16; O2SAT 98
--- NOTE | 2025-07-18 11:28 | PC.NURSE ---
Addendum entered by Lin Benavidez RN 07/18/25 11:31: Patient is a 40 year female presenting to the emergency department with a list of labs her PCP has requested. Patient states that her PCP sent her a text requesting she get several tests performed. HIV, hepB, gonorrhea, and chlamydia. Utilizing a [facility] interpretor patient states she needed these tests in order to obtain a passport. Alert and oriented. Lungs clear bilat. Respirations even and non-labored. Abdomen soft, non-tender with positive bowel sounds. Does c/o vaginal burning when having intercourse. Positive pedal pulses with no edema. Original Note: Medical History Fatigue Abnormal uterine bleeding (AUB) COVID-19
--- OUTSIDE RECORDS SUMMARY | 2025-07-18 12:20 | XMS_ITS | Clinical Summary ---
Author Organization [facility] Address [address] [place] [address] Care Team Providers Care Equipment Operation Instructor Name Role Phone JeovanyGenaro monteirobj BOX TOE CEMENTER-C Primary Care Provider [phone] Source Comments PLEASE NOTE, if this patient [...] for pain 30 Tablet 1 5 Active medroxyPROGESTERon e (DEPO-PROVERA) 150 mg/mL syringeIndications :Irregular menstrual bleeding,Encounter for Depo-Provera contraception Inject 1 mL into the muscle every 3 (three) months 1 mL 3 5 Active clotrimazole-betam ethasone (LOTRISONE) 1-0.05 % lotionIndications: Ringworm, body Apply topically 2 (two) times daily. 30 mL 1 5 Active Hospital, Clinic, or Other Facility Administered [...] Encounters Date Type Department Care Team Description 06/30/2025 3:20 PM EDT Office Visit [address] [phone] Kaylin Thayer, Hansa Schwartz, Community Health Worker from Last 3 Months Immunizations Immunization Administration Dates Next Due COVID-19,SARS-COV-2 VACCINE, UNSPECIFIED (US Adm in) 06/07/2024 HEP B, PED/ADOL (YYRFXKC-S-LFPM/RECOMBIVAX-PEDS) 06/07/2024,02/03/2024 INFLUENZA, SEASONAL, INJECTABLE 02/03/2024 IPV (IPOL) 02/03/2024 Influenza (FLUBLOK),recombinant,injectable,preservative Free 06/23/2024 Moonfruit COVID-19 VACCINE 02/03/2024 MMR (MMR II/Priorix) 06/07/2024,02/03/2024 Pfizer COVID-19 (Comirnaty), Mrna, Lnp-s, Pf, Chidi-sucrose, 30 [...] Sign Reading Time Taken Comments Blood Pressure 120/76 06/30/2025 12:59 PM EDT Pulse 102 06/30/2025 12:59 PM EDT Temperature 37 C (98.6 F) 06/30/2025 12:59 PM EDT Respiratory Rate 16 06/30/2025 12:59 PM EDT Oxygen Saturation 98% 11/19/2024 2:29 PM EST Inhaled Oxygen Concentration - - Weight 54.4 kg (120 lb) 06/30/2025 12:59 PM EDT Height 152.4 cm (5') 06/30/2025 12:59 PM EDT Body Mass Index 23.44 06/30/2025 12:59 PM EDT Plan of Treatment Upcoming Encounters Date Type Department Care Team (Late st Contact Info) Description 09/22/2025 11:20 AM EST Office Visit [facility] [address] [place] [address] Brandon Kumar [address] [place] [address] Health Maintenance Due Date Last Done Comments HPV Screening 1986 Pap + HPV 1986 Cervical Cancer Screening 2007 Pap Smear 2007 Imm-HPV (1 - 3-dose SCDM series) 2013 SCIT-Qqpe-qoswxts INJ 05/10/2025 02/15/2025 Imm-Influenza (#1) 2025 06/23/2024, 02/03/2024 Relationship Safety Screening/Counseling 06/23/2025 06/23/2024 Annual Wellness (Adult): Ind icated (All Coverage) 02/15/2026 02/15/2025 Anxiety Screening 02/15/2026 02/15/2025 Tobacco Screening 06/30/2026 06/30/2025 Diabetes Screening 02/16/2028 02/15/2025, 02/15/2025 Hypertension Screening (#1) 06/29/2028 Imm-DTaP/Tdap/Td (2 - Td or Tdap) 06/07/2034 024, 02/03/2024 Imm-Hepatitis B Discontinued 06/07/2024, 02/03/2024 HIV Screening Completed 06/23/2024 Hepatitis B Screening Completed 06/23/2024, 024 Hepatitis C Screening Completed 06/23/2024 Alcohol and Drug Screen Completed 11/19/2024, 06/23 Depression Annual Screen Completed 11/19/2024 [id number] Completed 11/19/2024, 05/20, 02/03/2024 Cervical Ablation/Cold-Knife Conization Discontinued Cervical Cryotherapy Discontinued Colposcopy Discontinued Endometrial Biopsy Discontinued Excision/Leep Discontinued HPV Genotyping Discontinued Vaginal Pap Discontinued Vulvoscopy Discontinued Procedures Procedure Name Priority Date/Time Associated Diagnosis Comments COMPREHENSIVE METABOLIC PANEL Routine 02/15/2025 3:22 PM EDT Routine general medical examination at a health care facility HIV 1/2 AG & AB W/RFLX (4TH [...] Recently Relevant to Health Maintenance Results * COMPREHENSIVE METABOLIC PANEL (02/15/2025 3:22 PM EDT) GLUCOSE 93 65 - 99 mg/dL [facility] Comment: Fasting reference interval UREA NITROGEN (BUN) 22 7 - 25 mg/dL [facility] CREATININE (blood) 0.51 0.50 - 0.97 mg/dL [facility] EGFR 122 > OR = 60 mL/min/1. 73m2 [facility] BUN/CREATININE RATIO SEE NOTE: [facility] Comment: Not Reported: BUN and Creatinine are within reference range. SODIUM 136 135 - 146 mmol/L [facility] POTASSIUM 4.9 3.5 - 5.3 mmol/L [facility] CHLORIDE 105 98 - 110 mmol/L [facility] CARBON DIOXIDE 25 20 - 32 mmol/L [facility] CALCIUM 9.3 8.6 - 10.2 mg/dL [facility] PROTEIN, TOTAL 7.1 6.1 - 8.1 g/dL [facility] ALBUMIN 4.4 3.6 - 5.1 g/dL [facility] GLOBULIN 2.7 1.9 - 3.7 g/dL (calc) [facility] ALBUMIN/GLOBULI N RATIO 1.6 1.0 - 2.5 (calc) [facility] BILIRUBIN, TOTAL 0.4 0.2 - 1.2 mg/dL [facility] ALKALINE PHOSPHATASE 47 31 - 125 U/L [facility] AST 17 10 - 30 U/L [facility] ALT 14 6 - 29 U/L [facility] Blood Blood / Unknown 02/15/2025 3 :22 PM EDT 02/15/2025 3:22 PM EDT Narrative [facility] - 02/16/2025 5:14 PM EDT FASTING:UNKNOWN Kaylin Thayer BOX TOE CEMENTER-C LAB - BLOOD DRAW Edited R esult - Final [facility] [employer] [facility] [address] [address], [employer] [address] [place] [phone] * HEP C AB W/RLFX HCV RNA (for all adults >/= 18 yrs, all women, and all unaccompanied minors) (06/23/2024 2:26 PM EDT) HEPATITIS C ANTIBODY NON-REACT EMILE NON-REACT EMILE [facility] Comment: HCV antibody was non-reactive. There is no laboratory evidence of HCV infection. In most cases, no further action is required. However, if recent HCV exposure is suspected, a test for HCV RNA (test code 04234) is suggested. For additional information please refer to http://education.Agenus/faq/MOR83q4 (This link is being provided for informational/ educational purposes only.) Blood Blood / Unknown 06/23/2024 2 :26 PM EDT 06/23/2024 2:27 PM EDT Narrative [facility] - 07/03/2024 1:31 AM EDT SPLIT 06/23/2024 FROM [id number] COLLECTION KIT GIVEN TO PATIENT. PATIENT ADVISED TO RETURN. [facility] LAB - BLOOD DRAW Edited Result - Final [facility] [address] [place] [id number], [employer] [address] [place] [phone] * HIV 1/2 AG & AB W/RFLX (Required for 13 yrs to 64 yrs) (06/23/2024 2:26 PM EDT) HIV AG/AB, 4TH GEN NON-REAC TIVE NON-REAC TIVE [facility] Comment: HIV-1 antigen and HIV-1/HIV-2 antibodies were [...] purpose. For additional information please refer to http://education.Agenus/faq/NPE518 (This link is being provided for informational/ educational purposes only.) The performance of this assay has not been clinically validated in patients less than 2 years old. Blood Blood / Unknown 06/23/2024 2 :26 PM EDT 06/23/2024 2:27 PM EDT Narrative [facility] - 07/03/2024 1:31 AM EDT SPLIT 06/23/2024 FROM [id number] COLLECTION KIT GIVEN TO PATIENT. PATIENT ADVISED TO RETURN. [facility] - BLOOD DRAW Final Result Performing Organization Address [facility]/ZIP Co de Phone Number [facility] [address] [place] [id number], [employer] [address] [place] [phone] * (ABNORMAL) HEPATITIS B SURFACE ANTIBODY (HBSAB) QUAL (06/23/2024 2:26 PM EDT) HEPATITIS B SURFACE ANTIBODY QL REACTIVE( A) NON-REACT EMILE [facility] Blood Blood / Unknown 06/23/2024 2 :26 PM EDT 06/23/2024 2:27 PM EDT Narrative [facility] - 07/03/2024 1:31 AM EDT SPLIT 06/23/2024 FROM [id number] COLLECTION KIT GIVEN TO PATIENT. PATIENT ADVISED TO RETURN. [facility] - BLOOD DRAW Edited Result - Final Performing Organization Address City/[facility]/ZIP Co de Phone Number [facility] [address] [place] [address], [facility] [address] [phone] from Last 3 Months or Most Recently Relevant to Health Maintenance Insurance [address] [employer] Care Teams Equipment Operation Instructor Relationship Specialty Start Date End Date Kaylin Thayer FNP-C [address] [place] [address] PCP - General Internal Medicine 12/02/24
--- OUTSIDE RECORDS SUMMARY | 2025-07-18 12:20 | XMS_ITS | Clinical Summary ---
Author Organization [facility] Address [address] [place] [address] Care Team Providers Care Hat Renovator Name Role Phone Unavailable Primary Care Provider Unavailabl e Encounters Date Type Department Care Team Description 05/10/2025 Population Health Risk Score Community Care [facility] (C[facility]) Department [address] [facility] 2[facility] [address] [place] [id number] Provider, Population Health Generic from Last 3 Months Social History Tobacco Use Types Packs/Day Years Used Date Smoking Tobacco: Never Assessed Comments Unknown Sex and Gender Information Value Date Recorded Sex Assigned at Not on file Legal Sex Female 9:27 PM EDT Gender Identity Not on file Sexual Orientation Not on file Plan of Treatment Health Maintenance Due Date Last Done Comments Depression Screening 1986 SDOH Screening 1986 Disability Screening 1986 Alcohol/Substance Use Screening 1998 Tobacco Screening 1998 Family Planning (PISQ) 2001 HPV Vaccines (1 - 3-dose series) 2001 Hepatitis C Screening 2004 Hepatitis B Vaccines (1 of 3 - 19+ 3-dose series) 2005 06/07/2024, 02/03/2024 Pap Smear 2007 Cervical Cancer Screening 2016 HPV/Cotest 2016 IPV Vaccines (2 of 3 - Adult catch-up series) 03/02/2024 02/03/2024 Influenza Vaccine (#1) 2025 , 02/03/2024 DTaP/Tdap/Td Vaccines (2 - T d or Tdap) 06/07/2034 06/07/2024, 02/03/2024 Zoster Vaccines (1 of 2) 2036 RSV Patients and Patients Aged 60 years or older (1 - 1-dose 75+ series) 2061 HIV Screening Completed 06/23/2024, 06/23/2024 COVID-19 Vaccine Completed 11/19/2024, 06/07/2024, 02/03/2024 HIB Vaccines Aged Out No longer eligi ble based on patient's age to complete this topic Hepatitis A Vaccines Aged Out No long er eligible based on patient's age to complete this topic Meningococcal B Vaccine Aged Out No l onger eligible based on patient's age to complete this topic Meningococcal Vaccine Aged Out No eleanor emmanuel eligible based on patient's age to complete this topic Pneumococcal Vaccine: Pediatrics (0 to 5 Years) and At-Risk Patients (6 to 49) Years Aged Out No longer eligible b ased on patient's age to complete this topic RSV under 20 months Aged Out No longe r eligible based on patient's age to complete this topic Rotavirus Vaccines Aged Out No longer eligible based on patient's age to complete this topic
[2025-07-18 12:21] LABS: CT PCR Urine NOT DETECTED (Not Detect.); NG PCR Urine NOT DETECTED (Not Detect.)
[2025-07-18 13:54] VITALS: BP 113/74; PULSE 93; RESP 16; TEMP 36.8; O2SAT 98
== END 2025-07-18 13:55 | disposition home or self-care (01) ==
PROVIDERS: Physician Assistant Medical; Emergency Provider Emergency Medicine
DX: K59.00 Constipation, unspecified (principal); Z20.2 Contact with and (suspected) exposure to infections with a predominantly sexual mode of transmission; Z79.899 Other long term (current) drug therapy
CPT/HCPCS: 87491; 87591; 99283; 99284

== ENCOUNTER 2025-09-07 15:18 | Emergency (ER) | payer MEDICAID, SELFPAY ==
--- NOTE | ~2025-09-07 | CT_ITS ---
CLINICAL HISTORY: L pleuritic pain, remote TB CT angiogram chest/pulmonary arteries with contrast Multiplanar reconstructions and MIPS Comparison: None provided Findings: No filling defects are noted to suggest pulmonary embolus. Main pulmonary artery normal in caliber. Thoracic aorta normal caliber without dissection. Heart size normal. Great vessel origins patent. No coronary calcifications. No significant focal parenchymal abnormalities. Symmetric calcified bilateral apical scarring. Multifocal bilateral calcified linear scar. No significant mediastinal or hilar adenopathy. Incidental benign calcified nodes. No free pleural fluid. No acute bony abnormality noted. Impression: No evidence of pulmonary embolus This document has been electronically signed by: Lalo Osei MD on 09/08/2025 00:02:36
--- NOTE | ~2025-09-07 | XR_ITS ---
EXAMINATION: XR CHEST CLINICAL INFORMATION: CP COMPARISON: None available. TECHNIQUE: 2 views of the chest were obtained. FINDINGS: Wedge-shaped opacity in the upper medial right lung appears to represent a combination of atelectasis and bronchiectasis. Multiple irregular shaped opacities projecting over the left upper lung may be pleural based. No pneumothorax or pleural effusion. Cardiac silhouette is within normal limits. Osseous structures appear intact. XR/XR chest 2V IMPRESSION: 1. Probable combination of atelectasis and bronchiectasis involving the upper medial right lung. 2. Probable pleural-based opacities projecting over the left upper lung. Recommend chest CT for further evaluation. Electronically signed by: Mireya Kuhn MD 09/07/2025 03:59 PM BHARATI
[2025-09-07 15:27] VITALS: BP 135/79; PULSE 98; RESP 18; TEMP 36.6; O2SAT 98; BMI 21.1
--- NOTE | 2025-09-07 15:28 | ED_ITS ---
HPI - Weakness General Chief complaint: Chest Pain Stated complaint: weakness, L side pain Time Seen by Provider: 09/07/25 20:57 History of Present Illness ED Provider: johnathon HPI Narrative: HPI taken with male partner at bedside, speaks [place] from [place]. Pt declined the official tablet [email or web address] pediatric speech language pathologist Author / Clinician: Joey Santacruz MD (Emergency Medicine) Chief Complaint Chest pain. History of Present Illness The patient presents with intermittent chest pain localized under the left breast that began during a stressful telephone conversation with her mother earlier today. Pain is described as non-radiating and is aggravated by deep inspiration or exertion such as walking. Severity is less than 10/10. She reports intermittent pain that comes and goes, with shortness of breath and feelings of nervousness/anxiety during the stressful event. She denies radiation to the arms, back, or neck. She reports no leg swelling. When she pressed on the affected area herself, she did experience pain, suggesting some reproducibility. She recalls a similar episode approximately 15 years ago. No known history of blood clots. Denies hormone use. Past medical history notable for diabetes mellitus. She is not on any daily medications, taking only occasional acetaminophen. The pain began during a stressful conversation with her mother regarding her spiritual life, which included ongoing conflict and disagreement; psychosocial stressors may be contributing. Review of Systems - Constitutional: no fever reported. - Cardiovascular: positive for intermittent left-sided chest pain; no radiation to arm, back, or neck; no leg swelling. - Respiratory: shortness of breath associated with chest pain; no cough. - Gastrointestinal: denies abdominal pain, vomiting; bowel movements normal. - Genitourinary: normal urination; no dysuria or frequency. - Musculoskeletal: no reproducible pain on chest wall palpation. - Endocrine: history of diabetes mellitus. Physical Examination Vital Signs: Physical Exam: - General: patient alert and conversational via pediatric speech language pathologist. Pt conservative gnosticist, preferred a no touch exam. I did listen to her heart and lung sounds otherwise asked her to palpate herself. - Chest: no tenderness elicited when patient palpated the affected area herself. - Extremities: no leg swelling noted on brief inspection. Emergency Department Course Discussion through pediatric speech language pathologist regarding symptom onset and characteristics. Bedside palpation performed by patient at clinician?s request demonstrating non- reproducible pain. Clinician considered need for chest X-ray; outcome not documented in transcript. Related Data Previous Rx's ?Medication ?Instructions ?Recorded ofloxacin 0.3 % eye drops 2 drp ophthalmic (eye) QID 5 days 11/06/24 #5 mL acetaminophen 500 mg tablet 1,000 mg (2 x 500 mg) PO Q 6H PRN 01/31/25 (Tylenol Extra Strength) pain #20 tabs ibuprofen 600 mg tablet 600 mg PO TID PRN pain #14 t abs 02/16/25 cefuroxime axetil 250 mg tablet 250 mg PO BID 7 days # 14 tabs 04/13/25 ketorolac 10 mg tablet 10 mg PO Q6H PRN pain #20 ta bs 04/24/25 vitamins with calcium 1 tab PO DAILY #90 tabs 05/04/25 no.72-iron 27 mg-folic acid 1 mg tablet ( Vitamins Plus Low Iron) cholecalciferol (vitamin D3) 25 25 mcg PO DAILY 3 dejuan hs #90 caps 05/08/25 mcg (1,000 unit) capsule polyethylene glycol 3350 17 gram 17 g PO DAILY #30 ea 07/18/25 oral powder packet (Miralax) Allergies Allergy/AdvReac Type Severity Reaction Status Date / Time pork derived (porcine) Allergy pork Verified 09/07/25 15:31 [facility] Past Medical History Medical History Fatigue Abnormal uterine bleeding (AUB) COVID-19 Social History Social History Alcohol intake: never Patient Tobacco Use Status: Never used Tobacco Smoked in Last 30 Days: No Use of substances other than those prescribed or required for medical reasons: No Advance Directives: No Advance Directives Information Provided: No Physical Exam 2 Vital Signs: Vital Signs: Last Vital Signs Temp 98.4 F 09/08/25 00:51 Pulse 86 09/08/25 00:51 Resp 16 09/08/25 00:51 BP 118/76 09/08/25 00:51 Pulse Ox 99 09/08/25 00:51 O2 Del Method Room Air 09/08/25 00:51 BMI result Body Mass Index 21.1 Course Course Course Narrative: This is a Rapid Medical Exam performed in triage by Kate Lilly PA-C. Full HPI, ROS and PE to be performed by primary ED provider. 40-year-old Jenni speaking female presenting to the ED c/o left sided chest pain @1am - & again 30mins OPTOMETRIC AIDE. With radiation of pain to back, described as wrapping around side. Also reports mild dysuria. denies rash PE: L lower rib reproducible tenderness. Abdomen is soft with LUQ ttp Plan: EKG, labs, CXR Medications Administered Discontinued Medications Generic Name Dose Route Start Last Admin Trade Name Fredina PRN Reason Stop Dose Admin Iohexol 100 ml 09/07/25 23:01 09/07/25 23:01 Iohexol 350 Mg/Ml 100 Ml Infus..Btl IV 09/07/25 23:02 65 ml ONCE ONE Administration Medical Decision Making Medical Decision Making MDM Narrative: Medical Decision Makin-year-old healthy female with an established PCP in the area originally from [facility] declined pediatric speech language pathologist male partner at the bedside interpreted for her she looked pleasant and comfortable she did not express chest wall tenderness or pleuritic pains Vital signs are stable. 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 CT excludes PE scarring was seen as seen in the report reassuring lab work could be musculoskeletal chest pain or stress induced given the circumstances Preliminary Favored Differential Diagnosis: Stress, anxiety, chest wall pain, costochondritis, rib contusion, pleuritis, PE, lung scarring, TB or pneumonia a chela additional considered etiologies Testing Interpreted Independently: ?See below for details Radiology or Lab testing Results Reviewed: ?See below for details Consults: ?See below for details Independent Historians/External Chart Reviews: ?See below for details Social Determinants of Health Impacting MDM/Planning: ?See below for details Lab Data 09/07/25 16:03 09/07/25 16:03 Labs: Lab Results 09/07/25 09/07/25 Range/Units 16:03 23:05 WBC 7.7 (4.8-10.8) X10*3/uL RBC 4.11 L (4.20-5.50) X10*6/uL Hgb 12.1 (12.0-16.0) g/dl Hct 36.0 L (37.0-47.0) % MCV 87.6 (80.0-98.0) fL MCH 29.4 (27.0-33.0) pg MCHC 33.6 (31.0-35.0) g/dl RDW 11.5 (11.0-16.0) % Plt Count 313 (160-400) X10*3/uL MPV 9.8 (9.4-12.3) fL Immature Gran % (Auto) 0.3 (0.0-0.4) % Neut % (Auto) 58.0 (45-73) % Lymph % (Auto) 30.6 (20-40) % [place]roy[place] % (Auto) 7.8 (2-11) % Eos % (Auto) 2.5 (0-4) % Baso % (Auto) 0.8 (0-2) % Lymph # (Auto) 2.4 (1.2-4.9) X10*3/uL [place] # (Auto) 0.6 (0.1-1.2) X10*3/uL Eos # (Auto) 0.2 (0.0-0.4) X10*3/uL Baso # (Auto) 0.1 (0.0-0.2) X10*3/uL Abs Immat Gran (auto) 0.02 (0.00-0.03) X10*3/uL Absolute Neuts (auto) 4.5 (2.0-8.3) x10*3/uL Absolute Nucleated RBC 0.000 (0.0-0.012) X10*3/uL Nucleated RBC % (auto) 0.0 (0.0-0.2) /100WBC Sodium 138 (135-145) mmol/L Potassium 4.0 (3.3-5.1) mmol/L Chloride 110 H (96-108) mmol/L Carbon Dioxide 24 (22-29) mmol/L Anion Gap 8 L (12-20) BUN 26 H (9-16) mg/dL Creatinine 0.84 (0.5-1.4) mg/dL Estim Creat Clear Calc 74.4 Estimated GFR > 60 Random Glucose 106 (60-115) mg/dL Calcium 8.7 (8.4-10.2) mg/dL Magnesium 2.0 (1.6-2.6) mg/dL Total Bilirubin 0.2 (0.0-1.0) mg/dL Direct Bilirubin < 0.2 (0.0-0.5) mg/dL AST 21 (5-31) U/L ALT 19 (0-31) U/L Alkaline Phosphatase 48 (39-117) U/L Troponin I High Sens < 2.7 (<3.5-17.0) ng/L Total Protein 6.5 (6.5-8.0) g/dL Albumin 4.1 (3.5-5.0) g/dL Lipase 43 (8-78) U/L Beta HCG, Quant < 2 mIU/mL Urine Color Yellow Urine Appearance Turbid Urine pH 7.0 (5.0-9.0) Ur Specific [place] >= 1.030 H (1.005-1.025) Urine Protein Negative (Neg-Trace) mg/dL Urine Glucose (UA) Negative (Negative) mg/dL Urine Ketones Negative (Negative) mg/dL Urine Blood Negative (Negative) Urine Nitrite Negative (Negative) Ur Leukocyte Esterase Trace H (Negative) Urine RBC 0-2 (0-2) /HPF Urine WBC 6-10 H (0-5) /HPF Ur Squamous Epith Cells >20 (0-2) /HPF Urine Bacteria 1+ (None Seen) Hyaline Casts 0-2 (0-2) /LPF Urine Test NEGATIVE (NEGATIVE) Discharge Plan Discharge Clinical Impression: Chest pain Patient Disposition: Home, Self-Care Instructions: Chest Pain (ED) Additional Instructions: You were evaluated for left-sided chest pain. You had a reassuring emergency department workup including negative blood tests that look for heart attack. You had a chest x-ray followed by a chest CT which is better imaging of the chest this showed some scarring in the upper lobes of the lung this could be from previous TB infection. There was no blood clot or other significant acute or emergent findings on the studies. Please follow up with the primary physician. Prescriptions: No Action cholecalciferol (vitamin D3) 25 mcg (1,000 unit) capsule 25 mcg PO DAILY 90 Days Qty: 90 1RF ofloxacin 0.3 % drops 2 drp ophthalmic (eye) QID 5 Days Qty: 5 0RF acetaminophen [Tylenol Extra Strength] 500 mg tablet 1,000 mg PO Q6H PRN (Reason: pain) Qty: 20 0RF cefuroxime axetil 250 mg tablet 250 mg PO BID 7 Days Qty: 14 0RF ketorolac 10 mg tablet 10 mg PO Q6H PRN (Reason: pain) Qty: 20 0RF Rx Instructions: maximum total duration of 5 days from all oral, intranasal, or parenteral formulations. Patient received an intramuscular dose of Toradol here in the emergency room polyethylene glycol 3350 [Miralax] 17 gram powder in packet 17 g PO DAILY Qty: 30 0RF ibuprofen 600 mg tablet 600 mg PO TID PRN (Reason: pain) Qty: 14 0RF Vitamin Plus Low Iron 27 mg iron- 1 mg tablet 1 tab PO DAILY Qty: 90 4RF Interventions: ED Discharge Assessment Last Done: 09/08/25 00:51 Discharge Date/Time: 09/08/25 00:53 Print Language: Other
--- NOTE | 2025-09-07 15:33 | ECG_ITS ---
Test Reason : CP Blood Pressure : */* mmHG Vent. Rate : 85 BPM Atrial Rate : 85 BPM P-R Int : 148 ms QRS Dur : 82 ms QT Int : 370 ms P-R-T Axes : 75 74 61 degrees QTcB Int : 440 ms Normal sinus rhythm Normal ECG When compared with ECG of 16-Feb-2025 18:10, No significant change was found Referred By: Kate Lilly Electronically Signed By: RAGHU REYES
[2025-09-07 16:19] LABS: MANUAL DIFF FLAG NO
[2025-09-07 16:26] LABS: Hematocrit 36.0 % (37.0-47.0); Hemoglobin 12.1 g/dl (12.0-16.0); Imm Gran Abs Auto 0.02 X10*3/uL (0.00-0.03); Imm Gran Pct Auto 0.3 % (0.0-0.4); Lymphocytes Absolute Auto 2.4 X10*3/uL (1.2-4.9); Mean Corpuscular HGB Conc 33.6 g/dl (31.0-35.0); Mean Corpuscular Hemoglobin 29.4 pg (27.0-33.0); Mean Corpuscular Volume 87.6 fL (80.0-98.0); NRBC Abs Auto 0.000 X10*3/uL (0.0-0.012); NRBC Pct Auto 0.0 /100WBC (0.0-0.2); Platelet Count 313 X10*3/uL (160-400); Red Blood Count 4.11 X10*6/uL (4.20-5.50); White Blood Count 7.7 X10*3/uL (4.8-10.8)
[2025-09-07 16:34] LABS: Alanine Aminotransferase 19 U/L (0-31); Albumin Level 4.1 g/dL (3.5-5.0); Alkaline Phosphatase 48 U/L (39-117); Anion Gap 8 (12-20); Aspartate Amino Transferase 21 U/L (5-31); Blood Urea Nitrogen 26 mg/dL (9-16); Calcium 8.7 mg/dL (8.4-10.2); Carbon Dioxide 24 mmol/L (22-29); Chloride 110 mmol/L (96-108); Creatinine Clr Calc Pharmacy 74.4; Estimated Glomerular Filt Rate > 60; Lipase 43 U/L (8-78); Magnesium 2.0 mg/dL (1.6-2.6); Potassium 4.0 mmol/L (3.3-5.1); Sodium 138 mmol/L (135-145); Total Protein 6.5 g/dL (6.5-8.0)
[2025-09-07 16:45] LABS: Troponin-I High Sensitivity < 2.7 ng/L (<3.5-17.0)
[2025-09-07 21:46] VITALS: BP 121/88; PULSE 82; RESP 15; TEMP 36.8; O2SAT 100
[2025-09-07 22:42] VITALS: BP 121/75; PULSE 83; RESP 19; TEMP 36.6; O2SAT 100
[2025-09-07] MEDS: iohexoL 350 MG/ML 100 ML INFUS..BTL IV (23:01)
[2025-09-07 23:16] LABS: UPreg QC Valid YES
[2025-09-07 23:18] LABS: Appearance Urine Turbid; Glucose Urine UA Negative (Negative); PH 7.0 (5.0-9.0); Specific Gravity - Urine >= 1.030 (1.005-1.025); UMIC TRIGGER UACC YES
[2025-09-07 23:26] LABS: UACC Culture Trigger YES
[2025-09-08 00:51] VITALS: BP 118/76; PULSE 86; RESP 16; TEMP 36.9; O2SAT 99
--- OUTSIDE RECORDS SUMMARY | 2025-09-08 05:17 | XMS_ITS | Clinical Summary ---
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
--- OUTSIDE RECORDS SUMMARY | 2025-09-08 05:17 | XMS_ITS | Data Portability ---
Author Organization [place] [facility], Allergy Address [address] [address] Care Team Providers Care Extender Name Role Phone [facility] Primary Care Provider [phone] Assessment Encounter Date Assessment Date Assessment LastModified by Organization Details LastModified Time 02/01/2025 02/01/2025 39-year-old female with longstanding recurrent ear infections and pain which have not always been treated, presents with worsening right-sided otalgia and hearing loss, not associated with dizziness, for which she was seen in the emergency department at [place] with CT showing otitis media with erosion [...] eye drops,susp ension 2024 0[address] [id number] [employer], [address] [place], [address], 11:16:22 Patient TargetsNo targets recorded. Patient InstructionsNo instructions recorded. Reason for Referral None Reported. Results Created Date Observation Date Name Description Value Unit Range Abnormal Flag Note LastModifiedBy Organization Detail LastModifiedTime 02/02/2001/31/2025 CT, tempo ral bone, w/o contr ast No observ ation record ed. [email or web address] [place] [address] (Medical Records) [address] [place], [address], 03/04/2025 16:37:19 02/02/2001/31/2025 CT, tempo ral bone, w/o contr ast No observ ation record ed. [facility] (Centralized) [address] [facility] [address], [place], [address], 02/02/2025 10:16:19 02/09/2001/31/2025 CT, tempo ral bone, w/o contr ast No observ ation record ed. [email or web address] Not Available 01/19 10:39:51 Result Notes None recorded. Problems Name Problem SNOMED Code Status Onset Date Resolution Date Notes Provider Name and Address Organization Details Recorded Time Marginal perforation of right tympanic membrane 8910491968720 109 Active 2024 PAYTON OVALLES MD [address] [facility] [address], [place], [address], [facility] - [facility] 11:14:41 Central perforation of left tympanic membrane 1955891615425 107 Active 2024 PAYTON OVALLES MD [address] [facility] [address], [place], [address], [facility] - [facility] 11:14:46 Central perforation of right tympanic membrane 9394590550004 101 Active 2024 PAYTON OVALLES MD [address] [address], [place], [address], [facility] - [facility] [place] 11:14:51 Mixed conductive and sensorineur al hearing loss, bilateral 618818869 Active 2024 ACACIA KAHN, [facility] [address] [address], [place], [address], [facility] [place] 11:36:16 Problem Notes None recorded. Procedures Surgical History Date Name Laterality Status Provider Name and Address Organization Details Recorded Time 02/02/20 25 Tympanometry - 81202 completed AACCIA KAHN [facility] [address] [facility],[address] [address], [place], [address], [facility] - [facility] [place] 02/01/2025 11:31:13 02/02/20 25 Air [employer] Bone Audio - 65102 completed ACACIA KAHN [facility] [address] [facility],[address] [address], [place], [address], [facility] - [facility] [place] 02/01/2025 11:30:45 Imaging Results None recorded. Procedure [...] Updated DateTime 02/01/2025 157.48 cm 20.1 kg/m2 38190.16 g Oly Melissa [place] [facility] 02/01/2025 10:45:54 Social History None recorded. Functional Status None recorded. Mental Status None recorded. Family History Nothing Reported. Medical History No medical history recorded. Gynecological HistoryNo gynecological history recorded. Obstetrics History GPAL:G 0 P 0 0 0 0 Past Encounters Encounter ID Performer Location Encounter Start Date Encounter Closed Date Diagnosis/Indication Diagnosis SNOMED-CT Code Diagnosis ICD10 Code Diagnosis IMO Codes Diagnosis Note [id number] PAYTON OVALLES MD [facility] on [address] [place] [address] 02/01/2025 10:33:32 02/01/2025 12:10:44 Central perforation of left tympanic membrane 4746700415 808294 H72.02 Central pe rforation of right tympanic membrane 5062914850 316898 H72.01 Mixed cond uctive and sensorineural hearing loss, bilateral 617693367 H90.6 Audiologic al evaluation results:Ri ght ear:Severe [...] Sanchez Member ID Guarantor Name 03/28/2025 1 [place] [facility] Ursula Alexandre [id number] Ursula Alexandre Notes Date Note Type Note Provider Name and Address Organization Details Recorded Time 02/01/2025 text/html ROS as noted in the HPI 39-year-old female presents today for ear painED last night in [place] with hearing loss and painShe had a [...] worse on the right PAYTON OVALLES MD [address] [place] [address], [place], [address], [place] [facility] 02/03/2025 16:54:07 OBGyn Episode No OBEpisode recorded.
== END 2025-09-08 00:53 | disposition home or self-care (01) ==
PROVIDERS: Physician Assistant; Emergency Provider Emergency Medicine
DX: R07.9 Chest pain, unspecified (principal); R53.1 Weakness
CPT/HCPCS: 36415; 71046; 71275; 80048; 80076; 81001; 81025; 83690; 83735; 84484; 84702; 85025; 87086; 93005; 99285; Q9967

== ENCOUNTER → 2025-09-07 15:33 | Outpatient (BNV) | payer MEDICAID, SELFPAY | PROVIDERS: Visit Provider Radiology Body Imaging | DX: R07.81 Pleurodynia (principal) | CPT/HCPCS: 71046; 71275 ==

== ENCOUNTER → 2025-09-07 15:33 | Outpatient (BNV) | payer MEDICAID, SELFPAY | PROVIDERS: Emergency Provider Emergency Medicine; Visit Provider Internal Medicine | DX: R07.9 Chest pain, unspecified (principal) | CPT/HCPCS: 93010 ==